=== PATIENT | female | born 1930 | race Caucasian/White ===

== ENCOUNTER → 2018-08-28 | Day surgery (SDC) | payer MEDICARE ==
[~2018-08-28] MED LIST: LACTATED RINGERS 1,000 ML IV SCH; LIDOCAINE 1% 20 ML VIAL (10MG/ML) FOR IV START INTRADERMA PRN; LIDOCAINE 1% INJ 10MG/ML (20 ML MDV) ONE; PROPOFOL 10 MG/ML 20 ML VIAL IV ONE
--- NOTE | 2018-08-28 08:19 | P.GSHP ---
History of Present Illness H&P Date: 08/28/18 CHIEF COMPLAINT: GERD and colon screen HISTORY OF PRESENT ILLNESS: The patient is a 88-year-old female who presents with gastroesophageal reflux disease and need for colon screen. Upper and lower endoscopy were offered for further evaluation and management. PAST MEDICAL HISTORY: Please see list. PAST SURGICAL HISTORY: Please see list. MEDICATIONS: Please see list. ALLERGIES: Please see list. SOCIAL HISTORY: No illicit drug use FAMILY HISTORY: No reports of Crohn disease or ulcerative colitis. REVIEW OF ORGAN SYSTEMS: CONSTITUTIONAL: No reports of fevers or chills. GI: Denies any blood in stools or constipation. PHYSICAL EXAM: VITAL SIGNS: Stable GENERAL: Well-developed pleasant in no acute distress. HEENT: No scleral icterus. Extraocular movements grossly intact. Moist buccal mucosa. NECK: Supple without lymphadenopathy. CHEST: Unlabored respirations. Equal bilateral excursions. CARDIOVASCULAR: Regular rate and rhythm. Distal 2+ pulses. ABDOMEN: Soft, nondistended. MUSCULOSKELETAL: No clubbing, cyanosis, or edema. ASSESSMENT: 1. Gastroesophageal reflux disease 2. Colon screen. PLAN: 1. Recommend proceeding with an upper and lower endoscopy Past Medical History Past Medical History: Hypertension, Osteoarthritis (OA), Thyroid Disorder Additional Past Medical History / Comment(s): PRE-DIABETIC History of Any Multi-Drug Resistant Organisms: None Reported Past Surgical History: Adenoidectomy, Cholecystectomy, Orthopedic Surgery, Tonsillectomy Additional Past Surgical History / Comment(s): BILATERAL CATARACTS. RIGHT ROTATOR CUFF. LEFT CARPAL TUNNEL. Past Anesthesia/Blood Transfusion Reactions: No Reported Reaction Past Psychological History: No Psychological Hx Reported Smoking Status: Never smoker Past Alcohol Use History: Rare Past Drug Use History: None Reported Medications and Allergies Home Medications Medication Instructions Recorded Confirmed Type Acetaminophen Tab [Tylenol] 1 tab PO DAILY 08/26/18 08/26/18 History Biotin 1 tab PO DAILY 08/26/18 08/26/18 History Cholecalciferol [Vitamin D3] 1 tab PO DAILY 08/26/18 08/26/18 History Cranberry Fruit Extract [Cranberry] 1 tab PO DAILY 08/26/18 08/26/18 History Levothyroxine Sodium [Synthroid] 50 mcg PO QAM 08/26/18 08/26/18 History Niacin 1 tab PO DAILY 08/26/18 08/26/18 History amLODIPine [Norvasc] 10 mg PO QAM 08/26/18 08/26/18 History Allergies Allergy/AdvReac Type Severity Reaction Status Date / Time acetaminophen [From Lortab] AdvReac Rash/Hives Verified 08/26/18 11:01 ciprofloxacin AdvReac Rash/Hives Verified 08/26/18 11:01 hydrocodone [From Lortab] AdvReac Rash/Hives Verified 08/26/18 11:01 NSAIDS (Non-Steroidal AdvReac KIDNEY Verified 08/26/18 11:01 Anti-Inflamma PROBLEMS
[2018-08-28 11:02] VITALS: TEMP 97.7
--- NOTE | 2018-08-28 12:03 | P.PCN ---
Date of Procedure: 08/28/18 Description of Procedure: PREOPERATIVE DIAGNOSIS: Altered bowel function POSTOPERATIVE DIAGNOSIS: Altered bowel function Tubular adenoma, sigmoid colon. External hemorrhoids, grade 2. OPERATION: Colonoscopy to the ileocecal valve and appendiceal orifice. Colonoscopy with hot snare polypectomies Colonoscopy with ablation SURGEON: Glory Villela MD. ANESTHESIA: MAC. INDICATIONS: The patient is a 88-year-old female who presents with change in bowel habits. Benefits and risks were described and informed consent was obtained. DESCRIPTION OF PROCEDURE: The patient had undergone Gatorade, MiraLAX and Dulcolax prep. She had been brought into the operating room and laid in the left lateral decubitus position. After adequate intravenous sedation, the rectum was examined with 2% lidocaine jelly. External hemorrhoids were encountered. The rectal tone was within normal limits. No lesions were palpated in the rectal vault. An Olympus colonoscope was advanced until the ileocecal valve and appendiceal orifice were clearly viewed. The prep was fair with visualization of the mucosal folds. The scope was removed with visualization of each mucosal fold. Severe sigmoid diverticulosis was encountered. Colonic polyps treated with snare polypectomy and ablation. No evidence of focal colitis was found. Retroflexion of the scope demonstrated grade 1 internal hemorrhoids without active bleeding or inflammation. The colon was desufflated. The patient had tolerated the procedure well. Withdrawal time was over 6 minutes. FINDINGS: [place] preparation quality scale 1 (1-5) Internal hemorrhoids, grade 1 External hemorrhoids, grade 2. No arteriovenous malformations. Removal of 2 polyps from the proximal, mid transverse colon and descending colon: - Snare polypectomy 25 cm from the anal verge, 5 mm tubulovillous adenoma polyp, sigmoid colon - Ablation of polyp at 20 cm from the anal verge, 4 mm flat villous adenoma polyp, sigmoid colon Severe sigmoid diverticulosis No focal colitis. RECOMMENDATIONS: Repeat colonoscopy in 5 years, 2023 or use Cologaurd Plan - Discharge Summary Discharge Rx Participant: No New Discharge Prescriptions: No Action amLODIPine [Norvasc] 10 mg PO QAM Niacin 1 tab PO DAILY Levothyroxine Sodium [Synthroid] 50 mcg PO QAM Cranberry Fruit Extract [Cranberry] 1 tab PO DAILY Cholecalciferol [Vitamin D3] 1 tab PO DAILY Biotin 1 tab PO DAILY Acetaminophen Tab [Tylenol] 1 tab PO DAILY Discharge Medication List Acetaminophen Tab [Tylenol] 1 tab PO DAILY 08/26/18 [History] Biotin 1 tab PO DAILY 08/26/18 [History] Cholecalciferol [Vitamin D3] 1 tab PO DAILY 08/26/18 [History] Cranberry Fruit Extract [Cranberry] 1 tab PO DAILY 08/26/18 [History] Levothyroxine Sodium [Synthroid] 50 mcg PO QAM 08/26/18 [History] Niacin 1 tab PO DAILY 08/26/18 [History] amLODIPine [Norvasc] 10 mg PO QAM 08/26/18 [History] Follow up Appointment(s)/Referral(s): Glory Villela MD [STAFF PHYSICIAN] - 09/10/18 Patient Instructions/Handouts: Diverticulosis (DC), Diverticulosis Diet (GEN), Colorectal Polyps (DC) Activity/Diet/Wound Care/Special Instructions: Lower endoscopy in 5 years, 2023 for history of polyps Discharge Disposition: HOME SELF-CARE
[2018-08-28 12:17] VITALS: BP 182/90; PULSE 71; RESP 17
== END | disposition home or self-care (01) ==
LOC: ORWHC2ENDO 10:31
PROVIDERS: ATTEND Surgery Plastic and Reconstructive Surgery
DX: D12.5 Benign neoplasm of sigmoid colon (principal); K57.30 Diverticulosis of large intestine without perforation or abscess without bleeding; K64.0 First degree hemorrhoids; K64.4 Residual hemorrhoidal skin tags; I10 Essential (primary) hypertension; M19.90 Unspecified osteoarthritis, unspecified site; E07.9 Disorder of thyroid, unspecified; Z88.6 Allergy status to analgesic agent; Z88.1 Allergy status to other antibiotic agents; Z88.5 Allergy status to narcotic agent; Z90.49 Acquired absence of other specified parts of digestive tract; Z79.890 Hormone replacement therapy; Z79.899 Other long term (current) drug therapy
CPT/HCPCS: 88305; 45388; 45385; J2001; J2704

== ENCOUNTER 2019-06-02 11:49 | Emergency (ER) | payer MEDICARE ==
[2019-06-02] MEDS ORDERED: SODIUM CHLORIDE 0.9% 1,000 ML IV STA (13:22)
[2019-06-02] MEDS ORDERED: DICYCLOMINE 10 MG CAP PO STA (13:22)
[2019-06-02 13:37] LABS: Basophils % (A) 0 %; Eosinophils # (A) 0.1 k/uL (0-0.7); Eosinophils % (A) 1 %; HCT 44.2 % (34.0-46.0); HGB 15.1 gm/dL (11.4-16.0); Lymphocytes # (A) 1.4 k/uL (1.0-4.8); Lymphocytes % (A) 12 %; MCH 30.5 pg (25.0-35.0); MCHC 34.3 g/dL (31.0-37.0); Mean Platelet Volume 10.3; Monocytes # (A) 0.5 k/uL (0-1.0); Monocytes % (A) 5 %; Neutrophils # (A) 9.2 k/uL (1.3-7.7); Neutrophils % (A) 80 %; Platelet Count 177 k/uL (150-450); RBC 4.96 m/uL (3.80-5.40); WBC 11.6 k/uL (3.8-10.6)
[2019-06-02 13:43] LABS: Albumin 3.7 g/dL (3.5-5.0); Calcium 9.5 mg/dL (8.4-10.2); Total Bilirubin 1.4 mg/dL (0.2-1.3); Total Protein 7.1 g/dL (6.3-8.2)
[2019-06-02 13:56] LABS: Potassium 4.3 mmol/L (3.5-5.1)
[2019-06-02 14:19] VITALS: RESP 20
[2019-06-02 14:30] LABS: Amorphous Sediment,Urine Rare /hpf; Appearance,Urine Cloudy (Clear); Bacteria,Urine Many /hpf; Bilirubin,Urine Negative (Negative); Blood,Urine Small (Negative); Color,Urine Yellow; Glucose,Urine (UA) Negative (Negative); Ketones,Urine 1+ (Negative); Leukocyte Esterase,Urine Large (Negative); Mucus,Urine Many /hpf; Nitrite,Urine Positive (Negative); Protein,Urine 2+ (Negative); RBC,Urine 3 /hpf (0-5); Specific Gravity,Urine 1.023 (1.001-1.035); Squamous Epithelial Cell,Urine 5 /hpf (0-4); Urobilinogen,Urine <2.0 mg/dL (<2.0); WBC,Urine 155 /hpf (0-5)
[2019-06-02] MEDS ORDERED: cefTRIAXone IN SWFI 1,000 MG/10 ML SYRINGE IVP STA (16:25)
--- NOTE | 2019-06-02 16:42 | ED ---
Nausea/Vomiting/Diarrhea HPI - General Chief complaint: Nausea/Vomiting/Diarrhea Stated complaint: diarrhea Source: patient Mode of arrival: wheelchair Limitations: no limitations - History of Present Illness Initial comments: The patient is an 88 year old female with past medical history of hypertension and thyroid disease who presents to the emergency Department with reported diarrhea since . The patient states that she went out to eat restaurant and afterwards began having an upset stomach with vomiting. Denies that it is bloody or bilious. She also developed loose, watery stool. Denies hematochezia or melanotic stools. The vomiting ceased however she has continued to have diarrhea. States that it affects her every time she eats something. She has avoided any type of food intake because of the persistent diarrhea. She denies any recent travel or antibiotic use. Denies any current abdominal pain. Denies dysuria, hematuria or difficulty voiding. Denies any chest pain or shortness of breath. No back or flank pain. No fevers or chills. There are no other alleviating, precipitating or modifying factors - Related Data Home Medications Medication Instructions Recorded Confirmed Acetaminophen Tab [Tylenol] 1 tab PO DAILY 08/26/18 08/28/18 Biotin 1 tab PO DAILY 08/26/18 08/28/18 Cholecalciferol [Vitamin D3] 1 tab PO DAILY 08/26/18 08/28/18 Cranberry Fruit Extract [Cranberry] 1 tab PO DAILY 08/26/18 08/28/18 Levothyroxine Sodium [Synthroid] 50 mcg PO QAM 08/26/18 08/28/18 Niacin 1 tab PO DAILY 08/26/18 08/28/18 amLODIPine [Norvasc] 10 mg PO QAM 08/26/18 08/28/18 Previous Rx's Medication Instructions Recorded Cephalexin [Keflex] 500 mg PO Q12HR #14 cap 06/02/19 Dicyclomine [Bentyl] 10 mg PO TID PRN #20 tablet 06/02/19 Ondansetron Odt [Zofran Odt] 4 mg PO Q8HR PRN #10 tab 06/02/19 Allergies Allergy/AdvReac Type Severity Reaction Status Date / Time acetaminophen [From Lortab] AdvReac Rash/Hives Verified 06/02/19 12:43 ciprofloxacin AdvReac Rash/Hives Verified 06/02/19 12:43 hydrocodone [From Lortab] AdvReac Rash/Hives Verified 06/02/19 12:43 NSAIDS (Non-Steroidal AdvReac KIDNEY Verified 06/02/19 12:43 Anti-Inflamma PROBLEMS Review of Systems ROS Statement: Those systems with pertinent positive or pertinent negative responses have been documented in the HPI. ROS Other: All systems not noted in ROS Statement are negative. Past Medical History Past Medical History: Hypertension, Osteoarthritis (OA), Thyroid Disorder Additional Past Medical History / Comment(s): PRE-DIABETIC History of Any Multi-Drug Resistant Organisms: None Reported Past Surgical History: Adenoidectomy, Cholecystectomy, Orthopedic Surgery, Tonsillectomy Additional Past Surgical History / Comment(s): BILATERAL CATARACTS. RIGHT ROTATOR CUFF. LEFT CARPAL TUNNEL. Past Anesthesia/Blood Transfusion Reactions: No Reported Reaction Past Psychological History: No Psychological Hx Reported Smoking Status: Never smoker Past Alcohol Use History: None Reported Past Drug Use History: None Reported General Exam Limitations: no limitations Course Vital Signs 06/02/19 06/02/19 06/02/19 12:41 12:43 13:43 Temperature 98.0 F Pulse Rate 77 Respiratory 18 18 18 Rate Blood Pressure 134/67 O2 Sat by Pulse 97 97 97 Oximetry 06/02/19 06/02/19 06/02/19 14:00 15:00 16:00 Temperature Pulse Rate 68 68 Respiratory 20 20 20 Rate Blood Pressure 175/78 163/75 162/73 O2 Sat by Pulse 97 95 95 Oximetry 06/02/19 06/02/19 06/02/19 17:00 18:00 18:17 Temperature 100.7 F H Pulse Rate 67 71 Respiratory 20 20 20 Rate Blood Pressure 143/56 144/63 144/63 O2 Sat by Pulse 95 96 98 Oximetry Medical Decision Making - Medical Decision Making Upon arrival the patient was placed into room 18. A thorough history and physical exam was performed. Peripheral IV was established. The patient was given a liter bolus of normal saline. He did offer her something for pain and nausea however the patient refuses nausea medications. She did except Bentyl. Laboratory studies demonstrated a white blood cell count of 11.6. Creatinine is 1.1. Achilles are 1.4. Urinalysis shows small blood, positive nitrates, 155 white blood cells, 5 epithelial cells, many bacteria. Stool is negative for C. diff and blood area and I discussed results with the patient. She was given a dose of Rocephin for urinary tract infection. Repeat vital demonstrate that the patient does spike a fever of 100.7. Remainder of vitals are stable. I discussed diagnosis, differential and treatment options. I did offer imaging to the patient however she refused. At this time the patient will be discharged home and given prescriptions for Bentyl, Zofran and Keflex. RUFUS rose primary care doctor to 4 days. Return to the emergency room for any new or worsening symptoms. The patient was in agreement with the treatment plan and discharged home in stable condition - Lab Data Result diagrams: 06/02/19 13:00 06/02/19 13:00 Lab Results 06/02/19 06/02/19 06/02/19 Range/Units 13:00 13:00 13:00 WBC 11.6 H (3.8-10.6) k/uL RBC 4.96 (3.80-5.40) m/uL Hgb 15.1 (11.4-16.0) gm/dL Hct 44.2 (34.0-46.0) % MCV 89.0 (80.0-100.0) fL MCH 30.5 (25.0-35.0) pg MCHC 34.3 (31.0-37.0) g/dL RDW 14.0 (11.5-15.5) % Plt Count 177 (150-450) k/uL Neutrophils % 80 % Lymphocytes % 12 % Monocytes % 5 % Eosinophils % 1 % Basophils % 0 % Neutrophils # 9.2 H (1.3-7.7) k/uL Lymphocytes # 1.4 (1.0-4.8) k/uL Monocytes # 0.5 (0-1.0) k/uL Eosinophils # 0.1 (0-0.7) k/uL Basophils # 0.0 (0-0.2) k/uL Sodium 135 L (137-145) mmol/L Potassium 4.3 (3.5-5.1) mmol/L Chloride 103 (98-107) mmol/L Carbon Dioxide 22 (22-30) mmol/L Anion Gap 10 mmol/L BUN 30 H (7-17) mg/dL Creatinine 1.11 H (0.52-1.04) mg/dL Est GFR (CKD-EPI)AfAm 52 (>60 ml/min/1.73 sqM) Est GFR (CKD-EPI)NonAf 45 (>60 ml/min/1.73 sqM) Glucose 99 (74-99) mg/dL Plasma Lactic Acid Abdoulaye 1.1 (0.7-2.0) mmol/L Calcium 9.5 (8.4-10.2) mg/dL Total Bilirubin 1.4 H (0.2-1.3) mg/dL AST 36 (14-36) U/L ALT 19 (4-34) U/L Alkaline Phosphatase 101 (38-126) U/L Total Protein 7.1 (6.3-8.2) g/dL Albumin 3.7 (3.5-5.0) g/dL Lipase 117 (23-300) U/L TSH 2.220 (0.465-4.680) mIU/L Urine Color Urine Appearance (Clear) Urine pH (5.0-8.0) Ur Specific [place] (1.001-1.035) Urine Protein (Negative) Urine Glucose (UA) (Negative) Urine Ketones (Negative) Urine Blood (Negative) Urine Nitrite (Negative) Urine Bilirubin (Negative) Urine Urobilinogen (<2.0) mg/dL Ur Leukocyte Esterase (Negative) Urine RBC (0-5) /hpf Urine WBC (0-5) /hpf Ur Squamous Epith Cells (0-4) /hpf Amorphous Sediment (None) /hpf Urine Bacteria (None) /hpf Urine Mucus (None) /hpf Stool Occult Blood (Negative) C. difficile (EIA) Intrp (Negative) 06/02/19 06/02/19 06/02/19 Range/Units 13:50 16:35 16:35 WBC (3.8-10.6) k/uL RBC (3.80-5.40) m/uL Hgb (11.4-16.0) gm/dL Hct (34.0-46.0) % MCV (80.0-100.0) fL MCH (25.0-35.0) pg MCHC (31.0-37.0) g/dL RDW (11.5-15.5) % Plt Count (150-450) k/uL Neutrophils % % Lymphocytes % % Monocytes % % Eosinophils % % Basophils % % Neutrophils # (1.3-7.7) k/uL Lymphocytes # (1.0-4.8) k/uL Monocytes # (0-1.0) k/uL Eosinophils # (0-0.7) k/uL Basophils # (0-0.2) k/uL Sodium (137-145) mmol/L Potassium (3.5-5.1) mmol/L Chloride (98-107) mmol/L Carbon Dioxide (22-30) mmol/L Anion Gap mmol/L BUN (7-17) mg/dL Creatinine (0.52-1.04) mg/dL Est GFR (CKD-EPI)AfAm (>60 ml/min/1.73 sqM) Est GFR (CKD-EPI)NonAf (>60 ml/min/1.73 sqM) Glucose (74-99) mg/dL Plasma Lactic Acid Abdoulaye (0.7-2.0) mmol/L Calcium (8.4-10.2) mg/dL Total Bilirubin (0.2-1.3) mg/dL AST (14-36) U/L ALT (4-34) U/L Alkaline Phosphatase (38-126) U/L Total Protein (6.3-8.2) g/dL Albumin (3.5-5.0) g/dL Lipase (23-300) U/L TSH (0.465-4.680) mIU/L Urine Color Yellow Urine Appearance Cloudy H (Clear) Urine pH 6.0 (5.0-8.0) Ur Specific [place] 1.023 (1.001-1.035) Urine Protein 2+ H (Negative) Urine Glucose (UA) Negative (Negative) Urine Ketones 1+ H (Negative) Urine Blood Small H (Negative) Urine Nitrite Positive H (Negative) Urine Bilirubin Negative (Negative) Urine Urobilinogen <2.0 (<2.0) mg/dL Ur Leukocyte Esterase Large H (Negative) Urine RBC 3 (0-5) /hpf Urine WBC 155 H (0-5) /hpf Ur Squamous Epith Cells 5 H (0-4) /hpf Amorphous Sediment Rare H (None) /hpf Urine Bacteria Many H (None) /hpf Urine Mucus Many H (None) /hpf Stool Occult Blood Negative (Negative) C. difficile (EIA) Intrp Negative (Negative) Disposition Clinical Impression: Acute diarrhea Disposition: HOME SELF-CARE Condition: Stable Instructions (If sedation given, give patient instructions): Acute Diarrhea (ED) Additional Instructions: Please follow up with the primary care doctor in 2-4 days. Return to the emergency room for any worsening symptoms. take the Keflex as directed for urinary tract infection. Take the Zofran for nausea. Take the Bentyl for diarrhea. Prescriptions: Dicyclomine [Bentyl] 10 mg PO TID PRN #20 tablet PRN Reason: Diarrhea Cephalexin [Keflex] 500 mg PO Q12HR #14 cap Ondansetron Odt [Zofran Odt] 4 mg PO Q8HR PRN #10 tab PRN Reason: Nausea Is patient prescribed a controlled substance at d/c from ED?: No Referrals: Dwaine Fernandez DO [Primary Care Provider] - 1-2 days Time of Disposition: 17:41
[2019-06-02 18:00] VITALS: TEMP 100.7
[2019-06-02 18:09] VITALS: BP 144/63; PULSE 71
== END 2019-06-02 18:19 | disposition home or self-care (01) ==
LOC: EC 11:49
DX: R19.7 Diarrhea, unspecified (principal); R11.2 Nausea with vomiting, unspecified; N39.0 Urinary tract infection, site not specified; I10 Essential (primary) hypertension; E07.9 Disorder of thyroid, unspecified; Z79.890 Hormone replacement therapy; Z79.899 Other long term (current) drug therapy; Z88.1 Allergy status to other antibiotic agents; Z88.5 Allergy status to narcotic agent; Z88.6 Allergy status to analgesic agent
CPT/HCPCS: 36415; 80053; 84443; 83605; 83690; 85025; 82272; 81001; 87324; 87086; 87045; 83630; 87046; 99284; 96374; 96361; J0696; 87077; 87186

== ENCOUNTER 2019-11-20 15:01 | Emergency (ER) | payer MEDICARE ==
[2019-11-20 15:16] VITALS: RESP 16
[2019-11-20] MEDS ORDERED: SODIUM CHLORIDE 0.9% 500 ML 500 ML IV STA (15:53)
[2019-11-20 16:05] LABS: Basophils # (A) 0.1 k/uL (0-0.2); Basophils % (A) 1 %; Eosinophils # (A) 0.4 k/uL (0-0.7); Eosinophils % (A) 4 %; HCT 48.8 % (34.0-46.0); HGB 15.9 gm/dL (11.4-16.0); Lymphocytes # (A) 3.7 k/uL (1.0-4.8); Lymphocytes % (A) 31 %; MCH 29.3 pg (25.0-35.0); MCHC 32.6 g/dL (31.0-37.0); MCV 89.9 fL (80.0-100.0); Mean Platelet Volume 9.1; Monocytes # (A) 0.6 k/uL (0-1.0); Monocytes % (A) 5 %; Neutrophils # (A) 6.9 k/uL (1.3-7.7); Neutrophils % (A) 58 %; Platelet Count 261 k/uL (150-450); RBC 5.44 m/uL (3.80-5.40); RDW 14.8 % (11.5-15.5); WBC 11.9 k/uL (3.8-10.6)
[2019-11-20 16:17] LABS: Albumin 4.6 g/dL (3.5-5.0); Calcium 10.3 mg/dL (8.4-10.2); Total Bilirubin 1.3 mg/dL (0.2-1.3); Total Protein 8.1 g/dL (6.3-8.2)
--- NOTE | 2019-11-20 16:41 | ED ---
Abdominal Pain HPI - General Chief Complaint: Abdominal Pain Stated Complaint: diarrhea Time Seen by Provider: 11/20/19 15:21 Source: patient Mode of arrival: wheelchair Limitations: no limitations - History of Present Illness Initial Comments: Patient is an 89-year-old female presenting to the emergency Department with complaints of 2 episodes of diarrhea since Sunday. Patient states she had one episode on Sunday and then again yesterday and this morning. Patient states she has had "E. coli poisoning" in the past and is getting concerned that she is getting sick again. Patient admits to one episode of left upper quadrant "pinching" that happened on Sunday but nothing since then. Patient denies any recent fever, chills, nausea, vomiting. She denies any abdominal pain. She denies chest pain, shortness of breath. She has been able to eat and drink as normal. She admits to history of cholecystectomy, no other abdominal surgeries. She has no further complaints at this time. Upon arrival to the ER, her vitals are stable. - Related Data Home Medications Medication Instructions Recorded Confirmed Acetaminophen Tab [Tylenol] 1 tab PO DAILY 08/26/18 08/28/18 Biotin 1 tab PO DAILY 08/26/18 08/28/18 Cholecalciferol [Vitamin D3] 1 tab PO DAILY 08/26/18 08/28/18 Cranberry Fruit Extract [Cranberry] 1 tab PO DAILY 08/26/18 08/28/18 Levothyroxine Sodium [Synthroid] 50 mcg PO QAM 08/26/18 08/28/18 Niacin 1 tab PO DAILY 08/26/18 08/28/18 amLODIPine [Norvasc] 10 mg PO QAM 08/26/18 08/28/18 Previous Rx's Medication Instructions Recorded Cephalexin [Keflex] 500 mg PO Q12HR #14 cap 06/02/19 Dicyclomine [Bentyl] 10 mg PO TID PRN #20 tablet 06/02/19 Ondansetron Odt [Zofran Odt] 4 mg PO Q8HR PRN #10 tab 06/02/19 Allergies Allergy/AdvReac Type Severity Reaction Status Date / Time acetaminophen [From Lortab] AdvReac Rash/Hives Verified 06/02/19 12:43 amoxicillin AdvReac Nausea & Verified 11/20/19 15:17 Vomiting ciprofloxacin AdvReac Rash/Hives Verified 06/02/19 12:43 hydrocodone [From Lortab] AdvReac Rash/Hives Verified 06/02/19 12:43 NSAIDS (Non-Steroidal AdvReac KIDNEY Verified 06/02/19 12:43 Anti-Inflamma PROBLEMS Review of Systems ROS Statement: Those systems with pertinent positive or pertinent negative responses have been documented in the HPI. ROS Other: All systems not noted in ROS Statement are negative. Past Medical History Past Medical History: Hypertension, Osteoarthritis (OA), Thyroid Disorder Additional Past Medical History / Comment(s): PRE-DIABETIC History of Any Multi-Drug Resistant Organisms: None Reported Past Surgical History: Adenoidectomy, Cholecystectomy, Orthopedic Surgery, Tonsillectomy Additional Past Surgical History / Comment(s): BILATERAL CATARACTS. RIGHT ROTATOR CUFF. LEFT CARPAL TUNNEL. Past Anesthesia/Blood Transfusion Reactions: No Reported Reaction Past Psychological History: No Psychological Hx Reported Smoking Status: Never smoker Past Alcohol Use History: None Reported Past Drug Use History: None Reported General Exam - General Exam Comments Initial Comments: GENERAL: Well-appearing, well-nourished and in no acute distress. HEAD: Atraumatic, normocephalic. EYES: Pupils equal round and reactive to light, extraocular movements intact, sclera anicteric, conjunctiva are normal. ENT: TMs normal, nares patent, oropharynx clear without exudates. Moist mucous membranes. NECK: Normal range of motion, supple without lymphadenopathy or JVD. LUNGS: Breath sounds clear to auscultation bilaterally and equal. No wheezes rales or rhonchi. HEART: Regular rate and rhythm without murmurs, rubs or gallops. ABDOMEN: Soft, nontender, normoactive bowel sounds. No guarding, no rebound. No masses appreciated. : Deferred EXTREMITIES: Normal range of motion, no pitting or edema. No clubbing or cyanosis. NEUROLOGICAL: Normal speech, normal gait. PSYCH: Normal mood, normal affect. SKIN: Warm, Dry, normal turgor, no rashes or lesions noted. Limitations: no limitations Course Vital Signs 11/20/19 11/20/19 15:12 17:53 Temperature 98 F 97.4 F L Pulse Rate 65 66 Respiratory 16 16 Rate Blood Pressure 165/62 171/84 O2 Sat by Pulse 98 97 Oximetry Medical Decision Making - Medical Decision Making Patient is an 89-year-old female presenting with 2 episodes of diarrhea since Sunday. No abdominal pain. Exam is unremarkable. Labs did reveal a very slight leukocytosis at 11, lactic acid was normal creatinine was 1.06. Urine shows no signs of infection. Patient was given 1 L of fluids. Discussed with patient this is most likely viral in nature. I recommended taking Imodium for the diarrhea. Continue to increase fluid intake as she was slightly dehydrated. Patient is stable for discharge. Patient is agreement with this plan of care. Return parameters were discussed with the patient and she verbalized understanding. Case discussed with Dr. Howell. - Lab Data Result diagrams: 11/20/19 15:42 11/20/19 15:42 Lab Results 11/20/19 11/20/19 11/20/19 Range/Units 15:42 15:42 15:42 WBC 11.9 H (3.8-10.6) k/uL RBC 5.44 H (3.80-5.40) m/uL Hgb 15.9 (11.4-16.0) gm/dL Hct 48.8 H (34.0-46.0) % MCV 89.9 (80.0-100.0) fL MCH 29.3 (25.0-35.0) pg MCHC 32.6 (31.0-37.0) g/dL RDW 14.8 (11.5-15.5) % Plt Count 261 (150-450) k/uL Neutrophils % 58 % Lymphocytes % 31 % Monocytes % 5 % Eosinophils % 4 % Basophils % 1 % Neutrophils # 6.9 (1.3-7.7) k/uL Lymphocytes # 3.7 (1.0-4.8) k/uL Monocytes # 0.6 (0-1.0) k/uL Eosinophils # 0.4 (0-0.7) k/uL Basophils # 0.1 (0-0.2) k/uL Sodium 137 (137-145) mmol/L Potassium 4.0 (3.5-5.1) mmol/L Chloride 101 (98-107) mmol/L Carbon Dioxide 24 (22-30) mmol/L Anion Gap 12 mmol/L BUN 17 (7-17) mg/dL Creatinine 1.06 H (0.52-1.04) mg/dL Est GFR (CKD-EPI)AfAm 55 (>60 ml/min/1.73 sqM) Est GFR (CKD-EPI)NonAf 47 (>60 ml/min/1.73 sqM) Glucose 125 H (74-99) mg/dL Plasma Lactic Acid Abdoulaye 1.4 (0.7-2.0) mmol/L Calcium 10.3 H (8.4-10.2) mg/dL Total Bilirubin 1.3 (0.2-1.3) mg/dL AST 31 (14-36) U/L ALT 31 (4-34) U/L Alkaline Phosphatase 66 (38-126) U/L Total Protein 8.1 (6.3-8.2) g/dL Albumin 4.6 (3.5-5.0) g/dL Urine Color Urine Appearance (Clear) Urine pH (5.0-8.0) Ur Specific [place] (1.001-1.035) Urine Protein (Negative) Urine Glucose (UA) (Negative) Urine Ketones (Negative) Urine Blood (Negative) Urine Nitrite (Negative) Urine Bilirubin (Negative) Urine Urobilinogen (<2.0) mg/dL Ur Leukocyte Esterase (Negative) 11/20/19 Range/Units 16:53 WBC (3.8-10.6) k/uL RBC (3.80-5.40) m/uL Hgb (11.4-16.0) gm/dL Hct (34.0-46.0) % MCV (80.0-100.0) fL MCH (25.0-35.0) pg MCHC (31.0-37.0) g/dL RDW (11.5-15.5) % Plt Count (150-450) k/uL Neutrophils % % Lymphocytes % % Monocytes % % Eosinophils % % Basophils % % Neutrophils # (1.3-7.7) k/uL Lymphocytes # (1.0-4.8) k/uL Monocytes # (0-1.0) k/uL Eosinophils # (0-0.7) k/uL Basophils # (0-0.2) k/uL Sodium (137-145) mmol/L Potassium (3.5-5.1) mmol/L Chloride (98-107) mmol/L Carbon Dioxide (22-30) mmol/L Anion Gap mmol/L BUN (7-17) mg/dL Creatinine (0.52-1.04) mg/dL Est GFR (CKD-EPI)AfAm (>60 ml/min/1.73 sqM) Est GFR (CKD-EPI)NonAf (>60 ml/min/1.73 sqM) Glucose (74-99) mg/dL Plasma Lactic Acid Abdoulaye (0.7-2.0) mmol/L Calcium (8.4-10.2) mg/dL Total Bilirubin (0.2-1.3) mg/dL AST (14-36) U/L ALT (4-34) U/L Alkaline Phosphatase (38-126) U/L Total Protein (6.3-8.2) g/dL Albumin (3.5-5.0) g/dL Urine Color Yellow Urine Appearance Clear (Clear) Urine pH 5.5 (5.0-8.0) Ur Specific [place] 1.008 (1.001-1.035) Urine Protein Negative (Negative) Urine Glucose (UA) Negative (Negative) Urine Ketones Negative (Negative) Urine Blood Negative (Negative) Urine Nitrite Negative (Negative) Urine Bilirubin Negative (Negative) Urine Urobilinogen <2.0 (<2.0) mg/dL Ur Leukocyte Esterase Negative (Negative) Disposition Clinical Impression: Diarrhea, Dehydration Disposition: HOME SELF-CARE Condition: Stable Instructions (If sedation given, give patient instructions): Acute Diarrhea (ED) Additional Instructions: Please return to the Emergency Department if symptoms worsen or any other concerns. Trial of Imodium for the diarrhea. Increase fluid intake. Follow-up with PCP. Is patient prescribed a controlled substance at d/c from ED?: No Referrals: Dwaine Fernandez DO [Primary Care Provider] - 1-2 days
[2019-11-20 17:11] LABS: Appearance,Urine Clear (Clear); Bilirubin,Urine Negative (Negative); Blood,Urine Negative (Negative); Color,Urine Yellow; Glucose,Urine (UA) Negative (Negative); Ketones,Urine Negative (Negative); Leukocyte Esterase,Urine Negative (Negative); Nitrite,Urine Negative (Negative); PH, Urine 5.5 (5.0-8.0); Protein,Urine Negative (Negative); Specific Gravity,Urine 1.008 (1.001-1.035); Urobilinogen,Urine <2.0 mg/dL (<2.0)
[2019-11-20 17:54] VITALS: BP 171/84; PULSE 66; TEMP 97.4
== END 2019-11-20 17:54 | disposition home or self-care (01) ==
LOC: EC 15:01
DX: E86.0 Dehydration (principal); R19.7 Diarrhea, unspecified; D72.829 Elevated white blood cell count, unspecified; E07.9 Disorder of thyroid, unspecified; I10 Essential (primary) hypertension; Z79.890 Hormone replacement therapy; Z79.899 Other long term (current) drug therapy; Z88.0 Allergy status to penicillin; Z88.1 Allergy status to other antibiotic agents; Z88.5 Allergy status to narcotic agent; Z88.6 Allergy status to analgesic agent; Z90.49 Acquired absence of other specified parts of digestive tract
CPT/HCPCS: 36415; 80053; 81003; 83605; 85025; 96360; 99284

== ENCOUNTER 2021-06-29 08:05 | Inpatient (IN) | payer MEDICARE ==
[2021-06-29] MEDS ORDERED: ASPIRIN 81 MG PO STA (08:20)
--- NOTE | 2021-06-29 08:32 | ED ---
Chest Pain HPI - General Chief Complaint: Chest Pain Stated Complaint: chest pressure Time Seen by Provider: 06/29/21 08:15 Source: patient, RN notes reviewed Mode of arrival: ambulatory Limitations: no limitations - History of Present Illness Initial Comments: This is an 89-year-old female presents emergency Department with chief complaint of chest pain. Patient states the pressure started sometime last night. Patient states it persists. Patient states it's in her central region does radiate back some. Patient states that she feels short of breath feels that something is sitting on her. Patient does have a history of hypertension denies hyperlipidemia and states that she is a diabetic with A1c of 6.7. Patient states she is diet controlled. Patient denies any fevers chills states she's had some indigestion. - Related Data Home Medications Medication Instructions Recorded Confirmed Acetaminophen Tab [Tylenol] 1 tab PO DAILY 08/26/18 08/28/18 Biotin 1 tab PO DAILY 08/26/18 08/28/18 Cholecalciferol [Vitamin D3] 1 tab PO DAILY 08/26/18 08/28/18 Cranberry Fruit Extract [Cranberry] 1 tab PO DAILY 08/26/18 08/28/18 Levothyroxine Sodium [Synthroid] 50 mcg PO QAM 08/26/18 08/28/18 Niacin 1 tab PO DAILY 08/26/18 08/28/18 amLODIPine [Norvasc] 10 mg PO QAM 08/26/18 08/28/18 Previous Rx's Medication Instructions Recorded Cephalexin [Keflex] 500 mg PO Q12HR #14 cap 06/02/19 Dicyclomine [Bentyl] 10 mg PO TID PRN #20 tablet 06/02/19 Ondansetron Odt [Zofran Odt] 4 mg PO Q8HR PRN #10 tab 06/02/19 Allergies Allergy/AdvReac Type Severity Reaction Status Date / Time acetaminophen [From Lortab] AdvReac Rash/Hives Verified 06/29/21 08:08 amoxicillin AdvReac Nausea & Verified 06/29/21 08:08 Vomiting ciprofloxacin AdvReac Rash/Hives Verified 06/29/21 08:08 hydrocodone [From Lortab] AdvReac Rash/Hives Verified 06/29/21 08:08 NSAIDS (Non-Steroidal AdvReac KIDNEY Verified 06/29/21 08:08 Anti-Inflamma PROBLEMS Review of Systems ROS Statement: Those systems with pertinent positive or pertinent negative responses have been documented in the HPI. ROS Other: All systems not noted in ROS Statement are negative. EKG Findings - EKG Comments: EKG Findings:: EKG performed at 8:23 is normal sinus rhythm with intraventricular block there is noted to still duration these 2 activity with some mild depression in V4-6 Past Medical History Past Medical History: Hypertension, Osteoarthritis (OA), Thyroid Disorder Additional Past Medical History / Comment(s): PRE-DIABETIC History of Any Multi-Drug Resistant Organisms: None Reported Past Surgical History: Adenoidectomy, Cholecystectomy, Orthopedic Surgery, Tonsillectomy Additional Past Surgical History / Comment(s): BILATERAL CATARACTS. RIGHT ROTATOR CUFF. LEFT CARPAL TUNNEL. Past Anesthesia/Blood Transfusion Reactions: No Reported Reaction Past Psychological History: No Psychological Hx Reported Smoking Status: Never smoker Past Alcohol Use History: None Reported Past Drug Use History: None Reported General Exam Limitations: no limitations General appearance: alert, in no apparent distress Head exam: Present: atraumatic, normocephalic, normal inspection Eye exam: Present: normal appearance, PERRL, EOMI. Absent: scleral icterus, conjunctival injection, periorbital swelling ENT exam: Present: normal exam, normal oropharynx, mucous membranes moist Neck exam: Present: normal inspection. Absent: tenderness, meningismus, lymphadenopathy Respiratory exam: Present: normal lung sounds bilaterally. Absent: respiratory distress, wheezes, rales, rhonchi, stridor Cardiovascular Exam: Present: regular rate, normal rhythm, normal heart sounds. Absent: systolic murmur, diastolic murmur, rubs, gallop, clicks GI/Abdominal exam: Present: soft, normal bowel sounds. Absent: distended, tenderness, guarding, rebound, rigid Course Vital Signs 06/29/21 06/29/21 08:08 08:44 Temperature 97.8 F Pulse Rate 99 86 Respiratory 18 16 Rate Blood Pressure 151/81 153/81 O2 Sat by Pulse 96 95 Oximetry - Reevaluation(s) Reevaluation #1: 06/29/21 08:23 Discuss the case in showed EKG to Dr. Bonilla in the ER who requested the patient have repeat EKG and he was to evaluated Chest Pain MDM - [facility] 89-year-old presented for chest pain, chest pressure. Patient's EKG shows evidence of acute GA. Case was immediately discussed with cardiology Dr. 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 STEMI activation was performed. Patient was given Lipitor, heparin,aspirin Disposition Clinical Impression: ST elevation myocardial infarction (STEMI) Disposition: ADMITTED IP TO THIS HOSP Condition: Serious Referrals: Dwaine Fernandez DO [Primary Care Provider] - 1-2 days
[2021-06-29] MEDS ORDERED: ATORVASTATIN 80 MG TAB PO STA (08:37)
[2021-06-29] MEDS ORDERED: HEPARIN SODIUM 1,000 UN/ML (10ML VL) IV ONE (08:37)
[2021-06-29] MEDS ORDERED: NITROGLYCERIN OINT 1 INCH/GM PACKET TOPICAL STA (08:38)
[2021-06-29] MEDS ORDERED: NITROGLYCERIN SL TABS 0.4 MG TAB SUBLINGUAL PRN (08:39)
[2021-06-29] MEDS ORDERED: VERAPAMIL 2.5 MG/ML 2 ML AMP ONE (08:43)
[2021-06-29] MEDS ORDERED: LIDOCAINE 1% INJ 10MG/ML (20 ML MDV) ONE (08:43)
[2021-06-29] MEDS ORDERED: SODIUM CHLORIDE 0.9% 1,000 ML IV ONE (08:55)
[2021-06-29 08:57] LABS: INR 0.9 (<1.2); Partial Thromboplastin Time 23.6 sec (22.0-30.0)
[2021-06-29] MEDS ORDERED: LIDOCAINE 1% INJ 10MG/ML (20 ML MDV) SQ ONE (08:59)
[2021-06-29] MEDS: MIDAZOLAM 2 MG/2 ML VIAL IV ONE ×2 (09:00→09:20)
--- NOTE | 2021-06-29 09:06 | XR ---
EXAMINATION TYPE: XR chest 1V portable DATE OF EXAM: 06/29/2021 COMPARISON: None INDICATION: Chest pain TECHNIQUE: Single frontal view of the chest is obtained. FINDINGS: The heart size is normal. The pulmonary vasculature is upper limits of normal. Some mild bibasilar increased lung markings. Consider early volume overload or atypical pneumonia. IMPRESSION: 1. Mild increased bibasilar lung markings greater in the right base. Correlate for pulmonary edema ve rsus atypical pneumonia.
[2021-06-29] MEDS ORDERED: HEPARIN SODIUM 1,000 UN/ML (10ML VL) ONE (09:08)
[2021-06-29] MEDS ORDERED: HEPARIN SODIUM 1,000 UN/ML (10ML VL) IVP ONE (09:09)
[2021-06-29] MEDS ORDERED: TICAGRELOR 90 MG TAB ONE (09:22)
[2021-06-29] MEDS: NITROGLYCERIN 1000MCG/10ML SYRINGE INTRACORON ONE ×4 (09:24→10:20)
[2021-06-29] MEDS ORDERED: TICAGRELOR 90 MG TAB PO ONE (09:25)
[2021-06-29 09:31] LABS: Albumin 3.9 g/dL (3.5-5.0); Calcium 10.5 mg/dL (8.4-10.2); Total Bilirubin 1.5 mg/dL (0.2-1.3); Total Protein 7.8 g/dL (6.3-8.2)
[2021-06-29 09:35] LABS: Magnesium 1.4 mg/dL (1.6-2.3); Potassium 4.6 mmol/L (3.5-5.1)
[2021-06-29] MEDS ORDERED: MIDAZOLAM 2 MG/2 ML VIAL IV ONE (09:56)
[2021-06-29 10:11] LABS: Basophils # (A) 0.1 k/uL (0-0.2); Basophils % (A) 0 %; Eosinophils % (A) 0 %; HCT 47.7 % (34.0-46.0); HGB 16.2 gm/dL (11.4-16.0); Lymphocytes # (A) 2.6 k/uL (1.0-4.8); Lymphocytes % (A) 17 %; MCH 31.3 pg (25.0-35.0); MCHC 33.9 g/dL (31.0-37.0); MCV 92.3 fL (80.0-100.0); Mean Platelet Volume 10.4; Monocytes # (A) 0.6 k/uL (0-1.0); Monocytes % (A) 4 %; Neutrophils # (A) 12.1 k/uL (1.3-7.7); Neutrophils % (A) 78 %; Platelet Count 254 k/uL (150-450); RBC 5.17 m/uL (3.80-5.40); RDW 14.7 % (11.5-15.5); WBC 15.6 k/uL (3.8-10.6)
--- NOTE | 2021-06-29 10:23 | CONS ---
CONSULTATION CHIEF COMPLAINT: Chest pain. Danya is an 89-year-old lady with history of dyslipidemia and hypertension who is a prediabetic. She comes to hospital with chest pain. She has been having intermittent episodes of chest discomfort for the last 2 weeks that she describes as a precordial chest pressure, as if a dog is sitting on her chest, moderate to severe in intensity, that radiates to her back. EKG in the emergency room revealed sinus rhythm with acute ST elevation in the inferior leads, poor R-wave progression. At the time of my evaluation she is feeling slightly better; stable hemodynamically and in no apparent distress. PAST MEDICAL HISTORY: Significant for hypertension, dyslipidemia. MEDICATIONS: As charted. ALLERGIES: NONE. FAMILY HISTORY: Negative for premature coronary artery disease. SOCIAL HISTORY: Denies smoking, ETOH abuse or drug abuse. REVIEW OF SYSTEMS: HEENT is unremarkable. CARDIAC: As described above. RESPIRATORY: As described above. GI: Negative. GENITOURINARY: Negative. ALLERGY/IMMUNOLOGY: Negative. SKIN: Negative. MUSCULOSKELETAL: Significant for arthritis. PSYCHOSOCIAL: Negative. ENDOCRINE: Negative. DERMATOLOGY: Negative. CONSTITUTIONAL: Negative. ONCOLOGICAL: Negative. CHRONIC DISEASE MANAGER: Negative. Rest of the system review is not relevant. PHYSICAL EXAMINATION: Patient is comfortable at rest. Vital signs are stable. There is no jugular venous distention. Carotid upstroke is diminished. There is no bruit. Chest exam reveals diminished air entry at the bases. Heart exam reveals first and second heart sounds. Systolic murmur at the apex. Abdomen is soft. Examination of extremities did not reveal any edema. Peripheral pulses are felt. LABS: Labs are pending at this time. We do not have any old EKG to compare. ASSESSMENT: Acute inferior wall myocardial infarction. PLAN: Patient will undergo emergent cardiac catheterization and will decide on further course of action based on the cath findings. MMODL / IJN: [id number] /
[2021-06-29] MEDS ORDERED: IOPAMIDOL-370 125ML BTL INJ ONE (10:24)
[2021-06-29 10:55] LABS: Glucose,Whole Blood 176 mg/dL (75-99)
[2021-06-29] MEDS ORDERED: MAG HYDROX/AL HYDROX/SIMETH 30 ML CUP PO PRN (10:57)
[2021-06-29] MEDS ORDERED: RX INFO: IV CONTRAST WAS GIVEN 1 EACH MISC MISCELLANE PRN (10:57)
[2021-06-29] MEDS ORDERED: ATROPINE SULFATE 0.1 MG/ML 10ML SYRINGE IV PRN (10:57)
[2021-06-29] MEDS ORDERED: ZOLPIDEM 5 MG TAB PO PRN (10:57)
[2021-06-29] MEDS ORDERED: SODIUM CHLORIDE 0.9% 1,000 ML in EMPTY BAG 1 BAG IV SCH (11:00)
--- NOTE | 2021-06-29 13:13 | P.PRCINT ---
Percutaneous Coronary Int. - Percutaneous Coronary Intervention Percutaneous Coronary Intervention: PROCEDURES PERFORMED: Left heart catheterization, bilateral coronary angiography, PCI of RCA with 3.0 x 12mm Xience HEATHER proximally, 3.0 x 23mm Xience HEATHER proximal to mid (post dilated with a 3.5NC balloon), 2.75 x 15mm Xience HEATHER mid to distal RCA, aspiration thombectomy with Penumbra, intracoronary nitro, Angioseal closure INDICATION: STEMI HISTORY: Patient is a pleasant 89 year old female who has been having off and on chest pain over the last day and was found to have inferior STEMI. She underwent diagnostic catheterization by my partner from a right femoral approach which showed 100% RCA stenosis and I was asked to perform PCI. PROCEDURE: After the risks, benefits and alternatives of the above mentioned procedure explained in detail with the patient, informed consent was obtained. Patient had already been taken to the catheterization lab and prepped and draped in usual fashion. There was some delay in the case as there was a malfunction of the Xray tube. A right femoral 6Fr sheath had already been placed. Heparin was given for ACT> 250. A 6Fr AL 0.75 guide was used to engage the RCA. A 0.014 BMW wire was advanced into the distal RCA. Predilation was performed with a 2.0 x 12mm balloon. There was extensive thrombus burden noted and therefore aspiration thrombectomy was performed using a Penumbra catheter however was unable to be advanced past the mid RCA portion. Next a 3.0 x 12mm balloon was used to perform angioplasty proximally. A 3.0 x 23mm Xience HEATHER was placed at the proximal to mid RCA. This was post dilated with a 3.5NC balloon. The AL 0.75 guide was too deep seated and therefore was changed out for a 6Fr FR4 guide catheter. With the help of a guidliner, a 2.75 x 12mm Xience HEATHER was placed at the mid to distal RCA lesion. Initially the proximal RCA lesion was felt more 60% however in repeat views appeared 75% stenosis and therefore an additional 3.0 x 12mm Xience HEATHER was placed at the proximal RCA. The wire was pulled. Final angiograms were taken. Pre intervention there was 100% stenosis and NICO 0 flow and post intervention there was 0% stenosis and NICO 3 flow with no dissection. The FR4 catheter was inserted into the left ventricle and measurements were made. Next left coronary angiography was performed with a 6Fr FL 4.0 catheter in various views. There was a very small circumflex concerning for possible anamolous circumflex vs super dominant PLV however given contrast threshold no further images were attempted. A right femoral angiogram showed a anatomy suitable for closure and therefore a 6Fr Angioseal was placed with hemostasis a chieved. The patient tolerated the procedure well. Patient was transported back to the post catheterization holding area in stable condition. Conscious Sedation: Patient was monitored under the direct supervision of vision of myself for conscious sedation using Versed and fentanyl for a total duration of 78 minutes HEMODYNAMICS: Ao: 128/78 LV: 127/4, LVEDP 19mmHg SELECTIVE CORONARY ARTERIOGRAPHY: LEFT MAIN: The left main is a moderate to large caliber vessel which is somewhat long and only gives rise to a very small caliber circumflex and the LAD which can be consistent with an anomolous circumflex. LEFT ANTERIOR DESCENDING CORONARY ARTERY: The LAD is a moderate caliber vessel with mild 10-20% proximal LAD stenosis and a more focal 75% LAD stenosis. LAD stenosis did not change with intracoronary nitroglycerin. LEFT CIRCUMFLEX CORONARY ARTERY: The left circumflex is very small with the possibility of an additional anamolous circumflex vs super dominant PLV covering circumflex territory. RIGHT CORONARY ARTERY: The right coronary artery is a large caliber vessel which gives off a PDA and PLV branch and is the dominant vessel. There is proximal RCA 75% stenosis followed by tandem 85% proximal to mid RCA stenoses. There is then a 100% mid to distal RCA stenosis. FINAL IMPRESSION: 1. CAD as described above with 100% RCA stenosis and 75% mid LAD stenosis. 2. S/p successful PCI of RCA with 3.0 x 12mm Xience HEATHER proximally, 3.0 x 23mm Xience HEATHER proximal to mid (post dilated with a 3.5NC balloon), 2.75 x 15mm Xience HEATHER mid to distal RCA 3. Very small caliber circumflex with the possibility of an anomolous circumflex vs circumflex territory covered by a super dominant PLV branch 4. Elevated left sided filling pressures PLAN: 1. Aggressive risk factor modification per most recent ACC/AHA guidelines. 2. Continue dual antiplatelets for 12 months.
[2021-06-29] MEDS ORDERED: ONDANSETRON 4 MG/2 ML VIAL IVP PRN (13:19)
[2021-06-29] MEDS ORDERED: FUROSEMIDE 10 MG/ML 4 ML VIAL IV STA (13:43)
--- NOTE | 2021-06-29 14:04 | CC ---
CARDIAC CATHETERIZATION REPORT INDICATION: Acute inferior wall myocardial infarction. PROCEDURE NOTE: After obtaining informed consent, left heart catheterization and coronary angiogram were performed via the right femoral artery using standard Judith catheters the patient tolerated the procedure well without any obvious immediate complications. The procedure was started in lab 3 and because of malfunctioning of the x-ray equipment, patient had to be moved to lab 4 when the procedure was completed. We wasted between 20 and 25 minutes because of instrument malfunction. FINDINGS: HEMODYNAMICS: Left ventricular end-diastolic pressure is 20 mm. There is no significant gradient across aortic valve. LEFT VENTRICULOGRAM: Left ventriculogram is not performed. ANGIOGRAPHIC DATA: RIGHT CORONARY ARTERY: Right coronary artery is a large dominant vessel. There is a 90% focal stenosis in the midportion and there is a total occlusion distally, probably related to plaque rupture and thrombus. LEFT MAIN CORONARY ARTERY is a normal-sized vessel and is free of stenosis. LEFT ANTERIOR DESCENDING CORONARY ARTERY: LAD shows a focal 70-80 percent stenosis in its mid portion. We could not visualize the circumflex coronary artery. 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 We will consider looking for the circ when we go back to do angioplasty of the LAD. CONCLUSIONS: 1. Acute of 90% proximal right coronary artery stenosis with total occlusion distally. 2. 70-80 percent stenosis involving mid LAD. PLAN: Patient will undergo angioplasty of the right coronary artery at this time. JUDD / BONNIE: [id number] /
--- NOTE | 2021-06-29 14:04 | LTR ---
DATE OF SERVICE: 06/29/2021 Dear Eliud: I performed cardiac catheterization on Danya Bennett. A detailed catheterization note is enclosed records. In brief, this pleasant 89-year-old lady comes to the hospital with acute inferior wall myocardial infarction. Underwent emergent cardiac catheterization and angioplasty of the right coronary artery. Thank you for giving us the privilege to participate in the care of this pleasant lady. Sincerely, JUDD / KRISTOPHERN: [id number] /
[2021-06-29 16:30] LABS: Appearance,Urine Clear (Clear); Bilirubin,Urine Negative (Negative); Blood,Urine Negative (Negative); Color,Urine Colorless; Glucose,Urine (UA) Negative (Negative); Ketones,Urine Negative (Negative); Leukocyte Esterase,Urine Negative (Negative); Nitrite,Urine Negative (Negative); Protein,Urine Negative (Negative); Specific Gravity,Urine 1.014 (1.001-1.035); Urobilinogen,Urine <2.0 mg/dL (<2.0)
--- NOTE | 2021-06-29 19:22 | P.HPIM ---
History of Present Illness H&P Date: 06/29/21 Chief Complaint: Chest pain This is a pleasant 89-year-old patient of Dr. Fernandez. Chronic stable medical conditions include hypertension, hypothyroid, osteoarthritis, urinary incontinence, arthritis in the back and hands. Last Sunday patient had gone to her family doctor and when she left she felt really weak and tired. Over the weekend she continued to feel tired decreased appetite just rundown. Yesterday patient started becoming short of breath and also noticed a heaviness in the chest like a dock sitting there. No radiation. Some worsening with activity. [place] also it could be a gas discomfort. Finally decided to come to the ER. Patient initial troponin was 26. Ruled in for an acute ST elevation SC. Dr. Evelyne Torrez did the diagnostic cardiac catheterization and lesions in the RCA and LAD. Dr. Reddy subsequently stent of the RCA. Postprocedure patient reported ICU. Tired. Patient is daughter Liana at the bedside. Review of systems: GEN.: Tired EYES: None HEENT: None NECK: None RESPIRATORY: As above CARDIOVASCULAR: As above GASTROINTESTINAL: None GENITOURINARY: Incontinence MUSCULOSKELETAL: Joint pains LYMPHATICS: None HEMATOLOGICAL: None PSYCHIATRY: None NEUROLOGICAL: None Past medical history to include: Hypertension, urinary incontinence, chronic diverticulosis, polyps, arthritis 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 No smoking alcohol occasionally. Family history: Congestive heart failure Physical examination: VITAL SIGNS: 97.8, 99, 18, 151/81, 96% room air GENERAL: BMI 25.6, reclining in bed, awake, tired. EYES: Pupils equal. Conjunctiva normal. HEENT: External appearance of nose and ears normal, oral cavity grossly normal. NECK: JVD not raised; masses not palpable. HEART: First and second heart sounds are normal; no edema. LUNGS: Respiratory rate normal; clear to auscultation. ABDOMEN: Soft, nontender, liver spleen not palpable, no masses palpable. PSYCH: Alert and oriented x3; mood and affect normal. MUSCULOSKELETAL:No Clubbing/cyanosis;muscles-grossly intact. Evidence of OA NEUROLOGICAL: Cranial nerves grossly intact; no facial asymmetry, power and sensation grossly intact. LYMPHATICS: No lymph nodes palpable in the axilla and neck INVESTIGATIONS, reviewed in the clinical context: White count 15.6 hemoglobin 16.2 platelets 254 sodium 138 potassium 4.6 BUN 21 creatinine 1.06 total bilirubin 1.5 AST 241 ALT 47 Troponin I 26.2, 161 Coronavirus [PCR]: Not detected Chest x-ray film personally reviewed by me-venous prominence. Mild cardiomegaly EKG tracing personally reviewed by me-ST elevation inferior leads and ST depression in lateral leads sinus rhythm, intraventricular block Assessment and plan: -Acute inferior wall myocardial infarction Cardiac catheterization showed lesions in RCA and LAD. Stenting done to RCA Aspirin 81 mg daily, Lipitor 40 mg daily at bedtime, Toprol-XL 12.5 mg day, relevant data 90 mg twice a day -Acute congestive heart failure exacerbation from acute myocardial infarction. Patient received 1 dose of IV Lasix. 2-D echocardiogram. -Essential hypertension Norvasc 10 mg a day, Toprol-XL 12.5 mg a day -Hypothyroid Synthroid 50 g a day -Acute UTI with cystitis Continue doxycycline 100 mg twice a day. Check UA and culture -Acute hepatitis, possible ischemic from low blood pressure Repeat LFTs. Especially in view of Lipitor. -Hypomagnesemia Replace magnesium -Primary osteoarthritis multiple joints Tylenol as needed Aspirin, Proventil, Toprol-XL, Lipitor, doxycycline. Telemetry. 2-D echocardiogram. Care was discussed with the patient and the daughter the bedside. Questions answered. Given the complexity and severity of patient's condition expect the patient to be in the hospital at least for 2 overnights Past Medical History Past Medical History: Diabetes Mellitus, Hypertension, Osteoarthritis (OA), Thyroid Disorder Additional Past Medical History / Comment(s): Currently being treated for UTI/abx, diabetes/diet controlled/"pre", arthritis R hand and in back, back pain, hypothyroid, diverticular disease/benign colon polyp, urinary incontinence. History of Any Multi-Drug Resistant Organisms: None Reported Past Surgical History: Adenoidectomy, Cholecystectomy, Heart Catheterization With Stent, Orthopedic Surgery, Tonsillectomy Additional Past Surgical History / Comment(s): 06/29/21 PCI with 2 stents to RCA, R rotator cuff repair, L carpal tunnel release, R foot bone spur removed, R thumb trigger finger surgery, colonoscopies/polypectomies, D&Cs, bilateral cataract removals. Past Anesthesia/Blood Transfusion Reactions: No Reported Reaction Date of Last Stent Placement:: 06/29/21 Smoking Status: Former smoker - Past Family History Father Additional Family Medical History / Comment(s): Father had back surgery Mother Family Medical History: Congestive Heart Failure (CHF) Additional Family Medical History / Comment(s): Mother from chf. Medications and Allergies Home Medications Medication Instructions Recorded Confirmed Type Levothyroxine Sodium [Synthroid] 50 mcg PO QAM 08/26/18 06/29/21 History Niacin 1 tab PO DAILY 08/26/18 06/29/21 History Doxycycline Hyclate 100 mg PO BID 06/29/21 06/29/21 History Multivitamins, Thera [Multivitamin 1 tab PO DAILY 06/29/21 06/29/21 History (formulary)] Nelson-3 Fatty Acids/Fish Oil [Fish 1 cap PO DAILY 06/29/21 06/29/21 History Oil 1,000 mg Softgel] amLODIPine [Norvasc] 10 mg PO DAILY 06/29/21 06/29/21 History Allergies Allergy/AdvReac Type Severity Reaction Status Date / Time acetaminophen [From Lortab] AdvReac Rash/Hives Verified 06/29/21 08:08 amoxicillin AdvReac Nausea & Verified 06/29/21 08:08 Vomiting ciprofloxacin AdvReac Rash/Hives Verified 06/29/21 08:08 hydrocodone [From Lortab] AdvReac Rash/Hives Verified 06/29/21 08:08 NSAIDS (Non-Steroidal AdvReac KIDNEY Verified 06/29/21 08:08 Anti-Inflamma PROBLEMS Physical Exam Vitals: Vital Signs Temp Pulse Resp BP Pulse Ox 06/29/21 08:44 86 16 153/81 95 06/29/21 08:08 97.8 F 99 18 151/81 96 Intake and Output 06/28/21 06/29/21 06/29/21 22:59 06:59 14:59 Intake Total 300 Balance 300 Intake: IV 300 Other: Weight 63.503 kg Results CBC & Chem 7: 06/29/21 08:36 06/29/21 08:36 Labs: Abnormal Lab Results - Last 24 Hours (Table) 06/29/21 06/29/21 06/29/21 Range/Units 08:36 08:36 08:36 WBC 15.6 H (3.8-10.6) k/uL Hgb 16.2 H (11.4-16.0) gm/dL Hct 47.7 H (34.0-46.0) % Neutrophils # 12.1 H (1.3-7.7) k/uL D-Dimer 0.89 H (<0.60) mg/L FEU Chloride 108 H (98-107) mmol/L Carbon Dioxide 19 L (22-30) mmol/L BUN 21 H (7-17) mg/dL Creatinine 1.06 H (0.52-1.04) mg/dL Glucose 204 H (74-99) mg/dL POC Glucose (mg/dL) (75-99) mg/dL Calcium 10.5 H (8.4-10.2) mg/dL Magnesium 1.4 L (1.6-2.3) mg/dL Total Bilirubin 1.5 H (0.2-1.3) mg/dL AST 241 H (14-36) U/L ALT 47 H (4-34) U/L Troponin I (0.000-0.034) ng/mL 06/29/21 06/29/21 Range/Units 08:36 10:53 WBC (3.8-10.6) k/uL Hgb (11.4-16.0) gm/dL Hct (34.0-46.0) % Neutrophils # (1.3-7.7) k/uL D-Dimer (<0.60) mg/L FEU Chloride (98-107) mmol/L Carbon Dioxide (22-30) mmol/L BUN (7-17) mg/dL Creatinine (0.52-1.04) mg/dL Glucose (74-99) mg/dL POC Glucose (mg/dL) 176 H (75-99) mg/dL Calcium (8.4-10.2) mg/dL Magnesium (1.6-2.3) mg/dL Total Bilirubin (0.2-1.3) mg/dL AST (14-36) U/L ALT (4-34) U/L Troponin I 26.200 H* (0.000-0.034) ng/mL Thrombosis Risk Factor Assmnt - Choose All That Apply Any of the Below Risk Factors Present?: Yes Each Factor Represents 1 point: Acute SC, Medical pt on bed rest Other Risk Factors: Yes Each Risk Factor Represents 2 Points: Patient confined to bed Each Risk Factor Represents 3 Points: Age 75 years or older Other congenital or acquired thrombophilia - If yes, enter type in comment: No Thrombosis Risk Factor Assessment Total Risk Factor Score: 7 Thrombosis Risk Factor Assessment Level: High Risk
[2021-06-29] MEDS: ATORVASTATIN 40 MG TAB PO SCH (20:14)
[2021-06-29] MEDS: DOXYCYCLINE 100 MG CAP PO SCH (20:14)
[2021-06-29] MEDS: TICAGRELOR 90 MG TAB PO SCH (20:14)
[2021-06-30] MEDS: LEVOTHYROXINE 50 MCG TAB PO SCH (05:29)
[2021-06-30] MEDS: ASPIRIN 81 MG PO SCH (08:37)
[2021-06-30] MEDS: TICAGRELOR 90 MG TAB PO SCH (08:37)
[2021-06-30] MEDS: MULTIVITAMINS, THERA 1 EACH TAB PO SCH (08:37)
[2021-06-30] MEDS: METOPROLOL SUCCINATE (ER) 25 MG TAB.ER.24H PO SCH (08:38)
[2021-06-30 08:45] LABS: Basophils % (A) 0 %; Eosinophils % (A) 0 %; HCT 43.5 % (34.0-46.0); HGB 14.2 gm/dL (11.4-16.0); Lymphocytes # (A) 2.5 k/uL (1.0-4.8); Lymphocytes % (A) 17 %; MCH 30.5 pg (25.0-35.0); MCHC 32.7 g/dL (31.0-37.0); MCV 93.2 fL (80.0-100.0); Mean Platelet Volume 10.2; Monocytes # (A) 0.8 k/uL (0-1.0); Monocytes % (A) 5 %; Neutrophils # (A) 11.6 k/uL (1.3-7.7); Neutrophils % (A) 77 %; Platelet Count 210 k/uL (150-450); RBC 4.67 m/uL (3.80-5.40); RDW 14.4 % (11.5-15.5); WBC 15.2 k/uL (3.8-10.6)
[2021-06-30 08:51] LABS: ALT 61 U/L (4-34); AST 294 U/L (14-36); African American GFR (CKD) 48 (>60 ml/min/1.73 sqM); Albumin 3.5 g/dL (3.5-5.0); Alkaline Phosphatase 77 U/L (38-126); Anion Gap 8 mmol/L; Blood Urea Nitrogen 19 mg/dL (7-17); Calcium 9.3 mg/dL (8.4-10.2); Carbon Dioxide 27 mmol/L (22-30); Chloride 101 mmol/L (98-107); Glucose 201 mg/dL (74-99); Non-African American GFR(CKD) 42 (>60 ml/min/1.73 sqM); Potassium 3.6 mmol/L (3.5-5.1); Sodium 136 mmol/L (137-145); Total Bilirubin 2.4 mg/dL (0.2-1.3); Total Protein 6.9 g/dL (6.3-8.2)
[2021-06-30] MEDS ORDERED: NIACIN 100 MG PO SCH (09:00)
[2021-06-30] MEDS ORDERED: amLODIPine 10 MG TAB PO SCH (09:00)
[2021-06-30] MEDS ORDERED: NON FORMULARY DRUG (Omega-3 Fatty Acids/Fish Oil [Fish Oil 1,000 Mg Softgel] 1 EACH Capsul PO SCH (09:00)
[2021-06-30] MEDS ORDERED: ASPIRIN 325 MG TAB PO SCH (09:00)
[2021-06-30] MEDS: DOXYCYCLINE 100 MG CAP PO SCH (09:17)
--- NOTE | 2021-06-30 10:05 | ECHOF ---
Referral Reason:Acute NE MEASUREMENTS -------- HEIGHT: 157.5 cm WEIGHT: 63.5 kg BP: 96/58 IVSd: 1.0 cm (0.6 - 1.1) LVIDd: 3.8 cm (3.9 - 5.3) LVPWd: 0.9 cm (0.6 - 1.1) IVSs: 0.9 cm LVIDs: 3.1 cm LVPWs: 0.8 cm LAESV Index (A-L): 20.12 ml/m Ao Diam: 3.2 cm (2.0 - 3.7) AV Cusp: 1.8 cm (1.5 - 2.6) LA Diam: 2.0 cm (2.7 - 3.8) MV EXCURSION: 13.883 mm (> 18.000) MV EF SLOPE: 53 mm/s (70 - 150) EPSS: 0.6 cm MV E Trung: 1.05 m/s MV DecT: 90 ms MV A Trung: 1.15 m/s MV E/A Ratio: 0.91 RAP: 5.00 mmHg RVSP: 33.03 mmHg FINDINGS -------- This was a technically good study. The left ventricular size is normal. Left ventricular wall thickness is normal. Overall left vent ricular systolic function is moderately impaired with, an EF between 35 - 40 %. Normal LAP Grade 1 Diastolic Dysfunction. Basal lateral LV wall motion is hypokinetic. Basal inferior LV wall motio n is hypokinetic. Basal inferoseptal LV wall motion is hypokinetic. Mid lateral LV wall motion is hypokinetic. Mid inferior LV wall motion is hypokinetic. Mid inferoseptal LV wall motion is hypokinetic. Apical inferior LV wall motion is hypokinetic. Inferiorlateral Hypokinesis The right ventricle is normal in size. The left atrial size is normal. Normal LA size by volume 22+/-6 ml/m2. The right atrial size is normal. Aortic valve is trileaflet and is mildly thickened. The mitral valve is normal. Iblxviul-sn-yrkeio mitral regurgitation is present. The tricuspid valve appears structurally normal. Mild tricuspid regurgitation present. Right vent ricular systolic pressure is normal at < 35 mmHg. There is no pulmonic regurgitation present. The aortic root size is normal. IVC Not well visulized. There is no pericardial effusion. CONCLUSIONS -------- 1. The left ventricular size is normal. 2. Left ventricular wall thickness is normal. 3. Overall left ventricular systolic function is moderately impaired with, an EF between 35 - 40 %. 4. Normal LAP Grade 1 Diastolic Dysfunction. 5. Basal lateral LV wall motion is hypokinetic. 6. Basal inferior LV wall motion is hypokinetic. 7. Basal inferoseptal LV wall motion is hypokinetic. 8. Mid lateral LV wall motion is hypokinetic. 9. Mid inferior LV wall motion is hypokinetic. 10. Mid inferoseptal LV wall motion is hypokinetic. 11. Apical inferior LV wall motion is hypokinetic. 12. Inferiorlateral Hypokinesis 13. Aortic valve is trileaflet and is mildly thickened. 14. Edtfhfdw-jq-ziaszs mitral regurgitation is present. 15. Mild tricuspid regurgitation present. 16. There is no pericardial effusion. MANAGER BALANCE: Sulma Rivers RDCS
[2021-06-30] MEDS ORDERED: NITROGLYCERIN OINT 1 INCH/GM PACKET TOPICAL STA (11:06)
[2021-06-30] MEDS ORDERED: HEPARIN SODIUM 1,000 UN/ML (10ML VL) IV PRN (11:10)
[2021-06-30] MEDS ORDERED: HEPARIN SODIUM 1,000 UN/ML (10ML VL) IV ONE (11:10)
[2021-06-30] MEDS ORDERED: HEPARIN SOD,PORK IN 0.45% NACL 25,000 UNIT in 0.45% NACL 1 250ML.BAG IV SCH (11:15)
[2021-06-30] MEDS: FUROSEMIDE 40 MG TAB PO SCH ×2 (13:11→16:04)
[2021-06-30 13:17] VITALS: BMI 25.6
--- NOTE | 2021-06-30 14:25 | P.PN ---
Subjective This is an 89-year-old female past medical history of pre-diabetes, hypertension, dyslipidemia. 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 Patient presented to the hospital with chest pain and was found to have inferior STEMI. She underwent diagnostic catheterization by Dr. Bonilla from a right femoral approach which showed 100% RCA stenosis, mid LAD with focal 7080% stenosis, elevated left sided filling pressures. Patient underwent successful PCI of RCA with 3 stents. Echocardiogram revealed an EF of 3540 percent, with basal lateral, inferior, inferoseptal, mid lateral, inferior and apical inferior wall motion abnormalities, moderate to severe mitral regurgitation. Her troponin was elevated to 188. Patient seen at bedside, no acute distress. She does complain of some mild shortness of breath. She did have an episode of chest pain 4/10 left sided. Relieved by supplemental oxygen. EKG this morning revealed sinus rhythm with improved ST elevation in the inferior leads. Labs reviewed, sodium 136, potassium 3.6, BUN 19, serum creatinine 1.1, WBC 15.2, hemoglobin 14.2. She is currently maintained on aspirin 81 mg daily, atorvastatin 40 mg nightly, Brilinta 90 mg twice a day, metoprolol succinate 12.5 mg daily GENERAL: In no acute distress. NECK: Supple without JVD or thyromegaly. LUNGS: Breath sounds diminished to auscultation bilaterally. Respiration equal and unlabored. No wheezes, rales or rhonchi. HEART: Regular rate and rhythm. Systolic ejection murmur at apex noted. S1 and S2 heard. EXTREMITIES: Normal range of motion, no edema. No clubbing or cyanosis. Peripheral pulses intact. ASSESSMENT Acute inferior wall STEMI Status post PCI to mid RCA on 06/29/21 History of hypertension Dyslipidemia Ischemic cardiomyopathy EF 35-40% Elevated LFTs PLAN Start Lasix Start nitropaste TID Continue supplemental oxygen Patient's Brilinta is not covered and will cost $500/month. We will switch patient to Plavix Continue aspirin and statin We will monitor patient's BP and start ACEI Monitor renal function, electrolytes and LFTs Continue cardiac telemetry Further recommendations based on clinical course Nurse Practitioner note has been reviewed, I agree with a documented findings and plan of care. Patient was seen and examined. Objective - Vital Signs Vital signs: Vital Signs Temp 98.3 F 06/30/21 08:00 Pulse 97 06/30/21 08:00 Resp 16 01/20/22 08:20 BP 118/67 06/30/21 08:00 Pulse Ox 96 06/30/21 12:12 Intake & Output 06/29/21 06/30/21 06/30/21 18:59 06:59 18:59 Intake Total 675 300 180 Output Total 250 Balance 425 300 180 Weight 63.503 kg 63.503 kg Intake: IV 300 Intake, IV Titration 375 Amount Sodium Chloride 0.9% 1, 375 000 ml In Empty Bag 1 bag @ 80 mls/hr IV .[id number] [facility] Rx#:[id number] Oral 300 180 Output: Urine 250 Other: Voiding Method Bedpan Toilet Toilet Diaper Diaper Diaper # Voids 1 1 0 - Labs CBC & Chem 7: 06/30/21 07:49 06/30/21 07:49 Labs: Abnormal Lab Results - Last 24 Hours (Table) 06/29/21 06/30/21 06/30/21 Range/Units 14:23 07:49 07:49 WBC 15.2 H (3.8-10.6) k/uL Neutrophils # 11.6 H (1.3-7.7) k/uL Sodium 136 L (137-145) mmol/L BUN 19 H (7-17) mg/dL Creatinine 1.17 H (0.52-1.04) mg/dL Glucose 201 H (74-99) mg/dL Total Bilirubin 2.4 H (0.2-1.3) mg/dL AST 294 H (14-36) U/L ALT 61 H (4-34) U/L Troponin I 188.000 H* (0.000-0.034) ng/mL
--- NOTE | 2021-06-30 14:56 | P.PN ---
Progress Note - Text Progress Note Date: 06/30/21 Chief Complaint: Chest pain This is a pleasant 89-year-old patient of Dr. Fernandez. Chronic stable medical conditions include hypertension, hypothyroid, osteoarthritis, urinary incontinence, arthritis in the back and hands. Last Sunday patient had gone to her family doctor and when she left she felt really weak and tired. Over the weekend she continued to feel tired decreased appetite just rundown. Yesterday patient started becoming short of breath and also noticed a heaviness in the chest like a dock sitting there. No radiation. Some worsening with activity. [place] also it could be a gas discomfort. Finally decided to come to the ER. Patient initial troponin was 26. Ruled in for an acute ST elevation [place]. Dr. Evelyne Torrez did the diagnostic cardiac catheterization and lesions in the RCA and LAD. Dr. Reddy subsequently stent of the RCA. Postprocedure patient reported ICU. Tired. Patient is daughter Liana at the bedside. June 30: Laying in bed. A bit tired. Some shortness of breath. On oxygen. No chest pain. Encouraged to be out of bed. UA negative. Stopped antibiotic. Review of systems: Was done for constitutional, cardiovascular, GI, pulmonary. relevant finding as above Active Medications Al Hydroxide/Mg Hydroxide (Mag Hydrox/Al Hydrox/Simeth 30 Ml Cup) 30 ml PO Q4HR PRN PRN Reason: Heartburn Aspirin (Aspirin 81 Mg) 81 mg PO DAILY [facility] Last Admin: 06/30/21 08:37 Dose: 81 mg Documented by: Atorvastatin Calcium (Atorvastatin 40 Mg Tab) 40 mg PO HS [facility] Last Admin: 06/29/21 20:14 Dose: 40 mg Documented by: Atropine Sulfate (Atropine Sulfate 0.1 Mg/Ml 10ml Syringe) 0.5 mg IV ONCE PRN PRN Reason: Symptomatic Bradycardia Clopidogrel Bisulfate (Clopidogrel 75 Mg Tab) 75 mg PO DAILY [facility] Furosemide (Furosemide 40 Mg Tab) 40 mg PO BID@0900,1600 [facility] Last Admin: 06/30/21 13:11 Dose: 40 mg Documented by: Levothyroxine Sodium (Levothyroxine 50 Mcg Tab) 50 mcg PO QAM@0630 [facility] Last Admin: 06/30/21 05:29 Dose: 50 mcg Documented by: Metoprolol Succinate (Metoprolol Succinate (Er) 25 Mg Tab.Er.24h) 12.5 mg PO DAILY [facility] Last Admin: 06/30/21 08:38 Dose: 12.5 mg Documented by: Miscellaneous Information (Rx Info: Iv Contrast Was Given 1 Each Misc) 1 each MISCELLANE DAILY PRN PRN Reason: Per Protocol Stop: 07/01/21 10:58 Multivitamins (Multivitamins, Thera 1 Each Tab) 1 each PO DAILY [facility] Last Admin: 06/30/21 08:37 Dose: 1 each Documented by: Nitroglycerin (Nitroglycerin Sl Tabs 0.4 Mg Tab) 0.4 mg SUBLINGUAL Q5M PRN PRN Reason: Chest Pain Last Admin: 06/29/21 13:50 Dose: 0.4 mg Documented by: Nitroglycerin (Nitroglycerin Oint 1 Inch/Gm Packet) 1 inch TOPICAL Q8HR [facility] Ondansetron HCl (Ondansetron 4 Mg/2 Ml Vial) 4 mg IVP Q8HR PRN PRN Reason: Nausea And Vomiting Last Admin: 06/29/21 13:45 Dose: 4 mg Documented by: Zolpidem Tartrate (Zolpidem 5 Mg Tab) 5 mg PO HS PRN PRN Reason: Insomnia Past medical history to include: Hypertension, urinary incontinence, chronic diverticulosis, polyps, arthritis 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 No smoking alcohol occasionally. Family history: Congestive heart failure Physical examination: VITAL SIGNS: 98.1, 96, 16, 120/70, 96% on 2 L GENERAL: reclining in bed, awake, tired. EYES: Pupils equal. Conjunctiva normal. HEENT: External appearance of nose and ears normal, oral cavity grossly normal. NECK: JVD not raised; masses not palpable. HEART: First and second heart sounds are normal; no edema. LUNGS: Respiratory rate normal; clear to auscultation. ABDOMEN: Soft, nontender, liver spleen not palpable, no masses palpable. PSYCH: Alert and oriented x3; mood and affect normal. MUSCULOSKELETAL:No Clubbing/cyanosis;muscles-grossly intact. Evidence of OA NEUROLOGICAL: Cranial nerves grossly intact; no facial asymmetry, power and sensation grossly intact. INVESTIGATIONS, reviewed in the clinical context: June 30: White count 15.2 hemoglobin 14.2 potassium 3.6 BUN 19 creatinine 1.17 total bilirubin 2.4 AST 294 ALT 61 2-D echocardiogram: Multiple wall motion up to 90. EF 35-40%. Moderate to severe mitral regurgitation. UA: Negative White count 15.6 hemoglobin 16.2 platelets 254 sodium 138 potassium 4.6 BUN 21 creatinine 1.06 total bilirubin 1.5 AST 241 ALT 47 Troponin I 26.2, 161, 188 Coronavirus [PCR]: Not detected Chest x-ray film personally reviewed by me-venous prominence. Mild cardiomegaly EKG tracing personally reviewed by me-ST elevation inferior leads and ST depression in lateral leads sinus rhythm, intraventricular block Assessment and plan: -Acute inferior wall myocardial infarction Cardiac catheterization showed lesions in RCA and LAD. Stenting done to RCA Aspirin 81 mg daily, Lipitor 40 mg daily at bedtime, Toprol-XL 12.5 mg day, Brilinta 90 mg twice a day -Acute congestive heart failure exacerbation from acute myocardial infarction. Systolic dysfunction EF 35-40% Lasix 40 mg twice a day. Toprol-XL 12.5 mg. -Essential hypertension Norvasc -discontinued, Toprol-XL 12.5 mg a day -Hypothyroid Synthroid 50 g a day -Acute UTI with cystitis Continue doxycycline 100 mg twice a day. Check UA and culture. Repeat UA negative. Doxycycline discontinued -Acute hepatitis, possible ischemic from low blood pressure: Worsening Repeat LFTs. Patient on Lipitor. -Hypomagnesemia Replace magnesium -Primary osteoarthritis multiple joints Tylenol as needed Aspirin, Proventil, Toprol-XL, Lipitor, doxycycline. Lasix 40 mg by mouth twice a day added. LFT slowly going up. Repeat again tomorrow. Amlodipine discontinued. Activity as tolerated. Liver ultrasound
[2021-06-30] MEDS: NITROGLYCERIN OINT 1 INCH/GM PACKET TOPICAL SCH (16:04)
[2021-06-30] MEDS: MAGNESIUM OXIDE 400 MG TAB PO SCH ×2 (16:04→20:19)
[2021-06-30 16:28] LABS: Chol/HDL Ratio 3.19 Ratio; LDL Cholesterol,Calculated 50.4 mg/dL (0.0-131.0)
[2021-06-30] MEDS: ATORVASTATIN 40 MG TAB PO SCH (20:19)
[2021-07-01] MEDS: NITROGLYCERIN OINT 1 INCH/GM PACKET TOPICAL SCH ×4 (00:06→23:26)
[2021-07-01] MEDS: LEVOTHYROXINE 50 MCG TAB PO SCH (05:31)
[2021-07-01 07:05] LABS: Basophils % (A) 0 %; Eosinophils # (A) 0.1 k/uL (0-0.7); Eosinophils % (A) 1 %; HCT 41.2 % (34.0-46.0); HGB 13.6 gm/dL (11.4-16.0); Lymphocytes # (A) 2.5 k/uL (1.0-4.8); Lymphocytes % (A) 18 %; MCH 30.4 pg (25.0-35.0); Monocytes # (A) 0.7 k/uL (0-1.0); Monocytes % (A) 5 %; Neutrophils # (A) 10.5 k/uL (1.3-7.7); Neutrophils % (A) 75 %; Platelet Count 206 k/uL (150-450); RBC 4.47 m/uL (3.80-5.40); RDW 14.7 % (11.5-15.5)
[2021-07-01 07:20] LABS: Albumin 3.2 g/dL (3.5-5.0); Calcium 9.5 mg/dL (8.4-10.2); Magnesium 1.4 mg/dL (1.6-2.3); Potassium 3.2 mmol/L (3.5-5.1); Total Bilirubin 2.3 mg/dL (0.2-1.3); Total Protein 6.5 g/dL (6.3-8.2)
[2021-07-01] MEDS: ASPIRIN 81 MG PO SCH (07:45)
[2021-07-01] MEDS: MAGNESIUM OXIDE 400 MG TAB PO SCH ×2 (07:46→20:41)
[2021-07-01] MEDS: CLOPIDOGREL 75 MG TAB PO SCH (07:46)
[2021-07-01] MEDS: FUROSEMIDE 40 MG TAB PO SCH (07:46)
[2021-07-01] MEDS: METOPROLOL SUCCINATE (ER) 25 MG TAB.ER.24H PO SCH (07:46)
[2021-07-01] MEDS: MULTIVITAMINS, THERA 1 EACH TAB PO SCH (07:46)
--- NOTE | 2021-07-01 08:11 | US ---
EXAMINATION TYPE: US abdomen limited DATE OF EXAM: 07/01/2021 COMPARISON: NONE CLINICAL HISTORY: LFTs going up. abn labs, no symptoms, cholecystectomy EXAM MEASUREMENTS: Liver Length: 16.2 cm Gallbladder Wall: Surgically absent CBD: 1.0 cm Right Kidney: 7.6 x 3.6 x 4.2 cm Pancreas: Obscured by bowel gas Liver: Increased attenuation Gallbladder: Surgically absent Evidence for sonographic Contreras's sign: no CBD: Upper limits of normal post nitin Right Kidney: small in size Suboptimal evaluation of pancreas on initial images, visualized portions are slightly heterogeneous w ithout mass or ductal dilatation. Visualized liver is heterogeneously hyperechoic. Evaluation for foc al masses suboptimal due to the heterogeneity. Gallbladder is surgically absent. No right-sided hydro nephrosis. Some cortical thinning is present consistent with chronic medical renal disease. IMPRESSION: Suboptimal study. Heterogeneous hyperechoic appearance of liver is consistent with diffus e fatty infiltration and/or underlying hepatocellular disease.
[2021-07-01] MEDS ORDERED: POTASSIUM CHLORIDE ER 20 MEQ TAB.ER PO STA (10:54)
--- NOTE | 2021-07-01 12:20 | P.PN ---
Subjective Progress Note Date: 07/01/21 This is an 89-year-old female past medical history of pre-diabetes, hypertension, dyslipidemia. 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 Patient presented to the hospital with chest pain and was found to have inferior STEMI. She underwent diagnostic catheterization by Dr. Bonilla from a right femoral appr [facility] which showed 100% RCA stenosis, mid LAD with focal 7080% stenosis, elevated left sided filling pressures. Patient underwent successful PCI of RCA with 3 stents. Echocardiogram revealed an EF of 3540 percent, with basal lateral, inferior, inferoseptal, mid lateral, inferior and apical inferior wall motion abnormalities, moderate to severe mitral regurgitation. Patient is examined resting in bed comfortably, with no signs of acute distress. Patient complains she is doing much better today. She denies chest pain, palpitations, dyspnea, dizziness, or syncope. Patient remains on 2 L nasal cannula while in bed. States she has not been using oxygen to get up go the bathroom and denies shortness of breath with activity. Patient is currently maintained on aspirin, atorvastatin, [place] test, and metoprolol. Will add an REGINA inhibitor. Patient is also on Lasix twice a day, will decrease to once a day. An supplement potassium. Will continue to monitor creatinine, today creatinine is 1.35. Vital signs as followed, blood pressure 113/61, heart rate 90, respirations 22, 92% on nasal cannula, afebrile. Labs reviewed, hemoglobin 13.6, sodium 134, potassium 3.2, BUN 23, creatinine 1.35, AST 120, ALT 41. , Cholesterol 106, LDL 50, HDL 33, triglycerides 112. Objective - Vital Signs Vital signs: Vital Signs Temp 98.1 F 07/01/21 08:00 Pulse 90 07/01/21 08:00 Resp 22 07/01/21 08:00 BP 113/61 07/01/21 08:00 Pulse Ox 92 L 07/01/21 08:00 Intake & Output 06/30/21 07/01/21 07/01/21 18:59 06:59 18:59 Intake Total 536 Output Total 400 250 Balance 136 -250 Weight 63.503 kg 64.6 kg Intake: Oral 536 Output: Urine 400 250 Other: Voiding Method Toilet Toilet Diaper Diaper # Voids 0 1 - Exam PHYSICAL EXAM: VITAL SIGNS: Reviewed. GENERAL: Well-developed in no acute distress. HEENT: Head is normocephalic. Pupils are equal, round. Sclerae anicteric. Mucous membranes of the mouth are moist. NECK: Supple. No JVD or thyromegaly RESPIRATORY: Respirations even and unlabored. Lungs diminished to auscultation bilaterally. CARDIO: Regular rate and rhythm. S1 and S2 heard. No murmur or gallops. EXTREMITIES: Normal range of motion. No clubbing or cyanosis. Peripheral pulses intact. Negative for bilateral lower extremity edema NEURO: Orientated to person, time, mood is appropriate - Labs CBC & Chem 7: 07/01/21 06:22 07/01/21 06:22 Labs: Abnormal Lab Results - Last 24 Hours (Table) 06/30/21 07/01/21 07/01/21 Range/Units 07:49 06:22 06:22 WBC 14.0 H (3.8-10.6) k/uL Neutrophils # 10.5 H (1.3-7.7) k/uL Sodium 134 L (137-145) mmol/L Potassium 3.2 L (3.5-5.1) mmol/L BUN 23 H (7-17) mg/dL Creatinine 1.35 H (0.52-1.04) mg/dL Glucose 164 H (74-99) mg/dL Magnesium 1.4 L (1.6-2.3) mg/dL Total Bilirubin 2.3 H (0.2-1.3) mg/dL AST 120 H (14-36) U/L ALT 41 H (4-34) U/L Albumin 3.2 L (3.5-5.0) g/dL HDL Cholesterol 33.20 L (40.00-60.00) mg/dL Assessment and Plan Assessment: Acute inferior wall STEMI Status post PCI to mid RCA x3 on 06/29/21 History of hypertension Dyslipidemia Ischemic cardiomyopathy EF 35-40% Elevated LFTs Plan: Decrease Lasix to once daily Start lisinopril 5 mg, continue to monitor creatinine Electrolytes in the morning Septic potassium with 40meq 1 Continue with nitropaste TID Continue supplemental oxygen, titrate off as tolerated Continue with Plavix Continue aspirin and statin Continue with beta jerry We will monitor patient's BP Monitor renal function, electrolytes and LFTs Continue cardiac telemetry Further recommendations based on clinical course The above impression and plan of care have been discussed and directed by the signing physician. Angie Alexander, nurse practitioner, acting as scribe for signing physician.
[2021-07-01] MEDS: lisinopriL 5 MG TAB PO SCH (14:28)
--- NOTE | 2021-07-01 15:35 | P.PN ---
Progress Note - Text Progress Note Date: 07/01/21 Chief Complaint: Chest pain This is a pleasant 89-year-old patient of Dr. Fernandez. Chronic stable medical conditions include hypertension, hypothyroid, osteoarthritis, urinary incontinence, arthritis in the back and hands. Last Sunday patient had gone to her family doctor and when she left she felt really weak and tired. Over the weekend she continued to feel tired decreased appetite just rundown. Yesterday patient started becoming short of breath and also noticed a heaviness in the chest like a dock sitting there. No radiation. Some worsening with activity. [place] also it could be a gas discomfort. Finally decided to come to the ER. Patient initial troponin was 26. Ruled in for an acute ST elevation [facility]. Dr. Evelyne Torrez did the diagnostic cardiac catheterization and lesions in the RCA and LAD. Dr. Reddy subsequently stent of the RCA. Postprocedure patient reported ICU. Tired. Patient is daughter Liana at the bedside. June 30: Laying in bed. A bit tired. Some shortness of breath. On oxygen. No chest pain. Encouraged to be out of bed. UA negative. Stopped antibiotic. July 01: Reclining in bed, tired. A bit short of breath. 2 L of oxygen. Did eat some. No chest pain. Some increase in creatinine. Cardiology did decrease to Lasix. LFTs slowly coming down. It has been up to the bathroom Review of systems: Was done for constitutional, cardiovascular, GI, pulmonary. relevant finding as above Active Medications Al Hydroxide/Mg Hydroxide (Mag Hydrox/Al Hydrox/Simeth 30 Ml Cup) 30 ml PO Q4HR PRN PRN Reason: Heartburn Aspirin (Aspirin 81 Mg) 81 mg PO DAILY [facility] Last Admin: 07/01/21 07:45 Dose: 81 mg Documented by: Atorvastatin Calcium (Atorvastatin 40 Mg Tab) 40 mg PO HS [facility] Last Admin: 06/30/21 20:19 Dose: 40 mg Documented by: Atropine Sulfate (Atropine Sulfate 0.1 Mg/Ml 10ml Syringe) 0.5 mg IV ONCE PRN PRN Reason: Symptomatic Bradycardia Clopidogrel Bisulfate (Clopidogrel 75 Mg Tab) 75 mg PO DAILY [facility] Last Admin: 07/01/21 07:46 Dose: 75 mg Documented by: Furosemide (Furosemide 10 Mg/Ml 4 Ml Vial) 40 mg IV DAILY [facility] Levothyroxine Sodium (Levothyroxine 50 Mcg Tab) 50 mcg PO QAM@0630 [facility] Last Admin: 07/01/21 05:31 Dose: 50 mcg Documented by: Lisinopril (Lisinopril 5 Mg Tab) 5 mg PO DAILY [facility] Last Admin: 07/01/21 14:28 Dose: 5 mg Documented by: Magnesium Oxide (Magnesium Oxide 400 Mg Tab) 400 mg PO BID [facility] Last Admin: 07/01/21 07:46 Dose: 400 mg Documented by: Metoprolol Succinate (Metoprolol Succinate (Er) 25 Mg Tab.Er.24h) 12.5 mg PO DAILY [facility] Last Admin: 07/01/21 07:46 Dose: 12.5 mg Documented by: Multivitamins (Multivitamins, Thera 1 Each Tab) 1 each PO DAILY [facility] Last Admin: 07/01/21 07:46 Dose: 1 each Documented by: Nitroglycerin (Nitroglycerin Sl Tabs 0.4 Mg Tab) 0.4 mg SUBLINGUAL Q5M PRN PRN Reason: Chest Pain Last Admin: 06/29/21 13:50 Dose: 0.4 mg Documented by: Nitroglycerin (Nitroglycerin Oint 1 Inch/Gm Packet) 1 inch TOPICAL Q8HR [facility] Last Admin: 07/01/21 07:45 Dose: 1 inch Documented by: Ondansetron HCl (Ondansetron 4 Mg/2 Ml Vial) 4 mg IVP Q8HR PRN PRN Reason: Nausea And Vomiting Last Admin: 06/29/21 13:45 Dose: 4 mg Documented by: Zolpidem Tartrate (Zolpidem 5 Mg Tab) 5 mg PO HS PRN PRN Reason: Insomnia Past medical history to include: Hypertension, urinary incontinence, chronic diverticulosis, polyps, arthritis 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 No smoking alcohol occasionally. Family history: Congestive heart failure Physical examination: VITAL SIGNS: 97.3, 93, 20, 132/64, 94% room air GENERAL: reclining in bed, awake, tired. EYES: Pupils equal. Conjunctiva normal. HEENT: External appearance of nose and ears normal, oral cavity grossly normal. NECK: JVD possibility raised; masses not palpable. HEART: First and second heart sounds are normal; no edema. LUNGS: Respiratory rate normal; left basal crackles ABDOMEN: Soft, nontender, liver spleen not palpable, no masses palpable. PSYCH: Alert and oriented x3; mood and affect normal. MUSCULOSKELETAL:No Clubbing/cyanosis;muscles-grossly intact. Evidence of OA NEUROLOGICAL: Cranial nerves grossly intact; no facial asymmetry, power and sensation grossly intact. INVESTIGATIONS, reviewed in the clinical context: Liver ultrasound: Some cortical thinning of the kidney. Liver: hyperechoic appearance. July 01: White count 14 hemoglobin 13.6 platelets 206 potassium 3.2 BUN 23 creatinine 1.35 AST 120 ALT 41 LDL 50 June 30: White count 15.2 hemoglobin 14.2 potassium 3.6 BUN 19 creatinine 1.17 total bilirubin 2.4 AST 294 ALT 61 2-D echocardiogram: Multiple wall motion up to 90. EF 35-40%. Moderate to severe mitral regurgitation. UA: Negative White count 15.6 hemoglobin 16.2 platelets 254 sodium 138 potassium 4.6 BUN 21 creatinine 1.06 total bilirubin 1.5 AST 241 ALT 47 Troponin I 26.2, 161, 188 Coronavirus [PCR]: Not detected Chest x-ray film personally reviewed by me-venous prominence. Mild cardiomegaly EKG tracing personally reviewed by me-ST elevation inferior leads and ST depr ession in lateral leads sinus rhythm, intraventricular block Assessment and plan: -Acute inferior wall myocardial infarction Cardiac catheterization showed lesions in RCA and LAD. Stenting done to RCA Aspirin 81 mg daily, Lipitor 40 mg daily at bedtime, Toprol-XL 12.5 mg day, Brilinta 90 mg twice a day -Acute congestive heart failure exacerbation from acute myocardial infarction. Systolic dysfunction EF 35-40% Reduce Lasix 40 mg a day. Toprol-XL 12.5 mg. -Essential hypertension Norvasc -discontinued, Toprol-XL 12.5 mg a day -Hypothyroid Synthroid 50 g a day -Acute UTI with cystitis doxycycline 100 mg twice a day. Repeat UA negative. Doxycycline discontinued -Acute hepatitis, possible ischemic from low blood pressure: Started to improve Repeat LFTs. Patient on Lipitor. -Hypomagnesemia Replace magnesium -Possible chronic kidney disease, stage III likely from nephrosclerosis In view of cardiac cath clear to keep a close eye, also patient is on Lasix. -Hypokalemia Replace potassium -Primary osteoarthritis multiple joints Tylenol as needed Aspirin, Proventil, Toprol-XL, Lipitor, decreased Lasix 40 mg a day . LFT started to come down. Repeat again tomorrow. Activity as tolerated. Repeat LFTs, BMP.
[2021-07-01] MEDS: ATORVASTATIN 40 MG TAB PO SCH (20:41)
[2021-07-02] MEDS: LEVOTHYROXINE 50 MCG TAB PO SCH (06:24)
[2021-07-02] MEDS ORDERED: FUROSEMIDE 10 MG/ML 4 ML VIAL IV SCH (09:00)
[2021-07-02] MEDS: NITROGLYCERIN OINT 1 INCH/GM PACKET TOPICAL SCH (09:00)
[2021-07-02] MEDS: METOPROLOL SUCCINATE (ER) 25 MG TAB.ER.24H PO SCH (09:01)
[2021-07-02] MEDS: lisinopriL 5 MG TAB PO SCH (09:01)
[2021-07-02] MEDS: CLOPIDOGREL 75 MG TAB PO SCH (09:01)
[2021-07-02] MEDS: ASPIRIN 81 MG PO SCH (09:01)
[2021-07-02] MEDS: MULTIVITAMINS, THERA 1 EACH TAB PO SCH (09:01)
[2021-07-02] MEDS: MAGNESIUM OXIDE 400 MG TAB PO SCH ×2 (09:01→21:28)
[2021-07-02 10:07] LABS: Albumin 3.2 g/dL (3.5-5.0); Calcium 9.5 mg/dL (8.4-10.2); Potassium 3.6 mmol/L (3.5-5.1); Total Bilirubin 1.7 mg/dL (0.2-1.3); Total Protein 6.6 g/dL (6.3-8.2)
--- NOTE | 2021-07-02 10:15 | P.PN ---
Subjective Progress Note Date: 07/02/21 Principal diagnosis: Acute inferior wall myocardial infarction Patient is chest pain-free ambulating without any problems has some shortness of breath currently in IV Lasix which I'm going to switch to by mouth Objective - Vital Signs Vital signs: Vital Signs Temp 97.9 F 07/02/21 08:00 Pulse 88 07/02/21 08:00 Resp 16 07/02/21 08:00 BP 99/63 07/02/21 08:00 Pulse Ox 97 07/02/21 08:00 Intake & Output 07/01/21 07/02/21 07/02/21 18:59 06:59 18:59 Intake Total 480 180 Balance 480 180 Intake: Oral 480 180 Other: Voiding Method Toilet Toilet Toilet Diaper Diaper Diaper # Voids 3 0 - Exam General: The patient is awake and alert, in no distress, and does not appear acutely ill. Skin: Skin is warm and dry and no rashes or lesions are noted. Eye: Pupils are equal, round and reactive to light, extra-ocular movements are intact; there is normal conjunctiva bilaterally. Ears, nose, mouth and throat: There are moist mucous membranes and no oral lesions. Neck: The neck is supple, there is no tenderness or JVD. Cardiovascular: Irregular No murmur, rub or gallop is appreciated. Respiratory: Lungs are clear to auscultation, respirations are non-labored, breath sounds are equal. Gastrointestinal: Soft, non-distended, non-tender abdomen without masses or organomegaly noted. There is no rebound or guarding present. Bowel sounds are unremarkable. Back: There is no tenderness to palpation in the midline. There is no obvious deformity. Musculoskeletal: Normal ROM, no tenderness, There is no pedal edema. There is no calf tenderness or swelling. Extremities: No edema. Vascular: Femoral pulse is normal. Posterior tibial pulses are normal .Dorsalis pedis is palpable. Neurological: CN II-XII intact. There are no obvious motor or sensory deficits. Speech is normal. Psychiatric: Cooperative, appropriate mood & affect, normal judgment. - Labs CBC & Chem 7: 07/01/21 06:22 07/02/21 09:16 Labs: Abnormal Lab Results - Last 24 Hours (Table) 07/02/21 Range/Units 09:16 Sodium 132 L (137-145) mmol/L Chloride 97 L (98-107) mmol/L BUN 27 H (7-17) mg/dL Creatinine 1.40 H (0.52-1.04) mg/dL Glucose 236 H (74-99) mg/dL Total Bilirubin 1.7 H (0.2-1.3) mg/dL AST 66 H (14-36) U/L Albumin 3.2 L (3.5-5.0) g/dL Assessment and Plan Assessment: Acute inferior wall myocardial infarction Plan: Patient underwent angioplasty with stent placement of right coronary artery has evidence of inferior wall myocardial infarction with LV systolic dysfunction and severe mitral regurgitation she developed congestive heart failure which has improved I will switch her Lasix to by mouth ambulate her and hopefully home rahat orrow she has a significant stenosis involving mid LAD Will continue current medications
[2021-07-02] MEDS: ISOSORBIDE MONONITRATE ER 60 MG TAB.ER.24H PO SCH (10:41)
--- NOTE | 2021-07-02 18:00 | P.PN ---
Progress Note - Text Progress Note Date: 07/02/21 Chief Complaint: Chest pain This is a pleasant 89-year-old patient of Dr. Fernandez. Chronic stable medical conditions include hypertension, hypothyroid, osteoarthritis, urinary incontinence, arthritis in the back and hands. Last Sunday patient had gone to her family doctor and when she left she felt really weak and tired. Over the weekend she continued to feel tired decreased appetite just rundown. Yesterday patient started becoming short of breath and also noticed a heaviness in the chest like a dock sitting there. No radiation. Some worsening with activity. [place] also it could be a gas discomfort. Finally decided to come to the ER. Patient initial troponin was 26. Ruled in for an acute ST elevation [place]. Dr. Evelyne Torrez did the diagnostic cardiac catheterization and lesions in the RCA and LAD. Dr. Reddy subsequently stent of the RCA. Postprocedure patient reported ICU. Tired. Patient is daughter Liana at the bedside. June 30: Laying in bed. A bit tired. Some shortness of breath. On oxygen. No chest pain. Encouraged to be out of bed. UA negative. Stopped antibiotic. July 01: Reclining in bed, tired. A bit short of breath. 2 L of oxygen. Did eat some. No chest pain. Some increase in creatinine. Cardiology did decrease to Lasix. LFTs slowly coming down. It has been up to the bathroom July 02: Patient does get short of breath. No chest pain. On nasal cannula. Tired. Eating fair. Review of systems: Was done for constitutional, cardiovascular, GI, pulmonary. relevant finding as above Active Medications Al Hydroxide/Mg Hydroxide (Mag Hydrox/Al Hydrox/Simeth 30 Ml Cup) 30 ml PO Q4HR PRN PRN Reason: Heartburn Aspirin (Aspirin 81 Mg) 81 mg PO DAILY [facility] Last Admin: 07/02/21 09:01 Dose: 81 mg Documented by: Atorvastatin Calcium (Atorvastatin 40 Mg Tab) 40 mg PO HS [facility] Last Admin: 07/01/21 20:41 Dose: 40 mg Documented by: Atropine Sulfate (Atropine Sulfate 0.1 Mg/Ml 10ml Syringe) 0.5 mg IV ONCE PRN PRN Reason: Symptomatic Bradycardia Clopidogrel Bisulfate (Clopidogrel 75 Mg Tab) 75 mg PO DAILY [facility] Last Admin: 07/02/21 09:01 Dose: 75 mg Documented by: Furosemide (Furosemide 40 Mg Tab) 40 mg PO DAILY [facility] Isosorbide Mononitrate (Isosorbide Mononitrate Er 60 Mg Tab.Er.24h) 60 mg PO DAILY [facility] Last Admin: 07/02/21 10:41 Dose: 60 mg Documented by: Levothyroxine Sodium (Levothyroxine 50 Mcg Tab) 50 mcg PO QAM@0630 [facility] Last Admin: 07/02/21 06:24 Dose: 50 mcg Documented by: Lisinopril (Lisinopril 5 Mg Tab) 5 mg PO DAILY [facility] Last Admin: 07/02/21 09:01 Dose: 5 mg Documented by: Magnesium Oxide (Magnesium Oxide 400 Mg Tab) 400 mg PO BID [facility] Last Admin: 07/02/21 09:01 Dose: 400 mg Documented by: Metoprolol Succinate (Metoprolol Succinate (Er) 25 Mg Tab.Er.24h) 12.5 mg PO DAILY [facility] Last Admin: 07/02/21 09:01 Dose: 12.5 mg Documented by: Multivitamins (Multivitamins, Thera 1 Each Tab) 1 each PO DAILY [facility] Last Admin: 07/02/21 09:01 Dose: 1 each Documented by: Nitroglycerin (Nitroglycerin Sl Tabs 0.4 Mg Tab) 0.4 mg SUBLINGUAL Q5M PRN PRN Reason: Chest Pain Last Admin: 06/29/21 13:50 Dose: 0.4 mg Documented by: Ondansetron HCl (Ondansetron 4 Mg/2 Ml Vial) 4 mg IVP Q8HR PRN PRN Reason: Nausea And Vomiting Last Admin: 06/29/21 13:45 Dose: 4 mg Documented by: Zolpidem Tartrate (Zolpidem 5 Mg Tab) 5 mg PO HS PRN PRN Reason: Insomnia Past medical history to include: Hypertension, urinary incontinence, chronic diverticulosis, polyps, arthritis 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 No smoking alcohol occasionally. Family history: Congestive heart failure Physical examination: VITAL SIGNS: 98.1, 78, 16, 99/54, 94% on 2 L GENERAL: reclining in bed, awake, tired. EYES: Pupils equal. Conjunctiva normal. HEENT: External appearance of nose and ears normal, oral cavity grossly normal. NECK: JVD possibility raised; masses not palpable. HEART: First and second heart sounds are normal; no edema. LUNGS: Respiratory rate normal; lungs clear ABDOMEN: Soft, nontender, liver spleen not palpable, no masses palpable. PSYCH: Alert and oriented x3; mood and affect normal. MUSCULOSKELETAL:No Clubbing/cyanosis;muscles-grossly intact. Evidence of OA NEUROLOGICAL: Cranial nerves grossly intact; no facial asymmetry, power and sensation grossly intact. INVESTIGATIONS, reviewed in the clinical context: July 02: Potassium 3.6 BUN 27 creatinine 1.4 bilirubin 1.7 AST 66 Liver ultrasound: Some cortical thinning of the kidney. Liver: hyperechoic appearance. July 01: White count 14 hemoglobin 13.6 platelets 206 potassium 3.2 BUN 23 creatinine 1.35 AST 120 ALT 41 LDL 50 June 30: White count 15.2 hemoglobin 14.2 potassium 3.6 BUN 19 creatinine 1.17 total bilirubin 2.4 AST 294 ALT 61 2-D echocardiogram: Multiple wall motion up to 90. EF 35-40%. Moderate to severe mitral regurgitation. UA: Negative White count 15.6 hemoglobin 16.2 platelets 254 sodium 138 potassium 4.6 BUN 21 creatinine 1.06 total bilirubin 1.5 AST 241 ALT 47 Troponin I 26.2, 161, 188 Coronavirus [PCR]: Not detected Chest x-ray film personally reviewed by me-venous prominence. Mild cardiomegaly EKG tracing personally reviewed by me-ST elevation inferior leads and ST depression in lateral leads sinus rhythm, intraventricular block Assessment and plan: -Acute inferior wall myocardial infarction Cardiac catheterization showed lesions in RCA and LAD. Stenting done to RCA Aspirin 81 mg daily, Lipitor 40 mg daily at bedtime, Toprol-XL 12.5 mg day, Brilinta 90 mg twice a day -Acute congestive heart failure exacerbation from acute myocardial infarction. Systolic dysfunction EF 35-40% Lasix 40 mg a day. Toprol-XL 12.5 mg. Zestril 5 mg daily at bedtime added -Essential hypertension Norvasc -discontinued, Toprol-XL 12.5 mg a day -Hypothyroid Synthroid 50 g a day -Acute UTI with cystitis doxycycline 100 mg twice a day. Repeat UA negative. Doxycycline discontinued -Acute hepatitis, possible ischemic from low blood pressure: Improving Repeat LFTs. Continue Lipitor -Hypomagnesemia Replace magnesium -Possible chronic kidney disease, stage III likely from nephrosclerosis In view of cardiac cath clear to keep a close eye, also patient is on Lasix. -Acute kidney injury, cardiorenal from hypotension. Follow renal function -Hypokalemia Replace potassium -Primary osteoarthritis multiple joints Tylenol as needed Aspirin, Proventil, Toprol-XL, Lipitor, Lasix. . 12.5 mg. . LFT coming down.. Activity as tolerated. Repeat CMP. Zestril 5 mg daily at bedtime added.
[2021-07-02] MEDS: ATORVASTATIN 40 MG TAB PO SCH (21:28)
[2021-07-03 00:38] VITALS: RESP 16
[2021-07-03] MEDS: LEVOTHYROXINE 50 MCG TAB PO SCH (05:53)
[2021-07-03] MEDS: MAGNESIUM OXIDE 400 MG TAB PO SCH (08:06)
[2021-07-03] MEDS: ISOSORBIDE MONONITRATE ER 60 MG TAB.ER.24H PO SCH (08:06)
[2021-07-03] MEDS: MULTIVITAMINS, THERA 1 EACH TAB PO SCH (08:06)
[2021-07-03] MEDS: ASPIRIN 81 MG PO SCH (08:06)
[2021-07-03] MEDS: METOPROLOL SUCCINATE (ER) 25 MG TAB.ER.24H PO SCH (08:06)
[2021-07-03] MEDS: CLOPIDOGREL 75 MG TAB PO SCH (08:06)
[2021-07-03] MEDS ORDERED: FUROSEMIDE 40 MG TAB PO SCH (09:00)
[2021-07-03 09:06] LABS: Albumin 3.4 g/dL (3.5-5.0); Calcium 9.8 mg/dL (8.4-10.2); Potassium 4.2 mmol/L (3.5-5.1); Total Bilirubin 1.3 mg/dL (0.2-1.3); Total Protein 6.9 g/dL (6.3-8.2)
[2021-07-03 09:36] VITALS: BP 126/61; PULSE 82; TEMP 97.5
--- NOTE | 2021-07-03 12:01 | P.PN ---
Subjective Progress Note Date: 07/03/21 This is an 89-year-old female past medical history of pre-diabetes, hypertension, dyslipidemia. 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 Patient presented to the hospital with chest pain and was found to have inferior STEMI. She underwent diagnostic catheterization by Dr. Bonilla from a right femoral appr [facility] which showed 100% RCA stenosis, mid LAD with focal 7080% stenosis, elevated left sided filling pressures. Patient underwent successful PCI of RCA with 3 stents. Echocardiogram revealed an EF of 3540 percent, with basal lateral, inferior, inferoseptal, mid lateral, inferior and apical inferior wall motion abnormalities, moderate to severe mitral regurgitation. Patient is examined resting in bed comfortably, with no signs of acute distress. Patient complains she is doing much better today. She denies chest pain, palpitations, dyspnea, dizziness, or syncope. She denies shortness of breath with activity. Patient's been up walking around in the halls doing well. Patient is ready to go home today. Objective - Vital Signs Vital signs: Vital Signs Temp 97.5 F L 07/03/21 08:05 Pulse 82 07/03/21 08:05 Resp 16 07/03/21 08:05 BP 126/61 07/03/21 08:05 Pulse Ox 94 L 07/03/21 08:05 Intake & Output 07/02/21 07/03/21 07/03/21 18:59 06:59 18:59 Intake Total 360 Balance 360 Weight 65.3 kg Intake: Oral 360 Other: Voiding Method Toilet Toilet Toilet Diaper Diaper Diaper # Voids 1 # Bowel Movements 0 - Exam PHYSICAL EXAM: VITAL SIGNS: Reviewed. GENERAL: Well-developed in no acute distress. HEENT: Head is normocephalic. Pupils are equal, round. Sclerae anicteric. Mucous membranes of the mouth are moist. NECK: Supple. No JVD or thyromegaly RESPIRATORY: Respirations even and unlabored. Lungs diminished to auscultation bilaterally. CARDIO: Regular rate and rhythm. S1 and S2 heard. No murmur or gallops. EXTREMITIES: Normal range of motion. No clubbing or cyanosis. Peripheral pulses intact. Negative for bilateral lower extremity edema NEURO: Orientated to person, time, mood is appropriate - Labs CBC & Chem 7: 07/01/21 06:22 07/03/21 07:52 Labs: Abnormal Lab Results - Last 24 Hours (Table) 07/03/21 Range/Units 07:52 Sodium 133 L (137-145) mmol/L Chloride 96 L (98-107) mmol/L BUN 31 H (7-17) mg/dL Creatinine 1.30 H (0.52-1.04) mg/dL Glucose 151 H (74-99) mg/dL AST 62 H (14-36) U/L ALT 40 H (4-34) U/L Albumin 3.4 L (3.5-5.0) g/dL Assessment and Plan Assessment: Acute inferior wall STEMI Status post PCI to mid RCA x3 on 06/29/21 History of hypertension Dyslipidemia Ischemic cardiomyopathy EF 35-40% Elevated LFTs Plan: Continue lisinopril Continue with Plavix Continue aspirin and statin Continue with beta jerry Continue lasix We will monitor patient's BP Monitor renal function, electrolytes and LFTs Continue cardiac telemetry Patient cleared for discharge The above impression and plan of care have been discussed and directed by the signing physician. Angie Alexander, nurse practitioner, acting as scribe for signing physician.
--- NOTE | 2021-07-03 20:07 | P.DS ---
Providers Date of admission: 06/29/21 08:37 Expected date of discharge: 07/03/21 Attending physician: Torres Warren Consults: 06/29/21 08:39 Consult Physician Urgent Consulting Provider: Alex Bonilla Consult Reason/Comments: STEMI Do you want consulting provider notified?: Already Contacted 06/29/21 10:58 Consult Physician Routine Consulting Provider: [facility] Consult Reason/Comments: Post Interventional patient Do you want consulting provider notified?: Already Contacted Primary care physician: Dwaine [facility] Course: Chief Complaint: Chest pain This is a pleasant 89-year-old patient of Dr. Fernandez. Chronic stable medical conditions include hypertension, hypothyroid, osteoarthritis, urinary incontinence, arthritis in the back and hands. Last Sunday patient had gone to her family doctor and when she left she felt really weak and tired. Over the weekend she continued to feel tired decreased appetite just rundown. Yesterday patient started becoming short of breath and also noticed a heaviness in the chest like a dock sitting there. No radiation. Some worsening with activity. [place] also it could be a gas discomfort. Finally decided to come to the ER. Patient initial troponin was 26. Ruled in for an acute ST elevation [place]. Dr. Evelyne Torrez did the diagnostic cardiac catheterization and lesions in the RCA and LAD. Dr. Reddy subsequently stent of the RCA. Postprocedure patient reported ICU. Tired. Patient is daughter Liana at the bedside. June 30: Laying in bed. A bit tired. Some shortness of breath. On oxygen. No chest pain. Encouraged to be out of bed. UA negative. Stopped antibiotic. July 01: Reclining in bed, tired. A bit short of breath. 2 L of oxygen. Did eat some. No chest pain. Some increase in creatinine. Cardiology did decrease to Lasix. LFTs slowly coming down. It has been up to the bathroom July 02: Patient does get short of breath. No chest pain. On nasal cannula. Tired. Eating fair. July 03:. Sitting up. Did walk today. Breathing much improved. Pulse ox 94% room air. Discussed with cardiology. 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 No smoking alcohol occasionally. Family history: Congestive heart failure Physical examination: VITAL SIGNS: 97.5, 82, 16, 126/61, 94% room air GENERAL: reclining in bed, awake, tired. EYES: Pupils equal. Conjunctiva normal. HEENT: External appearance of nose and ears normal, oral cavity grossly normal. NECK: JVD possibility raised; masses not palpable. HEART: First and second heart sounds are normal; no edema. LUNGS: Respiratory rate normal; lungs clear ABDOMEN: Soft, nontender, liver spleen not palpable, no masses palpable. PSYCH: Alert and oriented x3; mood and affect normal. MUSCULOSKELETAL:No Clubbing/cyanosis;muscles-grossly intact. Evidence of OA NEUROLOGICAL: Cranial nerves grossly intact; no facial asymmetry, power and sensation grossly intact. INVESTIGATIONS, reviewed in the clinical context: July 03: Potassium 4.2 BUN 31 and creatinine 1.30. AST 62. ALT 40 July 02: Potassium 3.6 BUN 27 creatinine 1.4 bilirubin 1.7 AST 66 Liver ultrasound: Some cortical thinning of the kidney. Liver: hyperechoic appearance. July 01: White count 14 hemoglobin 13.6 platelets 206 potassium 3.2 BUN 23 creatinine 1.35 AST 120 ALT 41 LDL 50 June 30: White count 15.2 hemoglobin 14.2 potassium 3.6 BUN 19 creatinine 1.17 total bilirubin 2.4 AST 294 ALT 61 2-D echocardiogram: Multiple wall motion up to 90. EF 35-40%. Moderate to severe mitral regurgitation. UA: Negative White count 15.6 hemoglobin 16.2 platelets 254 sodium 138 potassium 4.6 BUN 21 creatinine 1.06 total bilirubin 1.5 AST 241 ALT 47 Troponin I 26.2, 161, 188 Coronavirus [PCR]: Not detected Chest x-ray film personally reviewed by me-venous prominence. Mild cardiomegaly EKG tracing personally reviewed by me-ST elevation inferior leads and ST depression in lateral leads sinus rhythm, intraventricular block Assessment and plan: -Acute inferior wall myocardial infarction Cardiac catheterization showed lesions in RCA and LAD. Stenting done to RCA Aspirin 81 mg daily, Lipitor 40 mg daily at bedtime, Toprol-XL 12.5 mg day, Brilinta 90 mg twice a day -Acute congestive heart failure exacerbation from acute myocardial infarction. Systolic dysfunction EF 35-40% Lasix 40 mg a day. Toprol-XL 12.5 mg. Zestril 5 mg daily at bedtime added -Essential hypertension Norvasc -discontinued, Toprol-XL 12.5 mg a day -Hypothyroid Synthroid 50 g a day -Acute UTI with cystitis doxycycline 100 mg twice a day. Repeat UA negative. Doxycycline discontinued -Acute hepatitis, possible ischemic from low blood pressure: Improving Continue Lipitor. Repeat LFTs in 1 weeks upon discharge. -Hypomagnesemia Replace magnesium -Possible chronic kidney disease, stage III likely from nephrosclerosis In view of cardiac cath clear to keep a close eye, also patient is on Lasix. -Acute kidney injury, cardiorenal from hypotension.: Stabilized Follow renal function -Hypokalemia Replace potassium -Primary osteoarthritis multiple joints Tylenol as needed Disposition: Home Labs: CMP: 1 week Plan - Discharge Summary Discharge Rx Participant: No New Discharge Prescriptions: New Aspirin 81 mg PO DAILY #30 tab Furosemide [Lasix] 40 mg PO DAILY@1300 #30 tab Atorvastatin [Lipitor] 40 mg PO HS #30 tab Nitroglycerin Sl Tabs [Nitrostat] 0.4 mg SUBLINGUAL Q5M PRN #30 tab PRN Reason: Chest Pain Clopidogrel [Plavix] 75 mg PO DAILY #30 tab Metoprolol Succinate (ER) [Toprol XL] 12.5 mg PO DAILY #30 Isosorbide Mononitrate ER [Imdur] 60 mg PO DAILY #30 tablet lisinopriL [Zestril] 5 mg PO HS #30 tab Continue Levothyroxine Sodium [Synthroid] 50 mcg PO QAM Multivitamins, Thera [Multivitamin (formulary)] 1 tab PO DAILY [place]-3 Fatty Acids/Fish Oil [Fish Oil 1,000 mg Softgel] 1 cap PO DAILY Discontinued Niacin 1 tab PO DAILY amLODIPine [Norvasc] 10 mg PO DAILY Doxycycline Hyclate 100 mg PO BID Discharge Medication List Levothyroxine Sodium [Synthroid] 50 mcg PO QAM 08/26/18 [History] Multivitamins, Thera [Multivitamin (formulary)] 1 tab PO DAILY 06/29/21 [History] [place]-3 Fatty Acids/Fish Oil [Fish Oil 1,000 mg Softgel] 1 cap PO DAILY 06/29/21 [History] Aspirin 81 mg PO DAILY #30 tab 07/03/21 [Rx] Atorvastatin [Lipitor] 40 mg PO HS #30 tab 07/03/21 [Rx] Clopidogrel [Plavix] 75 mg PO DAILY #30 tab 07/03/21 [Rx] Furosemide [Lasix] 40 mg PO DAILY@1300 #30 tab 07/03/21 [Rx] Isosorbide Mononitrate ER [Imdur] 60 mg PO DAILY #30 tablet 07/03/21 [Rx] Metoprolol Succinate (ER) [Toprol XL] 12.5 mg PO DAILY #30 07/03/21 [Rx] Nitroglycerin Sl Tabs [Nitrostat] 0.4 mg SUBLINGUAL Q5M PRN #30 tab 07/03/21 [Rx] lisinopriL [Zestril] 5 mg PO HS #30 tab 07/03/21 [Rx] Follow up Appointment(s)/Referral(s): Dwaine Fernandez DO [Primary Care Provider] - 1-2 days Alex Bonilla MD [STAFF PHYSICIAN] - 1 Week Patient Instructions/Handouts: Heart Attack (DC) Discharge Disposition: HOME WITH HOME HEALTH SERVICES
[2021-07-03] MEDS ORDERED: lisinopriL 5 MG TAB PO SCH (21:00)
== END 2021-07-03 14:14 | disposition home health service (06) | DRG 270 ==
LOC: EC 08:05 → 2SICU 08:37 → 3SCARD 18:08
PROVIDERS: ADMIT Hospitalist; ATTEND Hospitalist
PROC: B2111ZZ Fluoroscopy of Multiple Coronary Arteries using Low Osmolar Contrast (ICD-10-PCS; 2021-06-29)
PROC: B2151ZZ Fluoroscopy of Left Heart using Low Osmolar Contrast (ICD-10-PCS; 2021-06-29)
PROC: 027034Z Dilation of Coronary Artery, One Artery with Drug-eluting Intraluminal Device, Percutaneous Approach (ICD-10-PCS; principal; 2021-06-29 08:43)
PROC: X2CY3T7 Extirpation of Matter from Great Vessel using Computer-aided Mechanical Aspiration, Percutaneous Approach, New Technology Group 7 (ICD-10-PCS; 2021-06-29 08:43)
PROC: 4A023N7 Measurement of Cardiac Sampling and Pressure, Left Heart, Percutaneous Approach (ICD-10-PCS; 2021-06-29 08:43)
DX: I21.19 ST elevation (STEMI) myocardial infarction involving other coronary artery of inferior wall (principal); I50.23 Acute on chronic systolic (congestive) heart failure; N17.9 Acute kidney failure, unspecified; B17.9 Acute viral hepatitis, unspecified; N30.00 Acute cystitis without hematuria; Z20.822 Contact with and (suspected) exposure to COVID-19; E03.9 Hypothyroidism, unspecified; E11.9 Type 2 diabetes mellitus without complications; E78.5 Hyperlipidemia, unspecified; E83.42 Hypomagnesemia; E87.6 Hypokalemia; I11.0 Hypertensive heart disease with heart failure; I25.10 Atherosclerotic heart disease of native coronary artery without angina pectoris; I25.5 Ischemic cardiomyopathy; I34.0 Nonrheumatic mitral (valve) insufficiency; M19.041 Primary osteoarthritis, right hand; M47.9 Spondylosis, unspecified; I95.9 Hypotension, unspecified; R79.89 Other specified abnormal findings of blood chemistry; Z79.02 Long term (current) use of antithrombotics/antiplatelets; Z79.82 Long term (current) use of aspirin; Z98.61 Coronary angioplasty status; Z87.891 Personal history of nicotine dependence; Z87.19 Personal history of other diseases of the digestive system; Z82.49 Family history of ischemic heart disease and other diseases of the circulatory system; Z79.899 Other long term (current) drug therapy; Z79.890 Hormone replacement therapy
CPT/HCPCS: 36415; 71045; 76705; 80053; 80061; 81003; 83690; 83735; 84484; 85025; 85379; 85610; 85730; 87635; 92973; 93005; 93306; 93458; 94760; 99285

== ENCOUNTER 2021-11-04 01:01 | Inpatient (IN) | payer MEDICARE ==
[2021-11-04 03:25] LABS: Calcium 9.1 mg/dL (8.4-10.2); Total Bilirubin 1.8 mg/dL (0.2-1.3); Total Protein 7.3 g/dL (6.3-8.2)
--- NOTE | 2021-11-04 03:27 | XR ---
EXAMINATION TYPE: XR chest 2V DATE OF EXAM: 11/04/2021 COMPARISON: 06/29/2021 HISTORY: Chest pain short of breath TECHNIQUE: FINDINGS: There is moderate pulmonary interstitial edema. There are chest leads. Heart size is fairly normal. Thoracic ureter is atheromatous. No definite pleural effusion. Bony thorax is intact. IMPRESSION: Increased pulmonary edema compared to old exam could be acute heart failure. Worsening i nterstitial chronic pneumonia also possible.
[2021-11-04 03:28] LABS: INR 0.9 (<1.2); Partial Thromboplastin Time 24.8 sec (22.0-30.0); Prothrombin Time 10.4 sec (9.0-12.0)
[2021-11-04 03:34] LABS: Anisocytosis Slight; Basophils # (A) 0.1 k/uL (0-0.2); Basophils % (A) 1 %; Eosinophils # (A) 0.2 k/uL (0-0.7); Eosinophils % (A) 1 %; Lymphocytes # (A) 2.3 k/uL (1.0-4.8); Lymphocytes % (A) 21 %; MCH 30.8 pg (25.0-35.0); MCHC 33.4 g/dL (31.0-37.0); MCV 92.2 fL (80.0-100.0); Mean Platelet Volume 9.4; Monocytes # (A) 0.4 k/uL (0-1.0); Monocytes % (A) 4 %; Neutrophils # (A) 8.1 k/uL (1.3-7.7); Neutrophils % (A) 73 %; Platelet Count 218 k/uL (150-450); RBC 4.55 m/uL (3.80-5.40); RDW 16.8 % (11.5-15.5); WBC 11.2 k/uL (3.8-10.6)
[2021-11-04] MEDS ORDERED: FUROSEMIDE 10 MG/ML 4 ML VIAL IV STA (04:06)
[2021-11-04] MEDS ORDERED: NITROGLYCERIN OINT 1 INCH/GM PACKET TOPICAL STA (04:06)
--- NOTE | 2021-11-04 05:00 | ED ---
SOB HPI - General Chief Complaint: Shortness of Breath Stated Complaint: SOB Time Seen by Provider: 11/04/21 02:17 Source: patient Mode of arrival: wheelchair Limitations: no limitations - History of Present Illness Initial Comments: This patient is an 89-year-old woman who presents to be evaluated for dyspnea. Patient states that there may have been a little bit of it yesterday but she really noticed it becoming prominent after she had tried to go to bed. The breathing is a little worse lying flat. She does have history of congestive heart failure this feels similar. She has not noted fever or chills. No productive cough. No change in urination or bowel movements. No leg pain or swelling. MD Complaint: shortness of breath -: hour(s) Severity: mild Quality: dull Consistency: constant Improves With: nothing Worsens With: lying flat Known History Of: congestive heart failure Associated Symptoms: denies other symptoms - Related Data Home Oxygen Therapy: No Home Medications Medication Instructions Recorded Confirmed Levothyroxine Sodium [Synthroid] 50 mcg PO DAILY 08/26/18 11/04/21 Aspirin 81 mg PO DAILY 11/04/21 11/04/21 Furosemide [Lasix] 40 mg PO DAILY 11/04/21 11/04/21 lisinopriL [Zestril] 5 mg PO DAILY 11/04/21 11/04/21 Previous Rx's Medication Instructions Recorded Atorvastatin [Lipitor] 40 mg PO HS #30 tab 07/03/21 Clopidogrel [Plavix] 75 mg PO DAILY #30 tab 07/03/21 Isosorbide Mononitrate ER [Imdur] 60 mg PO DAILY #30 tablet 07/03/21 Metoprolol Succinate (ER) [Toprol 12.5 mg PO DAILY #30 07/03/21 XL] Nitroglycerin Sl Tabs [Nitrostat] 0.4 mg SUBLINGUAL Q5M PRN #30 tab 07/03/21 Allergies Allergy/AdvReac Type Severity Reaction Status Date / Time acetaminophen [From Lortab] AdvReac Rash/Hives Verified 11/04/21 07:24 amoxicillin AdvReac Nausea & Verified 11/04/21 07:24 Vomiting ciprofloxacin AdvReac Rash/Hives Verified 11/04/21 07:24 hydrocodone [From Lortab] AdvReac Rash/Hives Verified 11/04/21 07:24 NSAIDS (Non-Steroidal AdvReac KIDNEY Verified 11/04/21 07:24 Anti-Inflamma PROBLEMS Review of Systems ROS Statement: Those systems with pertinent positive or pertinent negative responses have been documented in the HPI. ROS Other: All systems not noted in ROS Statement are negative. Constitutional: Denies: fever, chills Respiratory: Reports: dyspnea. Denies: cough, wheezes Cardiovascular: Reports: orthopnea. Denies: chest pain, palpitations, edema, syncope Gastrointestinal: Denies: abdominal pain, vomiting, diarrhea Genitourinary: Denies: dysuria, hematuria Musculoskeletal: Denies: back pain Skin: Denies: rash Neurological: Denies: headache, weakness Past Medical History Past Medical History: Diabetes Mellitus, Hypertension, Osteoarthritis (OA), Thyroid Disorder Additional Past Medical History / Comment(s): Currently being treated for UTI/abx, diabetes/diet controlled/"pre", arthritis R hand and in back, back pain, hypothyroid, diverticular disease/benign colon polyp, urinary i ncontinence. History of Any Multi-Drug Resistant Organisms: None Reported Past Surgical History: Adenoidectomy, Cholecystectomy, Heart Catheterization With Stent, Orthopedic Surgery, Tonsillectomy Additional Past Surgical History / Comment(s): 06/29/21 PCI with 2 stents to RCA, R rotator cuff repair, L carpal tunnel release, R foot bone spur removed, R thumb trigger finger surgery, colonoscopies/polypectomies, D&Cs, bilateral cataract removals. Past Anesthesia/Blood Transfusion Reactions: No Reported Reaction Date of Last Stent Placement:: 06/29/21 Past Psychological History: No Psychological Hx Reported Smoking Status: Former smoker Past Alcohol Use History: None Reported Past Drug Use History: None Reported - Past Family History Father Additional Family Medical History / Comment(s): Father had back surgery Mother Family Medical History: Congestive Heart Failure (CHF) Additional Family Medical History / Comment(s): Mother from chf. General Exam Limitations: no limitations General appearance: alert, in no apparent distress Head exam: Present: atraumatic, normocephalic Eye exam: Present: normal appearance. Absent: scleral icterus, conjunctival injection Respiratory exam: Present: rales. Absent: respiratory distress, wheezes, rhonchi, stridor Cardiovascular Exam: Present: regular rate, normal rhythm, normal heart sounds. Absent: systolic murmur, diastolic murmur, rubs, gallop GI/Abdominal exam: Present: soft. Absent: distended, tenderness, guarding, rebound, rigid, mass Extremities exam: Present: normal inspection, normal capillary refill. Absent: pedal edema, calf tenderness Back exam: Present: normal inspection. Absent: CVA tenderness (R), CVA tenderness (L) Neurological exam: Present: alert Skin exam: Present: warm, dry, intact, normal color. Absent: rash Course Vital Signs 11/04/21 11/04/21 11/04/21 01:08 02:33 05:05 Temperature 97.5 F L 98.1 F Pulse Rate 91 81 87 Respiratory 18 22 18 Rate Blood Pressure 161/92 153/132 168/94 O2 Sat by Pulse 95 97 94 L Oximetry Medical Decision Making - Lab Data Result diagrams: 11/04/21 03:00 11/04/21 03:00 Lab Results 11/04/21 11/04/21 11/04/21 Range/Units 03:00 03:00 03:00 WBC 11.2 H (3.8-10.6) k/uL RBC 4.55 (3.80-5.40) m/uL Hgb 14.0 (11.4-16.0) gm/dL Hct 42.0 (34.0-46.0) % MCV 92.2 (80.0-100.0) fL MCH 30.8 (25.0-35.0) pg MCHC 33.4 (31.0-37.0) g/dL RDW 16.8 H (11.5-15.5) % Plt Count 218 (150-450) k/uL MPV 9.4 Neutrophils % 73 % Lymphocytes % 21 % Monocytes % 4 % Eosinophils % 1 % Basophils % 1 % Neutrophils # 8.1 H (1.3-7.7) k/uL Lymphocytes # 2.3 (1.0-4.8) k/uL Monocytes # 0.4 (0-1.0) k/uL Eosinophils # 0.2 (0-0.7) k/uL Basophils # 0.1 (0-0.2) k/uL Anisocytosis Slight PT 10.4 (9.0-12.0) sec INR 0.9 (<1.2) APTT 24.8 (22.0-30.0) sec D-Dimer 1.38 H (<0.60) mg/L FEU Sodium 141 (137-145) mmol/L Potassium 4.0 (3.5-5.1) mmol/L Chloride 108 H (98-107) mmol/L Carbon Dioxide 23 (22-30) mmol/L Anion Gap 10 mmol/L BUN 16 (7-17) mg/dL Creatinine 1.10 H (0.52-1.04) mg/dL Est GFR (CKD-EPI)AfAm 51 (>60 ml/min/1.73 sqM) Est GFR (CKD-EPI)NonAf 45 (>60 ml/min/1.73 sqM) Glucose 128 H (74-99) mg/dL Plasma Lactic Acid Abdoulaye (0.7-2.0) mmol/L Calcium 9.1 (8.4-10.2) mg/dL Total Bilirubin 1.8 H (0.2-1.3) mg/dL AST 22 (14-36) U/L ALT 18 (4-34) U/L Alkaline Phosphatase 109 (38-126) U/L Troponin I (0.000-0.034) ng/mL NT-Pro-B Natriuret Pep pg/mL Total Protein 7.3 (6.3-8.2) g/dL Albumin 4.0 (3.5-5.0) g/dL 11/04/21 11/04/21 11/04/21 Range/Units 03:00 03:00 03:00 WBC (3.8-10.6) k/uL RBC (3.80-5.40) m/uL Hgb (11.4-16.0) gm/dL Hct (34.0-46.0) % MCV (80.0-100.0) fL MCH (25.0-35.0) pg MCHC (31.0-37.0) g/dL RDW (11.5-15.5) % Plt Count (150-450) k/uL MPV Neutrophils % % Lymphocytes % % Monocytes % % Eosinophils % % Basophils % % Neutrophils # (1.3-7.7) k/uL Lymphocytes # (1.0-4.8) k/uL Monocytes # (0-1.0) k/uL Eosinophils # (0-0.7) k/uL Basophils # (0-0.2) k/uL Anisocytosis PT (9.0-12.0) sec INR (<1.2) APTT (22.0-30.0) sec D-Dimer (<0.60) mg/L FEU Sodium (137-145) mmol/L Potassium (3.5-5.1) mmol/L Chloride (98-107) mmol/L Carbon Dioxide (22-30) mmol/L Anion Gap mmol/L BUN (7-17) mg/dL Creatinine (0.52-1.04) mg/dL Est GFR (CKD-EPI)AfAm (>60 ml/min/1.73 sqM) Est GFR (CKD-EPI)NonAf (>60 ml/min/1.73 sqM) Glucose (74-99) mg/dL Plasma Lactic Acid Abdoulaye 1.0 (0.7-2.0) mmol/L Calcium (8.4-10.2) mg/dL Total Bilirubin (0.2-1.3) mg/dL AST (14-36) U/L ALT (4-34) U/L Alkaline Phosphatase (38-126) U/L Troponin I 0.021 (0.000-0.034) ng/mL NT-Pro-B Natriuret Pep 3970 pg/mL Total Protein (6.3-8.2) g/dL Albumin (3.5-5.0) g/dL - EKG Data -: EKG Interpreted by Vt EKG shows normal: sinus rhythm, intervals (Prolonged QRS consistent with left bundle branch block.), QRS complexes ((Bundle-branch block) Rate: normal (Rate 81 bpm) Disposition Clinical Impression: Acute exacerbation of CHF (congestive heart failure) Disposition: ADMITTED IP TO THIS HOSP Condition: Fair Is patient prescribed a controlled substance at d/c from ED?: No
[2021-11-04] MEDS: FUROSEMIDE 10 MG/ML 4 ML VIAL IV SCH ×2 (05:06→18:22)
[2021-11-04] MEDS: MORPHINE SULFATE 4 MG/ML SYRINGE IV STA ×2 (05:07→05:32)
[2021-11-04] MEDS: NITROGLYCERIN OINT 1 INCH/GM PACKET TOPICAL SCH ×4 (11:59→19:49)
[2021-11-04] MEDS: METOPROLOL SUCCINATE (ER) 25 MG TAB.ER.24H PO SCH (12:00)
[2021-11-04] MEDS: ISOSORBIDE MONONITRATE ER 60 MG TAB.ER.24H PO SCH (12:00)
[2021-11-04] MEDS: CLOPIDOGREL 75 MG TAB PO SCH (12:00)
[2021-11-04] MEDS: ASPIRIN 81 MG PO SCH (12:00)
[2021-11-04] MEDS: LEVOTHYROXINE 50 MCG TAB PO SCH (15:05)
[2021-11-04] MEDS: ATORVASTATIN 40 MG TAB PO SCH (19:49)
[2021-11-04] MEDS: lisinopriL 5 MG TAB PO SCH (19:49)
[2021-11-05] MEDS: FUROSEMIDE 10 MG/ML 4 ML VIAL IV SCH ×2 (05:48→18:04)
[2021-11-05] MEDS: LEVOTHYROXINE 50 MCG TAB PO SCH (05:50)
[2021-11-05] MEDS ORDERED: ASPIRIN 81 MG PO SCH (09:00)
[2021-11-05] MEDS: ASPIRIN 81 MG PO SCH (09:06)
[2021-11-05] MEDS: METOPROLOL SUCCINATE (ER) 25 MG TAB.ER.24H PO SCH (09:06)
[2021-11-05] MEDS: CLOPIDOGREL 75 MG TAB PO SCH (09:06)
[2021-11-05] MEDS: ISOSORBIDE MONONITRATE ER 60 MG TAB.ER.24H PO SCH (09:06)
[2021-11-05] MEDS: NITROGLYCERIN OINT 1 INCH/GM PACKET TOPICAL SCH ×4 (09:09→20:10)
[2021-11-05] MEDS ORDERED: diphenhydrAMINE 50 MG/ML 1 ML VIAL ONE (09:48)
--- NOTE | 2021-11-05 09:54 | P.HPIM ---
History of Present Illness H&P Date: 11/04/21 Chief Complaint: Shortness of breath 89-year-old woman who presents to be evaluated for dyspnea. Patient states that there may have been a little bit of it yesterday but she really noticed it becoming prominent after she had tried to go to bed. The breathing is a little worse lying flat. She does have history of congestive heart failure this feels similar. She has not noted fever or chills. No productive cough. No change in urination or bowel movements. No leg pain or swelling. Blood work completed in ED reveals a WBC of 11.2, hemoglobin 14.0 and platelet count of 218, sodium 141, potassium 4.0, BUN/creatinine of 16/1.10 and blood glucose of 128; total bilirubin is elevated at 1.8; d-dimer of 1.38; troponin of 0.021 and BNP of 3970 EKG shows normal: sinus rhythm, intervals (Prolonged QRS consistent with left bundle branch block.), QRS complexes ((Bundle-branch block) Chest x-ray reveals increased pulmonary edema compared to old exam likely related to acute CHF worsening interstitial chronic pneumonia also possibility; Review of Systems REVIEW OF SYSTEMS: CONSTITUTIONAL: No fever, no malaise, no fatigue. HEENT: No recent visual problems or hearing problems. Denied any sore throat. CARDIOVASCULAR: No chest pain, orthopnea, PND, no palpitations, no syncope. PULMONARY: No shortness of breath, no cough, no hemoptysis. GASTROINTESTINAL: No diarrhea, no nausea, no vomiting, no abdominal pain. NEUROLOGICAL: No headaches, no weakness, no numbness. HEMATOLOGICAL: Denies any bleeding or petechiae. GENITOURINARY: Denies any burning micturition, frequency, or urgency. MUSCULOSKELETAL/RHEUMATOLOGICAL: Denies any joint pain, swelling, or any muscle pain. ENDOCRINE: Denies any polyuria or polydipsia. The rest of the 14-point review of systems is negative. Past Medical History Past Medical History: Diabetes Mellitus, Hypertension, Osteoarthritis (OA), Thyroid Disorder Additional Past Medical History / Comment(s): Currently being treated for UTI/abx, diabetes/diet controlled/"pre", arthritis R hand and in back, back pain, hypothyroid, diverticular disease/benign colon polyp, urinary i ncontinence. History of Any Multi-Drug Resistant Organisms: None Reported Past Surgical History: Adenoidectomy, Cholecystectomy, Heart Catheterization With Stent, Orthopedic Surgery, Tonsillectomy Additional Past Surgical History / Comment(s): 06/29/21 PCI with 2 stents to RCA, R rotator cuff repair, L carpal tunnel release, R foot bone spur removed, R thumb trigger finger surgery, colonoscopies/polypectomies, D&Cs, bilateral cataract removals. Past Anesthesia/Blood Transfusion Reactions: No Reported Reaction Date of Last Stent Placement:: 06/29/21 Past Psychological History: No Psychological Hx Reported Smoking Status: Former smoker Past Alcohol Use History: None Reported Past Drug Use History: None Reported - Past Family History Father Additional Family Medical History / Comment(s): Father had back surgery Mother Family Medical History: Congestive Heart Failure (CHF) Additional Family Medical History / Comment(s): Mother from chf. Medications and Allergies Home Medications Medication Instructions Recorded Confirmed Type Levothyroxine Sodium [Synthroid] 50 mcg PO DAILY 08/26/18 11/04/21 History Atorvastatin [Lipitor] 40 mg PO HS #30 tab 07/03/21 11/04/21 Rx Clopidogrel [Plavix] 75 mg PO DAILY #30 tab 07/03/21 11/04/21 Rx Isosorbide Mononitrate ER [Imdur] 60 mg PO DAILY #30 tablet 07/03/21 11/04/21 Rx Metoprolol Succinate (ER) [Toprol 12.5 mg PO DAILY #30 07/03/21 11/04/21 Rx XL] Nitroglycerin Sl Tabs [Nitrostat] 0.4 mg SUBLINGUAL Q5M PRN #30 tab 07/03/21 11/04/21 Rx Aspirin 81 mg PO DAILY 11/04/21 11/04/21 History Furosemide [Lasix] 40 mg PO DAILY 11/04/21 11/04/21 History lisinopriL [Zestril] 5 mg PO DAILY 11/04/21 11/04/21 History Allergies Allergy/AdvReac Type Severity Reaction Status Date / Time acetaminophen [From Lortab] AdvReac Rash/Hives Verified 11/04/21 07:24 amoxicillin AdvReac Nausea & Verified 11/04/21 07:24 Vomiting ciprofloxacin AdvReac Rash/Hives Verified 11/04/21 07:24 hydrocodone [From Lortab] AdvReac Rash/Hives Verified 11/04/21 07:24 NSAIDS (Non-Steroidal AdvReac KIDNEY Verified 11/04/21 07:24 Anti-Inflamma PROBLEMS Physical Exam Vitals: Vital Signs Temp Pulse Resp BP Pulse Ox 11/04/21 05:05 98.1 F 87 18 168/94 94 L 11/04/21 02:33 81 22 153/132 97 11/04/21 01:08 97.5 F L 91 18 161/92 95 Intake and Output 11/03/21 11/04/21 11/04/21 22:59 06:59 14:59 Other: Weight 61.235 kg PHYSICAL EXAMINATION: GENERAL: The patient is alert and oriented x3, not in any acute distress. Well developed, well nourished. HEENT: Pupils are round and equally reacting to light. EOMI. No scleral icterus. No conjunctival pallor. Normocephalic, atraumatic. No pharyngeal erythema. No thyromegaly. CARDIOVASCULAR: S1 and S2 present. No murmurs, rubs, or gallops. PULMONARY: Chest is clear to auscultation, no wheezing or crackles. ABDOMEN: Soft, nontender, nondistended, normoactive bowel sounds. No palpable organomegaly. MUSCULOSKELETAL: No joint swelling or deformity. EXTREMITIES: No cyanosis, clubbing, or pedal edema. NEUROLOGICAL: Gross neurological examination did not reveal any focal deficits. SKIN: No rashes. Results CBC & Chem 7: 11/04/21 03:00 11/04/21 03:00 Labs: Abnormal Lab Results - Last 24 Hours (Table) 11/04/21 11/04/21 11/04/21 Range/Units 03:00 03:00 03:00 WBC 11.2 H (3.8-10.6) k/uL RDW 16.8 H (11.5-15.5) % Neutrophils # 8.1 H (1.3-7.7) k/uL D-Dimer 1.38 H (<0.60) mg/L FEU Chloride 108 H (98-107) mmol/L Creatinine 1.10 H (0.52-1.04) mg/dL Glucose 128 H (74-99) mg/dL Total Bilirubin 1.8 H (0.2-1.3) mg/dL Assessment and Plan Assessment: 1. Acute exacerbation CHF - Patient has been placed on Lasix 40 mg IV every 12 hours; we will monitor strict KAMERON's, daily weights; low-salt and fluid restricted diet - Recommend 2-D echo; consult cardiology 2. Mild renal injury; we will hold off on fluid hydration secondary to CHF exacerbation; we will monitor renal function and electrolytes closely; we will avoid hypotension and nephrotoxins; patient has been restarted on home dose of lisinopril 5 mg daily which will be placed on hold if renal function deteriorates 3. Hypertension; stable on home dose of Imdur 60 mg daily, lisinopril 5 mg by mouth daily at bedtime, metoprolol 12.5 mg daily 4. Hyperlipidemia; Lipitor 40 mg by mouth daily at bedtime 5. Hypothyroidism; levothyroxine 50 MCG daily 6. CAD/CHF; continue with aspirin, statins, Plavix and Imdur; Lasix has been switched to IV DVT prophylaxis; SCDs CODE STATUS; full code
[2021-11-05] MEDS ORDERED: diphenhydrAMINE 50 MG/ML 1 ML VIAL IVP STA (09:55)
[2021-11-05] MEDS ORDERED: MORPHINE SULFATE 2 MG/ML SYRINGE IVP STA (09:56)
[2021-11-05] MEDS ORDERED: methylPREDNISolone SOD SUCCI 125 MG/2 ML VIAL IVP ONE (10:00)
[2021-11-05] MEDS ORDERED: HEPARIN SODIUM 1,000 UN/ML (10ML VL) IV PRN (10:35)
[2021-11-05] MEDS ORDERED: HEPARIN SODIUM 1,000 UN/ML (10ML VL) IV ONE (10:35)
--- NOTE | 2021-11-05 10:38 | P.EN ---
Rapid response was called on patient due to complaints of chest pain. Patient was receiving echocardiogram and had received IV dye medication following this administration patient started to report complaints of chest pain and patient became hypotensive. She was also complaining of itchy and erythema was noted around patient's face. Patient was given stat doses of IV Benadryl and IV Solu- Medrol as well as IV morphine 2 mg due to patient's complaint of pain. Cardiology team was also at bedside. Stat EKG was ordered which was reviewed. IV fluid bolus was ordered. Patient blood pressure did improve following ongoing IV fluid administration. Nursing staff notified to place IV dye as ALLERGY. Nursing staff notified to follow-up with attending provider for patient for further orders.
[2021-11-05] MEDS ORDERED: HEPARIN SOD,PORK IN 0.45% NACL 25,000 UNIT in 0.45% NACL 1 250ML.BAG IV SCH (10:45)
--- NOTE | 2021-11-05 11:17 | CA ---
Transthoracic Echo Report Name: Danya Bennett Age: 89 Gender: F : 1930 Exam Date: 11/05/2021 09:27 Exam Location: [facility] Ht (in): 62 Wt (lb): 123 Ordering Physician: Angie Alexander Attending/Referring Phys: [employer] Sulma Hoffman RDCS Procedure CPT: Indications: chf Cardiac Hx: Technical Quality: Fair Contrast 1: Lumason Total Dose (mL): 0.5 Contrast 2: Total Dose (mL): MEASUREMENTS (Male / Female) Normal Values 2D ECHO LV Diastolic Diameter PLAX 2.7 cm 4.2 - 5.9 / 3.9 - 5.3 cm LV Systolic Diameter PLAX 2.2 cm IVS Diastolic Thickness 1.2 cm 0.6 - 1.0 / 0.6 - 0.9 cm LVPW Diastolic Thickness 1.0 cm 0.6 - 1.0 / 0.6 - 0.9 cm LV Relative Wall Thickness 0.8 M-MODE Aortic Root Diameter MM 3.2 cm LA Systolic Diameter MM 2.1 cm LA Ao Ratio MM 0.7 MV E Point Septal Separation 2.9 cm AV Cusp Separation MM 1.8 cm DOPPLER AV Peak Velocity 81.0 cm/s AV Peak Gradient 2.6 mmHg MV Area PHT 4.6 cm??? MR Peak Velocity 251.4 cm/s MR Peak Gradient 25.3 mmHg Mitral E Point Velocity 47.5 cm/s Mitral A Point Velocity 76.3 cm/s Mitral E to A Ratio 0.6 MV Deceleration Time 166.7 ms MV E' Velocity 2.8 cm/s Mitral E to MV E' Ratio 17.0 TR Peak Velocity 173.2 cm/s TR Peak Gradient 12.0 mmHg Right Ventricular Systolic Press 15.9 mmHg FINDINGS Left Ventricle Mildly increased septal wall thickness. Left ventricular ejection fraction is estimated at 20-25_ %. Global hypokinesis Right Ventricle Right Atrium Left Atrium Mitral Valve Aortic Valve Tricuspid Valve Pulmonic Valve Pericardium No pericardial effusion. 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 Alex Bonilla MD (Electronically Signed) Final Date: 05 Nov 2021 11:16
[2021-11-05 11:46] LABS: Anisocytosis Slight; Basophils % (A) 0 %; Eosinophils # (A) 0.1 k/uL (0-0.7); Eosinophils % (A) 1 %; HCT 50.5 % (34.0-46.0); Lymphocytes % (A) 14 %; MCH 29.9 pg (25.0-35.0); MCHC 31.6 g/dL (31.0-37.0); MCV 94.6 fL (80.0-100.0); Mean Platelet Volume 9.8; Monocytes # (A) 0.4 k/uL (0-1.0); Monocytes % (A) 2 %; Neutrophils # (A) 12.1 k/uL (1.3-7.7); Neutrophils % (A) 83 %; Platelet Count 252 k/uL (150-450); RBC 5.34 m/uL (3.80-5.40); RDW 16.6 % (11.5-15.5); WBC 14.6 k/uL (3.8-10.6)
[2021-11-05 11:55] LABS: African American GFR (CKD) 38 (>60 ml/min/1.73 sqM); Anion Gap 12 mmol/L; Blood Urea Nitrogen 21 mg/dL (7-17); Calcium 8.5 mg/dL (8.4-10.2); Carbon Dioxide 23 mmol/L (22-30); Chloride 105 mmol/L (98-107); Glucose 202 mg/dL (74-99); Non-African American GFR(CKD) 33 (>60 ml/min/1.73 sqM); Potassium 3.5 mmol/L (3.5-5.1); Sodium 140 mmol/L (137-145)
--- NOTE | 2021-11-05 11:58 | CONS ---
LIBBY Hagan is an 89-year-old lady with history of coronary artery disease, status post inferior wall myocardial infarction, ischemic cardiomyopathy, hypertension and dyslipidemia who presents to hospital with shortness of breath. She was found to be in congestive heart failure with pulmonary congestion on chest x-ray and elevated BNP. She is being treated with IV Lasix. She also has a mildly elevated D-dimer. The primary has started her on IV heparin and is currently doing a V/Q scan to rule out pulmonary embolism. The patient had an echocardiogram this morning and received a contrast agent to enhance endocardial visualization, to which she had a reaction. The patient became hypotensive, diaphoretic and had urticaria. She was treated with intravenous Benadryl, Solu-Medrol and IV fluids, with which she has recovered. Subsequently her blood pressure has normalized and her symptoms have improved. She had an echocardiogram this morning. I am going to review the results. Will treat her for the heart failure and make a decision on her further workup and treatment. Patient prior to coming to hospital was actually in [place] for two weeks. She went on a trip through her congregational. She tells me that while coming back from [facility] she had an episode of syncope. She was in the airport and then suddenly she passed out, fell on her face. She has extensive ecchymosis on her face and on the left forearm. She apparently had been investigated, including CT scan of the brain, and was told her workup is negative. At the time of my evaluation she appears comfortable at rest. She is not in respiratory distress. PAST MEDICAL HISTORY: Significant for coronary artery disease, status post inferior wall myocardial infarction, catheterization and angioplasty, cardiomyopathy, hypertension, dyslipidemia. MEDICATIONS: Medications at home included lisinopril 5 daily, sublingual nitroglycerine on p.r.n. basis, Toprol XL, Synthroid, Imdur, Lasix, Plavix, Lipitor and aspirin. ALLERGIES: NSAIDS, CIPRO, AMOXACILLIN, LORTAB AND SULFA. FAMILY HISTORY: Negative for premature coronary artery disease. SOCIAL HISTORY: Negative for smoking, EtOH abuse or drug abuse. REVIEW OF SYSTEMS: HEENT is unremarkable. CARDIAC: As described above. RESPIRATORY: As described above. GI: Negative. GENITOURINARY: Negative. ALLERGY/IMMUNOLOGY: Negative. SKIN: Negative. MUSCULOSKELETAL: Significant for arthritis. PSYCHOSOCIAL: Negative. DERMATOLOGY: Negative. CONSTITUTIONAL: Significant for fatigue, tiredness, not feeling well. Rest of the system review is not relevant. PHYSICAL EXAMINATION: She is comfortable at rest. Afebrile. Heart rate is 76 beats per minute. Blood pressure is 132/68, respiratory rate 18. Chest exam reveals good air entry bilaterally. Heart exam reveals first and second heart sounds and a systolic murmur at the apex. Abdomen is soft. Examination of extremities did not reveal any edema. Peripheral pulses are felt. She has ecchymosis involving her face. LABS: Lab show that the hemoglobin is normal at 14, platelet count is 218, potassium is 4, creatinine is 1.1, BUN is 16. BNP is elevated at 3970. AST, ALT are within normal limits. EKG shows sinus rhythm with left bundle branch block. Chest x-ray showed evidence of pulmonary congestion. ASSESSMENT: 1. Acute-onset systolic heart failure. 2. Ischemic cardiomyopathy. 3. Coronary artery disease, status post inferior wall myocardial infarction. 4. Recent history of syncope either due to an episode of ventricular tachycardia or could be related to orthostatic hypotension. 5. Allergic reaction to the contrast agent. PLAN: I will treat the patient with IV Lasix. Continue the aspirin, Plavix, Lipitor, Zestril and Toprol that she is currently on. I will stop the nitro paste, discontinue the Imdur that she is currently on. We will treat her, give her Claritin for the next 3 days and give her oral prednisone for the next 48 hours UA on her. MMODL / IJN: [id number] /
[2021-11-05] MEDS: MIDODRINE 5 MG TAB PO SCH ×2 (12:22→18:05)
[2021-11-05 12:25] LABS: Partial Thromboplastin Time 22.8 sec (22.0-30.0)
[2021-11-05] MEDS ORDERED: predniSONE 10 MG TAB PO STA (12:35)
[2021-11-05] MEDS: LORATADINE 10 MG TAB PO SCH (13:55)
--- NOTE | 2021-11-05 15:24 | NM ---
EXAMINATION TYPE: NM pul vent and perfuse DATE OF EXAM: 11/05/2021 COMPARISON: NONE HISTORY: TECHNIQUE: Utilizing inhalation of 69.1 mCi Tc 99m DTPA aerosol and intravenous injection of 5.1 mCi of Tc 99m MAA, ventilation and perfusion images are acquired post injection in multiple projections. FINDINGS: There are small matching subsegmental perfusion ventilation defect in the superior segment left lower lobe. Chest x-ray yesterday shows pulmonary interstitial edema. There is no ventilation/perfusion mi smatch. The Remaining lung patel show fairly normal Perfusion. IMPRESSION: There is low probability of pulmonary embolism.
--- NOTE | 2021-11-05 17:06 | P.PN ---
Subjective Progress Note Date: 11/05/21 89-year-old woman who presents to be evaluated for dyspnea. Patient states that there may have been a little bit of it yesterday but she really noticed it becoming prominent after she had tried to go to bed. The breathing is a little worse lying flat. She does have history of congestive heart failure this feels similar. She has not noted fever or chills. No productive cough. No change in urination or bowel movements. No leg pain or swelling. Blood work completed in ED reveals a WBC of 11.2, hemoglobin 14.0 and platelet count of 218, sodium 141, potassium 4.0, BUN/creatinine of 16/1.10 and blood glucose of 128; total bilirubin is elevated at 1.8; d-dimer of 1.38; troponin of 0.021 and BNP of 3970 EKG shows normal: sinus rhythm, intervals (Prolonged QRS consistent with left bundle branch block.), QRS complexes ((Bundle-branch block) Chest x-ray reveals increased pulmonary edema compared to old exam likely related to acute CHF worsening interstitial chronic pneumonia also possibility 11/05/2021 Patient had episode of hypotension which improved somewhat with fluid bolus; patient did complain of chest pain which started while patient was receiving IV dye during echocardiogram; patient was evaluated by cardiology and was recommended IV Benadryl and Solu-Medrol along with morphine 2 mg IV for chest pain - Stat EKG was completed which remained unchanged - We will transfer patient to PCU for further telemetry monitoring; d-dimer was found to be elevated yesterday; we will place patient on IV heparin per protocol and order a VQ scan Objective - Vital Signs Vital signs: Vital Signs Temp 97.9 F 11/05/21 05:00 Pulse 76 11/05/21 09:03 Resp 18 11/05/21 05:00 BP 154/63 11/05/21 09:03 Pulse Ox 96 11/05/21 09:03 FiO2 Intake & Output 11/04/21 11/05/21 11/05/21 18:59 06:59 18:59 Intake Total 200 Balance 200 Weight 60 kg 56 kg Intake: Oral 200 Other: # Voids 3 - Exam PHYSICAL EXAMINATION: GENERAL: The patient is alert and oriented x3, not in any acute distress. Well developed, well nourished. HEENT: Pupils are round and equally reacting to light. EOMI. No scleral icterus. No conjunctival pallor. Normocephalic, atraumatic. No pharyngeal erythema. No thyromegaly. CARDIOVASCULAR: S1 and S2 present. No murmurs, rubs, or gallops. PULMONARY: Chest is clear to auscultation, no wheezing or crackles. ABDOMEN: Soft, nontender, nondistended, normoactive bowel sounds. No palpable organomegaly. MUSCULOSKELETAL: No joint swelling or deformity. EXTREMITIES: No cyanosis, clubbing, or pedal edema. NEUROLOGICAL: Gross neurological examination did not reveal any focal deficits. SKIN: No rashes. - Labs CBC & Chem 7: 11/05/21 11:16 11/05/21 11:16 Assessment and Plan Assessment: 1. Acute exacerbation CHF - Patient has been placed on Lasix 40 mg IV every 12 hours; we will monitor strict KAMERON's, daily weights; low-salt and fluid restricted diet - Recommend 2-D echo; consult cardiology 2. Mild renal injury; we will hold off on fluid hydration secondary to CHF exacerbation; we will monitor renal function and electrolytes closely; we will avoid hypotension and nephrotoxins; patient has been restarted on home dose of lisinopril 5 mg daily which will be placed on hold if renal function deteriorates 3. Hypertension; stable on home dose of Imdur 60 mg daily, lisinopril 5 mg by mouth daily at bedtime, metoprolol 12.5 mg daily 4. Hyperlipidemia; Lipitor 40 mg by mouth daily at bedtime 5. Hypothyroidism; levothyroxine 50 MCG daily 6. CAD/CHF; continue with aspirin, statins, Plavix and Imdur; Lasix has been switched to IV DVT prophylaxis; SCDs CODE STATUS; full code
[2021-11-05] MEDS: ATORVASTATIN 40 MG TAB PO SCH (20:09)
[2021-11-05] MEDS: lisinopriL 5 MG TAB PO SCH (20:09)
[2021-11-06 04:59] LABS: Anisocytosis Slight; Basophils % (A) 0 %; Eosinophils # (A) 0.1 k/uL (0-0.7); Eosinophils % (A) 1 %; HCT 41.5 % (34.0-46.0); HGB 13.1 gm/dL (11.4-16.0); Lymphocytes # (A) 2.1 k/uL (1.0-4.8); Lymphocytes % (A) 11 %; MCH 29.7 pg (25.0-35.0); MCHC 31.6 g/dL (31.0-37.0); MCV 93.8 fL (80.0-100.0); Mean Platelet Volume 10.1; Monocytes # (A) 0.3 k/uL (0-1.0); Monocytes % (A) 2 %; Neutrophils # (A) 16.8 k/uL (1.3-7.7); Neutrophils % (A) 86 %; Platelet Count 229 k/uL (150-450); RBC 4.42 m/uL (3.80-5.40); RDW 16.5 % (11.5-15.5); WBC 19.5 k/uL (3.8-10.6)
[2021-11-06 05:33] LABS: Calcium 8.7 mg/dL (8.4-10.2); Potassium 4.4 mmol/L (3.5-5.1)
[2021-11-06] MEDS: LEVOTHYROXINE 50 MCG TAB PO SCH (06:52)
[2021-11-06] MEDS: FUROSEMIDE 10 MG/ML 4 ML VIAL IV SCH ×2 (06:52→15:58)
[2021-11-06] MEDS: MIDODRINE 5 MG TAB PO SCH ×3 (07:33→19:30)
[2021-11-06] MEDS: NITROGLYCERIN OINT 1 INCH/GM PACKET TOPICAL SCH ×4 (07:35→21:11)
[2021-11-06] MEDS: ISOSORBIDE MONONITRATE ER 60 MG TAB.ER.24H PO SCH (07:42)
[2021-11-06] MEDS: CLOPIDOGREL 75 MG TAB PO SCH (08:29)
[2021-11-06] MEDS: LORATADINE 10 MG TAB PO SCH (08:30)
[2021-11-06] MEDS: ASPIRIN 81 MG PO SCH (08:30)
[2021-11-06] MEDS: METOPROLOL SUCCINATE (ER) 25 MG TAB.ER.24H PO SCH (08:30)
[2021-11-06] MEDS ORDERED: predniSONE 20 MG TAB PO SCH (09:00)
--- NOTE | 2021-11-06 09:46 | P.PN ---
Subjective HISTORY OF PRESENTING ILLNESS Patient is pleasant 89-year-old female with history of CAD status post inferior wall [place], ischemic cardiopathy, hypertension, hyperlipidemia who presented with shortness breath. Chest x-ray showed pulmonary congestion and was found have elevated BNP and was started on IV Lasix. She did have a mildly elevated d-dimer and was started on heparin. She did have echocardiogram performed and received contrast with Lumason and had a reaction becoming hypotensive, diaphoretic with a rash. She was treated with Benadryl, steroids and IV fluids and appeared to improve. She states today she is feeling much better. She also had an episode of syncope while on a trip in [place] 2 weeks [place] at the airport and therefore has ecchymosis on her face. 11/06 Patient seen and examined. Patient feels much better. Blood pressure is normalized. Increased white blood cell count noted related to steroid use. She has been receiving diuretics and creatinine mildly increased to 1.47 may be related to hypotensive episode. VQ scan shows low probability of pulmonary mows him. Echocardiogram shows EF 20-25%. Findings may be related to Takotsubo's cardiomyopathy. PHYSICAL EXAMINATION Vital signs reviewed. CONSTITUTIONAL: No apparent distress. HEENT: Head is normocephalic. Pupils are equal, round. Sclerae anicteric. Mucous membranes of the mouth are moist. No JVD. No carotid bruit. CHEST EXAMINATION: Lungs are clear to auscultation. No chest wall tenderness is noted on palpation or with deep breathing. HEART EXAMINATION: Regular rate and rhythm. S1, S2 heard. No murmurs, gallops or rub. ABDOMEN: Soft, nontender. Positive bowel sounds. EXTREMITIES: 2+ peripheral pulses, no lower extremity edema and no calf tenderness. NEUROLOGIC EXAMINATION: Patient is awake, alert and oriented x3. ASSESSMENT 1. Acute on chronic systolic heart failure 2. 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 Coronary artery disease with prior history of inferior [place] 4. [place], rule out arrhythmogenic versus orthostatic versus vasovagal 5. ALLERGIC reaction to Lumason 6. Acute kidney injury PLAN Patient with ALLERGIC reaction to Lumason from echo contrast. Appears to be recovering. Mild increasing creatinine. Optimize heart failure regimen as able. No evidence of any acute coronary syndrome. Continue with diuretics and monitor response. Objective - Vital Signs Vital signs: Vital Signs Temp 97.4 F L 11/06/21 08:25 Pulse 63 11/06/21 08:25 Resp 12 11/06/21 08:25 BP 127/64 11/06/21 08:25 Pulse Ox 94 L 11/06/21 08:25 FiO2 Intake & Output 11/05/21 11/06/21 11/06/21 18:59 06:59 18:59 Intake Total 490 123.256 Balance 490 123.256 Intake: Intake, IV Titration 10 123.256 Amount Heparin Sod,Pork in 0.45% 10 123.256 NaCl 25,000 unit In 0.45 % NaCl 1 250ml.bag @ 18 UNITS/KG/HR 10.08 mls/hr IV .Q24H [facility] Rx#: [id number] Oral 480 Other: Voiding Method Toilet Diaper # Voids 1 - Labs CBC & Chem 7: 11/06/21 04:48 11/06/21 04:48 Labs: Abnormal Lab Results - Last 24 Hours (Table) 11/05/21 11/05/21 11/05/21 Range/Units 11:16 11:16 19:31 WBC 14.6 H (3.8-10.6) k/uL Hct 50.5 H (34.0-46.0) % RDW 16.6 H (11.5-15.5) % Neutrophils # 12.1 H (1.3-7.7) k/uL APTT >200.0 H* (22.0-30.0) sec Sodium (137-145) mmol/L Carbon Dioxide (22-30) mmol/L BUN 21 H (7-17) mg/dL Creatinine 1.43 H (0.52-1.04) mg/dL Glucose 202 H (74-99) mg/dL 11/06/21 11/06/21 11/06/21 Range/Units 04:48 04:48 04:48 WBC 19.5 H (3.8-10.6) k/uL Hct (34.0-46.0) % RDW 16.5 H (11.5-15.5) % Neutrophils # 16.8 H (1.3-7.7) k/uL APTT 97.0 H (22.0-30.0) sec Sodium 135 L (137-145) mmol/L Carbon Dioxide 21 L (22-30) mmol/L BUN 31 H (7-17) mg/dL Creatinine 1.47 H (0.52-1.04) mg/dL Glucose 197 H (74-99) mg/dL
[2021-11-06 17:54] VITALS: BMI 22.6
--- NOTE | 2021-11-06 18:31 | P.PN ---
Subjective Progress Note Date: 11/06/21 Principal diagnosis: Acute on chronic systolic heart failure Cardiomyopathy EF 25-30% 89-year-old woman who presents to be evaluated for dyspnea. Patient states that there may have been a little bit of it yesterday but she really noticed it becoming prominent after she had tried to go to bed. The breathing is a little worse lying flat. She does have history of congestive heart failure this feels similar. She has not noted fever or chills. No productive cough. No change in urination or bowel movements. No leg pain or swelling. Blood work completed in ED reveals a WBC of 11.2, hemoglobin 14.0 and platelet count of 218, sodium 141, potassium 4.0, BUN/creatinine of 16/1.10 and blood glucose of 128; total bilirubin is elevated at 1.8; d-dimer of 1.38; troponin of 0.021 and BNP of 3970 EKG shows normal: sinus rhythm, intervals (Prolonged QRS consistent with left bundle branch block.), QRS complexes ((Bundle-branch block) Chest x-ray reveals increased pulmonary edema compared to old exam likely related to acute CHF worsening interstitial chronic pneumonia also possibility 11/05/2021 Patient had episode of hypotension which improved somewhat with fluid bolus; patient did complain of chest pain which started while patient was receiving IV dye during echocardiogram; patient was evaluated by cardiology and was recommended IV Benadryl and Solu-Medrol along with morphine 2 mg IV for chest pain - Stat EKG was completed which remained unchanged - We will transfer patient to PCU for further telemetry monitoring; d-dimer was found to be elevated yesterday; we will place patient on IV heparin per protocol and order a VQ scan 11/06/2021 Patient is seen and evaluated in room with daughter at bedside; reports feeling markedly improved Echocardiogram is completed and reveals an EF of 20-25%; findings might be related to Takotsubo's cardiomyopathy; cardiology on board and recommending to continue with IV diuretic therapy as indicated; no concern about any acute coronary syndrome VQ scan is completed and is low probability for PE; we will discontinue IV hep tatianna Objective - Vital Signs Vital signs: Vital Signs Temp 98.0 F 11/06/21 11:27 Pulse 66 11/06/21 11:27 Resp 14 11/06/21 11:27 BP 130/68 11/06/21 11:27 Pulse Ox 99 05/29/22 11:27 FiO2 Intake & Output 11/05/21 11/06/21 11/06/21 18:59 06:59 18:59 Intake Total 490 123.256 Balance 490 123.256 Intake: Intake, IV Titration 10 123.256 Amount Heparin Sod,Pork in 0.45% 10 123.256 NaCl 25,000 unit In 0.45 % NaCl 1 250ml.bag @ 18 UNITS/KG/HR 10.08 mls/hr IV .[facility]H [facility] Rx#: [id number] Oral 480 Other: Voiding Method Toilet Diaper # Voids 1 - Exam PHYSICAL EXAMINATION: GENERAL: The patient is alert and oriented x3, not in any acute distress. Well developed, well nourished. HEENT: Pupils are round and equally reacting to light. EOMI. No scleral icterus. No conjunctival pallor. Normocephalic, atraumatic. No pharyngeal erythema. No thyromegaly. CARDIOVASCULAR: S1 and S2 present. No murmurs, rubs, or gallops. PULMONARY: Chest is clear to auscultation, no wheezing or crackles. ABDOMEN: Soft, nontender, nondistended, normoactive bowel sounds. No palpable organomegaly. MUSCULOSKELETAL: No joint swelling or deformity. EXTREMITIES: No cyanosis, clubbing, or pedal edema. NEUROLOGICAL: Gross neurological examination did not reveal any focal deficits. SKIN: No rashes. - Labs CBC & Chem 7: 11/06/21 04:48 11/06/21 04:48 Labs: Abnormal Lab Results - Last 24 Hours (Table) 11/05/21 11/06/21 11/06/21 Range/Units 19:31 04:48 04:48 WBC 19.5 H (3.8-10.6) k/uL RDW 16.5 H (11.5-15.5) % Neutrophils # 16.8 H (1.3-7.7) k/uL APTT >200.0 H* (22.0-30.0) sec Sodium 135 L (137-145) mmol/L Carbon Dioxide 21 L (22-30) mmol/L BUN 31 H (7-17) mg/dL Creatinine 1.47 H (0.52-1.04) mg/dL Glucose 197 H (74-99) mg/dL 11/06/21 Range/Units 04:48 WBC (3.8-10.6) k/uL RDW (11.5-15.5) % Neutrophils # (1.3-7.7) k/uL APTT 97.0 H (22.0-30.0) sec Sodium (137-145) mmol/L Carbon Dioxide (22-30) mmol/L BUN (7-17) mg/dL Creatinine (0.52-1.04) mg/dL Glucose (74-99) mg/dL Assessment and Plan Assessment: 1. Acute exacerbation CHF - Patient has been placed on Lasix 40 mg IV every 12 hours; we will monitor strict KAMERON's, daily weights; low-salt and fluid restricted diet - Recommend 2-D echo; consult cardiology 2. Mild renal injury; we will hold off on fluid hydration secondary to CHF exacerbation; we will monitor renal function and electrolytes closely; we will avoid hypotension and nephrotoxins; patient has been restarted on home dose of lisinopril 5 mg daily which will be placed on hold if renal function deteriorates 3. Hypertension; stable on home dose of Imdur 60 mg daily, lisinopril 5 mg by mouth daily at bedtime, metoprolol 12.5 mg daily 4. Hyperlipidemia; Lipitor 40 mg by mouth daily at bedtime 5. Hypothyroidism; levothyroxine 50 MCG daily 6. CAD/CHF; continue with aspirin, statins, Plavix and Imdur; Lasix has been switched to IV DVT prophylaxis; SCDs CODE STATUS; full code
[2021-11-06] MEDS: ATORVASTATIN 40 MG TAB PO SCH (21:17)
[2021-11-06] MEDS: lisinopriL 5 MG TAB PO SCH (21:17)
[2021-11-07] MEDS: MIDODRINE 5 MG TAB PO SCH (06:26)
[2021-11-07] MEDS: LEVOTHYROXINE 50 MCG TAB PO SCH (06:26)
[2021-11-07] MEDS: FUROSEMIDE 10 MG/ML 4 ML VIAL IV SCH (06:26)
--- NOTE | 2021-11-07 08:23 | P.PN ---
Subjective HISTORY OF PRESENTING ILLNESS Patient is pleasant 89-year-old female with history of CAD status post inferior wall [place], ischemic cardiopathy, hypertension, hyperlipidemia who presented with shortness breath. Chest x-ray showed pulmonary congestion and was found have elevated BNP and was started on IV Lasix. She did have a mildly elevated d-dime r and was started on heparin. She did have echocardiogram performed and received contrast with Lumason and had a reaction becoming hypotensive, diaphoretic with a rash. She was treated with Benadryl, steroids and IV fluids and appeared to improve. She states today she is feeling much better. She also had an episode of syncope while on a trip in [place] for 2 weeks while at the airport and therefore has ecchymosis on her face. 11/06 Patient seen and examined. Patient feels much better. Blood pressure is normalized. Increased white blood cell count noted related to steroid use. She has been receiving diuretics and creatinine mildly increased to 1.47 may be related to hypotensive episode. VQ scan shows low probability of pulmonary mows him. Echocardiogram shows EF 20-25%. Findings may be related to Takotsubo's cardiomyopathy. 11/07 Patient seen and examined. Patient has been receiving diuretics with mild increase in creatinine up to 1.47 yesterday which may been related to hy potensive episode. Blood work from this morning not resulted yet. PHYSICAL EXAMINATION Vital signs reviewed. CONSTITUTIONAL: No apparent distress. HEENT: Head is normocephalic. Pupils are equal, round. Sclerae anicteric. Mucous membranes of the mouth are moist. No JVD. No carotid bruit. CHEST EXAMINATION: Lungs are clear to auscultation. No chest wall tenderness is noted on palpation or with deep breathing. HEART EXAMINATION: Regular rate and rhythm. S1, S2 heard. No murmurs, gallops or rub. ABDOMEN: Soft, nontender. Positive bowel sounds. EXTREMITIES: 2+ peripheral pulses, no lower extremity edema and no calf tenderness. NEUROLOGIC EXAMINATION: Patient is awake, alert and oriented x3. ASSESSMENT 1. Acute on chronic systolic heart failure 2. 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 Coronary artery disease with prior history of inferior CA, residual 75% LAD 4. [place], rule out arrhythmogenic versus orthostatic versus vasovagal 5. ALLERGIC reaction to Lumason 6. Acute kidney injury PLAN Patient with ALLERGIC reaction to Lumason from echo contrast. Appears to be recovering. Changed to oral diuretics today. Follow-up with creatinine. Optimize heart failure regimen as able. Hopeful discharge in next 24 hours. Objective - Vital Signs Vital signs: Vital Signs Temp 97.7 F 11/07/21 03:10 Pulse 64 11/07/21 03:10 Resp 18 11/07/21 03:10 BP 134/70 11/07/21 06:25 Pulse Ox 97 11/07/21 03:10 FiO2 Intake & Output 11/06/21 11/07/21 11/07/21 18:59 06:59 18:59 Intake Total 120 Output Total 400 Balance -400 120 Weight 56 kg 62.5 kg Intake: Oral 120 Output: Urine 400 Other: Voiding Method Toilet Toilet Diaper Diaper # Voids 1 - Labs CBC & Chem 7: 11/06/21 04:48 11/06/21 04:48
[2021-11-07] MEDS: ASPIRIN 81 MG PO SCH (08:54)
[2021-11-07] MEDS: CLOPIDOGREL 75 MG TAB PO SCH (08:54)
[2021-11-07] MEDS: LORATADINE 10 MG TAB PO SCH (08:54)
[2021-11-07] MEDS: METOPROLOL SUCCINATE (ER) 25 MG TAB.ER.24H PO SCH (08:57)
[2021-11-07] MEDS ORDERED: predniSONE 10 MG TAB PO SCH (09:00)
[2021-11-07] MEDS ORDERED: ISOSORBIDE MONONITRATE ER 60 MG TAB.ER.24H PO SCH (09:00)
[2021-11-07 09:57] LABS: Anisocytosis Slight; Basophils % (A) 0 %; Eosinophils # (A) 0.1 k/uL (0-0.7); Eosinophils % (A) 0 %; HCT 40.8 % (34.0-46.0); HGB 12.8 gm/dL (11.4-16.0); Lymphocytes # (A) 2.4 k/uL (1.0-4.8); Lymphocytes % (A) 18 %; MCH 29.4 pg (25.0-35.0); MCHC 31.2 g/dL (31.0-37.0); MCV 94.1 fL (80.0-100.0); Mean Platelet Volume 10.9; Monocytes # (A) 0.5 k/uL (0-1.0); Monocytes % (A) 4 %; Neutrophils # (A) 9.8 k/uL (1.3-7.7); Neutrophils % (A) 76 %; Platelet Count 212 k/uL (150-450); RBC 4.34 m/uL (3.80-5.40); RDW 16.1 % (11.5-15.5); WBC 12.9 k/uL (3.8-10.6)
[2021-11-07 10:09] LABS: Albumin 3.9 g/dL (3.5-5.0); Calcium 8.8 mg/dL (8.4-10.2); Magnesium 1.7 mg/dL (1.6-2.3); Phosphorus 2.4 mg/dL (2.5-4.5); Potassium 3.4 mmol/L (3.5-5.1)
--- NOTE | 2021-11-07 10:53 | P.PN ---
Subjective 89-year-old woman who presents to be evaluated for dyspnea. Patient states that there may have been a little bit of it yesterday but she really noticed it becoming prominent after she had tried to go to bed. The breathing is a little worse lying flat. She does have history of congestive heart failure this feels similar. She has not noted fever or chills. No productive cough. No change in urination or bowel movements. No leg pain or swelling. Blood work completed in ED reveals a WBC of 11.2, hemoglobin 14.0 and platelet count of 218, sodium 141, potassium 4.0, BUN/creatinine of 16/1.10 and blood glucose of 128; total bilirubin is elevated at 1.8; d-dimer of 1.38; troponin of 0.021 and BNP of 3970 EKG shows normal: sinus rhythm, intervals (Prolonged QRS consistent with left bundle branch block.), QRS complexes ((Bundle-branch block) Chest x-ray reveals increased pulmonary edema compared to old exam likely related to acute CHF worsening interstitial chronic pneumonia also possibility 11/05/2021 Patient had episode of hypotension which improved somewhat with fluid bolus; patient did complain of chest pain which started while patient was receiving IV dye during echocardiogram; patient was evaluated by cardiology and was recommended IV Benadryl and Solu-Medrol along with morphine 2 mg IV for chest pain - Stat EKG was completed which remained unchanged - We will transfer patient to PCU for further telemetry monitoring; d-dimer was found to be elevated yesterday; we will place patient on IV heparin per protocol and order a VQ scan 11/06/2021 Patient is seen and evaluated in room with daughter at bedside; reports feeling markedly improved Echocardiogram is completed and reveals an EF of 20-25%; findings might be related to Takotsubo's cardiomyopathy; cardiology on board and recommending to continue with IV diuretic therapy as indicated; no concern about any acute coronary syndrome VQ scan is completed and is low probability for PE; we will discontinue IV heparin 11/07/2021, this is the first day I started taking care of the patient This is a pleasant 89 years old female with multiple medical problems presents with signs symptoms of acute systolic CHF, she has a low ejection fraction at 25-30%. Also with evidence of coronary artery disease and previous myocardial infarction. She was kept on IV Lasix and switched to oral Lasix 40 mg once daily today. She has minimal basilar crepitation and like edema and she is not dyspneic at rest or with exertion. No significant coughing or chest pain. No diarrhea. Patient denies any specific urinary symptoms. Patient also noticed to be on prednisone 10 mg daily. She is also on aspirin Plavix. Chest mild leukocytosis which may be due to steroid effect. However we need to rule out UTI, therefore we ordered urinalysis and bladder scan. Objective - Vital Signs Vital signs: Vital Signs Temp 97.4 F L 11/07/21 08:00 Pulse 69 11/07/21 08:00 Resp 18 11/07/21 08:00 BP 151/67 11/07/21 08:00 Pulse Ox 99 11/07/21 08:00 FiO2 Intake & Output 11/06/21 11/07/21 11/07/21 18:59 06:59 18:59 Intake Total 360 Output Total 400 Balance -400 360 Weight 56 kg 62.5 kg Intake: Oral 360 Output: Urine 400 Other: Voiding Method Toilet Toilet Toilet Diaper Diaper Diaper # Voids 1 1 - Exam GENERAL: The patient is alert and oriented x3, not in any acute distress. Well developed, well nourished. HEENT: Pupils are round and equally reacting to light. EOMI. No scleral icterus. No conjunctival pallor. Normocephalic, atraumatic. No pharyngeal erythema. No thyromegaly. CARDIOVASCULAR: S1 and S2 present. No murmurs, rubs, or gallops. -PULMONARY: Chest is clear to auscultation, no wheezing. Bilateral mild basal crepitation ABDOMEN: Soft, nontender, nondistended, normoactive bowel sounds. No palpable organomegaly. MUSCULOSKELETAL: No joint swelling or deformity. -EXTREMITIES: No cyanosis, clubbing,. Mild bilateral pitting leg edema NEUROLOGICAL: Gross neurological examination did not reveal any focal deficits. SKIN: No rashes. no petechiae. - Labs CBC & Chem 7: 11/07/21 09:46 11/07/21 09:46 Labs: Abnormal Lab Results - Last 24 Hours (Table) 11/07/21 11/07/21 Range/Units 09:46 09:46 WBC 12.9 H (3.8-10.6) k/uL RDW 16.1 H (11.5-15.5) % Neutrophils # 9.8 H (1.3-7.7) k/uL Potassium 3.4 L (3.5-5.1) mmol/L BUN 34 H (7-17) mg/dL Creatinine 1.31 H (0.52-1.04) mg/dL Glucose 211 H (74-99) mg/dL Phosphorus 2.4 L (2.5-4.5) mg/dL Assessment and Plan Assessment: Acute on chronic systolic CHF with ejection fraction of 25-30% Acute kidney injury secondary to diuresis Chronic kidney disease, stage III Recent history of syncope about 2 weeks prior to admission with perfusion scan showed low probability for PE. Leukocytosis, could be secondary to steroid effect causing redistribution of leukocytes, however we need to rule out UTI. Plan: This is a pleasant 89 years old female who presents with CHF and a KCI and leukocytosis. Continue with oral Lasix Founder [employer] Chief Executive Officer on the case. Check urinalysis and bladder scan. Labs and medication were reviewed.. Continue same treatment. Continue with symptomatic treatment. Resume home medication. Monitor lytes and vitals. DVT and GI prophylaxis. Further recommendationsas per clinical course of the patient DVT prophylaxis: Subcutaneous heparin GI Prophylaxis: Pepcid PT/OT: Pending Prognosis is guarded
[2021-11-07] MEDS ORDERED: POTASSIUM CHLORIDE ER 20 MEQ TAB.ER PO STA (14:04)
[2021-11-07] MEDS: ATORVASTATIN 40 MG TAB PO SCH (20:18)
[2021-11-07] MEDS: lisinopriL 5 MG TAB PO SCH (20:18)
[2021-11-08 05:14] LABS: Appearance,Urine Clear (Clear); Bacteria,Urine Moderate /hpf; Bilirubin,Urine Negative (Negative); Blood,Urine Negative (Negative); Color,Urine Light Yellow; Glucose,Urine (UA) Negative (Negative); Ketones,Urine Negative (Negative); Leukocyte Esterase,Urine Trace (Negative); Mucus,Urine Rare /hpf; Nitrite,Urine Negative (Negative); PH, Urine 5.5 (5.0-8.0); Protein,Urine Negative (Negative); RBC,Urine <1 /hpf (0-5); Specific Gravity,Urine 1.013 (1.001-1.035); Squamous Epithelial Cell,Urine 1 /hpf (0-4); Urobilinogen,Urine <2.0 mg/dL (<2.0); WBC,Urine 6 /hpf (0-5)
[2021-11-08] MEDS: LEVOTHYROXINE 50 MCG TAB PO SCH (06:29)
[2021-11-08 08:08] LABS: Anisocytosis Slight; Basophils # (A) 0.1 k/uL (0-0.2); Basophils % (A) 1 %; Eosinophils # (A) 0.2 k/uL (0-0.7); Eosinophils % (A) 1 %; HCT 39.8 % (34.0-46.0); HGB 12.3 gm/dL (11.4-16.0); Lymphocytes # (A) 3.9 k/uL (1.0-4.8); Lymphocytes % (A) 31 %; MCH 28.9 pg (25.0-35.0); MCV 93.2 fL (80.0-100.0); Mean Platelet Volume 10.6; Monocytes # (A) 0.7 k/uL (0-1.0); Monocytes % (A) 5 %; Neutrophils # (A) 7.7 k/uL (1.3-7.7); Neutrophils % (A) 61 %; Platelet Count 225 k/uL (150-450); RBC 4.27 m/uL (3.80-5.40); RDW 16.1 % (11.5-15.5); WBC 12.6 k/uL (3.8-10.6)
[2021-11-08 08:53] LABS: Calcium 8.7 mg/dL (8.4-10.2); Magnesium 1.8 mg/dL (1.6-2.3); Potassium 4.1 mmol/L (3.5-5.1)
[2021-11-08] MEDS ORDERED: FUROSEMIDE 40 MG TAB PO SCH (09:00)
[2021-11-08] MEDS: ASPIRIN 81 MG PO SCH (10:15)
[2021-11-08] MEDS: CLOPIDOGREL 75 MG TAB PO SCH (10:15)
[2021-11-08] MEDS: METOPROLOL SUCCINATE (ER) 25 MG TAB.ER.24H PO SCH (10:16)
[2021-11-08] MEDS: LORATADINE 10 MG TAB PO SCH (10:20)
--- NOTE | 2021-11-08 12:53 | P.PN ---
Subjective HISTORY OF PRESENTING ILLNESS Patient is pleasant 89-year-old female with history of CAD status post inferior wall KS, ischemic cardiopathy, hypertension, hyperlipidemia. She follows with Dr. Bonilla. She presented with shortness breath. Chest x-ray showed pulmonary congestion and was found have elevated BNP and was started on IV Lasix. She did have a mildly elevated d-dimer and was started on heparin. She did have echocardiogram performed and received contrast with Lumason and had a reaction becoming hypotensive, diaphoretic with a rash. She was treated with Benadryl, steroids and IV fluids and appeared to improve. VQ scan shows low probability of pulmonary mows him. Echocardiogram shows EF 20-25%. Findings may be related to Takotsubo's cardiomyopathy. 11/08/2021 Patient seen and examined. Patient feels much better. Blood pressure is normalized. She has been transitioned to PO Lasix. Renal function has improved. sCr 1.12. She is currently maintained on Lasix 40 mg daily, aspirin 80 mg daily, atorvastatin 40 mg nightly, lisinopril 5 mg nightly, metoprolol succinate 12.5 mg daily PHYSICAL EXAMINATION Vital signs reviewed. CONSTITUTIONAL: No apparent distress. HEENT: Neck Supple. No JVD. No carotid bruit. CHEST EXAMINATION: Lungs are clear to auscultation. No chest wall tenderness is noted on palpation or with deep breathing. HEART EXAMINATION: Regular rate and rhythm. S1, S2 heard. No murmurs, gallops or rub. ABDOMEN: Soft, nontender. Positive bowel sounds. EXTREMITIES: 2+ peripheral pulses, no lower extremity edema and no calf tenderness. NEUROLOGIC EXAMINATION: Patient is awake, alert and oriented x3. ASSESSMENT Acute on chronic heart failure with reduced ejection fraction Cardiomyopathy EF 20-25%, echo findings possibly consistent with Takotsubo's cardiomyopathy, previous EF 35% after recent STEMI 07/02 Coronary artery disease with prior history of inferior KS, residual 75% LAD ALLERGIC reaction to Lumason Acute kidney injury, improved. PLAN Patient with ALLERGIC reaction to Lumason from echo contrast. Appears to be recovering. Continue with oral diuretics Continue current medication regimen Patient is stable from a cardiology perspective for discharge. Follow up outpatient with Dr. Bonilla. Nurse practitioner note has been reviewed by physician. Signing provider agrees with the documented findings, assessment, and plan of care. Objective - Vital Signs Vital signs: Vital Signs Temp 97.8 F 05/31/22 12:00 Pulse 97 11/08/21 12:00 Resp 15 11/08/21 12:00 BP 137/78 11/08/21 12:00 Pulse Ox 97 11/08/21 12:00 FiO2 Intake & Output 11/07/21 11/08/21 11/08/21 18:59 06:59 18:59 Intake Total 598 360 Output Total 150 Balance 598 -150 360 Weight 62.6 kg Intake: Oral 598 360 Output: Urine 150 Other: Voiding Method Toilet Toilet Toilet Diaper Diaper Diaper # Voids 1 1 2 # Bowel Movements 0 - Labs CBC & Chem 7: 11/08/21 06:49 11/08/21 06:49 Labs: Abnormal Lab Results - Last 24 Hours (Table) 11/08/21 11/08/21 11/08/21 Range/Units 04:45 06:49 06:49 WBC 12.6 H (3.8-10.6) k/uL RDW 16.1 H (11.5-15.5) % BUN 31 H (7-17) mg/dL Creatinine 1.12 H (0.52-1.04) mg/dL Glucose 115 H (74-99) mg/dL Ur Leukocyte Esterase Trace H (Negative) Urine WBC 6 H (0-5) /hpf Urine WBC Clumps Rare H (None) /hpf Urine Bacteria Moderate H (None) /hpf Urine Mucus Rare H (None) /hpf
[2021-11-08 15:52] VITALS: BP 151/77; PULSE 66; RESP 14; TEMP 98.1
--- NOTE | 2021-11-09 10:28 | P.DS ---
Providers Date of admission: 11/04/21 05:00 Expected date of discharge: 11/08/21 Attending physician: Torres Warren Consults: 11/04/21 09:50 Consult Physician Urgent Consulting Provider: To Mariscal Consult Reason/Comments: chf Do you want consulting provider notified?: Yes Primary care physician: [facility] Course: 89-year-old woman who presents to be evaluated for dyspnea. Patient states that there may have been a little bit of it yesterday but she really noticed it becoming prominent after she had tried to go to bed. The breathing is a little worse lying flat. She does have history of congestive heart failure this feels similar. She has not noted fever or chills. No productive cough. No change in urination or bowel movements. No leg pain or swelling. Blood work completed in ED reveals a WBC of 11.2, hemoglobin 14.0 and platelet count of 218, sodium 141, potassium 4.0, BUN/creatinine of 16/1.10 and blood glucose of 128; total bilirubin is elevated at 1.8; d-dimer of 1.38; troponin of 0.021 and BNP of 3970 EKG shows normal: sinus rhythm, intervals (Prolonged QRS consistent with left bundle branch block.), QRS complexes ((Bundle-branch block) Chest x-ray reveals increased pulmonary edema compared to old exam likely related to acute CHF worsening interstitial chronic pneumonia also possibility 11/05/2021 Patient had episode of hypotension which improved somewhat with fluid bolus; patient did complain of chest pain which started while patient was receiving IV dye during echocardiogram; patient was evaluated by cardiology and was recommended IV Benadryl and Solu-Medrol along with morphine 2 mg IV for chest pain - Stat EKG was completed which remained unchanged - We will transfer patient to PCU for further telemetry monitoring; d-dimer was found to be elevated yesterday; we will place patient on IV heparin per protocol and order a VQ scan 11/06/2021 Patient is seen and evaluated in room with daughter at bedside; reports feeling markedly improved Echocardiogram is completed and reveals an EF of 20-25%; findings might be related to Takotsubo's cardiomyopathy; cardiology on board and recommending to continue with IV diuretic therapy as indicated; no concern about any acute coronary syndrome VQ scan is completed and is low probability for PE; we will discontinue IV heparin 11/07/2021, this is the first day I started taking care of the patient This is a pleasant 89 years old female with multiple medical problems presents with signs symptoms of acute systolic CHF, she has a low ejection fraction at 25-30%. Also with evidence of coronary artery disease and previous myocardial infarction. She was kept on IV Lasix and switched to oral Lasix 40 mg once daily today. She has minimal basilar crepitation and like edema and she is not dyspneic at rest or with exertion. No significant coughing or chest pain. No diarrhea. Patient denies any specific urinary symptoms. Patient also noticed to be on prednisone 10 mg daily. She is also on aspirin Plavix. Chest mild leukocytosis which may be due to steroid effect. However we need to rule out UTI, therefore we ordered urinalysis and bladder scan. November 08: I assumed care of patient today. Patient eating well. Breathing stable. Continue to go home. Has been up to the bathroom. Feels well. Changed over to oral Lasix. Care was discussed with the patient. Questions answered. Discussion and discharge planning more than 35 minutes On examination: VITAL SIGNS: [97.8, 97, 15, 1 3778, 97% room air] GENERAL APPEARANCE: Sitting up in bed, awake, comfortable HEENT: Normal external appearance of nose and ear. Oral cavity normal EYES: Pupils equal. Conjunctiva normal. NECK: JVD not raised. Mass not palpable. RESPIRATORY: Respiratory effort normal. Lungs clear to auscultation. CARDIOVASCULAR: First and second sounds normal. No edema. ABDOMEN: Soft. Liver and spleen not palpable. No tenderness. No mass palpable. PSYCHIATRY: Alert and oriented x3. Mood and affect normal. INVESTIGATIONS, reviewed in the clinical context: White count 12.6 hemoglobin 12.3 platelets 225 potassium 4.1 BUN 31 creatinine 1.12 VQ scan: Low probability 2-D echocardiogram: EF 20-25%. Global hypokinesis. Assessment and plan: -Acute on chronic systolic CHF with ejection fraction of 25-30%: Better Zestril 5 mg daily at bedtime. Lasix 40 mg a day. Toprol-XL -Acute kidney injury secondary to diuresis/prerenal: Better -Chronic kidney disease, stage III, likely from nephrosclerosis Follow BMP outpatient -Hypothyroid Synthroid 50 g a day -Essential hypertension Toprol-XL 12.5 mg a day. Zestril 5 mg by mouth daily at bedtime -Primary osteoarthritis Pain medications as needed -CAD with stent Aspirin. Cystoscopy. Toprol-XL. Lipitor. Disposition: Home Plan - Discharge Summary Discharge Rx Participant: No New Discharge Prescriptions: Continue Levothyroxine Sodium [Synthroid] 50 mcg PO DAILY Atorvastatin [Lipitor] 40 mg PO HS #30 tab Nitroglycerin Sl Tabs [Nitrostat] 0.4 mg SUBLINGUAL Q5M PRN #30 tab PRN Reason: Chest Pain Clopidogrel [Plavix] 75 mg PO DAILY #30 tab Metoprolol Succinate (ER) [Toprol XL] 12.5 mg PO DAILY #30 Isosorbide Mononitrate ER [Imdur] 60 mg PO DAILY #30 tablet Aspirin 81 mg PO DAILY Furosemide [Lasix] 40 mg PO DAILY Changed lisinopriL [Zestril] 5 mg PO HS #0 Discharge Medication List Levothyroxine Sodium [Synthroid] 50 mcg PO DAILY 08/26/18 [History] Atorvastatin [Lipitor] 40 mg PO HS #30 tab 07/03/21 [Rx] Clopidogrel [Plavix] 75 mg PO DAILY #30 tab 07/03/21 [Rx] Isosorbide Mononitrate ER [Imdur] 60 mg PO DAILY #30 tablet 07/03/21 [Rx] Metoprolol Succinate (ER) [Toprol XL] 12.5 mg PO DAILY #30 07/03/21 [Rx] Nitroglycerin Sl Tabs [Nitrostat] 0.4 mg SUBLINGUAL Q5M PRN #30 tab 07/03/21 [Rx] Aspirin 81 mg PO DAILY 11/04/21 [History] Furosemide [Lasix] 40 mg PO DAILY 11/04/21 [History] lisinopriL [Zestril] 5 mg PO HS #0 11/08/21 [Rx] Follow up Appointment(s)/Referral(s): Dwaine Fernandez DO [Primary Care Provider] - 1-2 days Alex Bonilla MD [STAFF PHYSICIAN] - 1 Week Patient Instructions/Handouts: Heart Failure (DC) Discharge Disposition: HOME SELF-CARE
== END 2021-11-08 19:04 | disposition home or self-care (01) | DRG 291 ==
LOC: EC 01:01 → 4SSUR 05:00 → 5NMEDONC 13:43 → 3SCARD 11-05 12:35
PROVIDERS: ADMIT Hospitalist; ATTEND Hospitalist
DX: I13.0 Hypertensive heart and chronic kidney disease with heart failure and stage 1 through stage 4 chronic kidney disease, or unspecified chronic kidney disease (principal); I50.23 Acute on chronic systolic (congestive) heart failure; N17.9 Acute kidney failure, unspecified; Z20.822 Contact with and (suspected) exposure to COVID-19; E03.9 Hypothyroidism, unspecified; E11.22 Type 2 diabetes mellitus with diabetic chronic kidney disease; N18.30 Chronic kidney disease, stage 3 unspecified; E78.5 Hyperlipidemia, unspecified; I25.10 Atherosclerotic heart disease of native coronary artery without angina pectoris; I25.5 Ischemic cardiomyopathy; I44.7 Left bundle-branch block, unspecified; M19.041 Primary osteoarthritis, right hand; T50.2X5A Adverse effect of carbonic-anhydrase inhibitors, benzothiadiazides and other diuretics, initial encounter; T38.0X5A Adverse effect of glucocorticoids and synthetic analogues, initial encounter; L50.9 Urticaria, unspecified; D72.829 Elevated white blood cell count, unspecified; I25.2 Old myocardial infarction; Z95.5 Presence of coronary angioplasty implant and graft; Z87.891 Personal history of nicotine dependence; Z86.010 Personal history of colon polyps; Z79.02 Long term (current) use of antithrombotics/antiplatelets; Z79.82 Long term (current) use of aspirin; Z79.890 Hormone replacement therapy; Z79.899 Other long term (current) drug therapy; Z82.49 Family history of ischemic heart disease and other diseases of the circulatory system
CPT/HCPCS: 36415; 71046; 78582; 80048; 80053; 80069; 81001; 83605; 83735; 83880; 84484; 85025; 85379; 85610; 85730; 87502; 87635; 93005; 93308; 96374; 99285

== ENCOUNTER 2022-01-22 14:58 | Observation (INO) | payer MEDICARE ==
[2022-01-22 15:36] LABS: Basophils # (A) 0.2 k/uL (0-0.2); Basophils % (A) 2 %; Eosinophils # (A) 0.3 k/uL (0-0.7); Eosinophils % (A) 3 %; HCT 46.4 % (34.0-46.0); HGB 14.8 gm/dL (11.4-16.0); Lymphocytes # (A) 4.1 k/uL (1.0-4.8); Lymphocytes % (A) 39 %; MCH 28.5 pg (25.0-35.0); MCHC 31.9 g/dL (31.0-37.0); MCV 89.5 fL (80.0-100.0); Mean Platelet Volume 9.5; Monocytes # (A) 0.6 k/uL (0-1.0); Monocytes % (A) 6 %; Neutrophils # (A) 5.1 k/uL (1.3-7.7); Neutrophils % (A) 49 %; Platelet Count 247 k/uL (150-450); RBC 5.18 m/uL (3.80-5.40); RDW 15.3 % (11.5-15.5); WBC 10.5 k/uL (3.8-10.6)
[2022-01-22 15:47] LABS: Albumin 4.3 g/dL (3.5-5.0); Calcium 9.5 mg/dL (8.4-10.2); Magnesium 1.7 mg/dL (1.6-2.3); Potassium 3.8 mmol/L (3.5-5.1); Total Bilirubin 1.2 mg/dL (0.2-1.3); Total Protein 7.7 g/dL (6.3-8.2)
[2022-01-22 15:51] LABS: INR 0.9 (<1.2); Partial Thromboplastin Time 24.5 sec (22.0-30.0); Prothrombin Time 10.3 sec (9.0-12.0)
--- NOTE | 2022-01-22 15:55 | XR ---
EXAMINATION TYPE: XR chest 2V DATE OF EXAM: 01/22/2022 3:47 PM COMPARISON: Chest radiographs from 11/04/2021 TECHNIQUE: XR chest 2V Frontal and lateral views of the chest. CLINICAL INDICATION:Female, 89 years old with history of Chest Pain; FINDINGS: Lungs/Pleura: There is no evidence of pleural effusion, focal consolidation, or pneumothorax. Pulmonary vascularity: Unremarkable. Heart/mediastinum: Cardiomediastinal silhouette is prominent in size. Musculoskeletal: No acute osseous pathology. Right rotator cuff surgical changes. IMPRESSION: 1. No acute cardiopulmonary disease/process. 2. Increased interstitial lung markings which have improved from prior on 11/04/2021.
--- NOTE | 2022-01-22 17:46 | ED ---
Chest Pain HPI - General Chief Complaint: Chest Pain Stated Complaint: Chest pain Time Seen by Provider: 01/22/22 17:30 Source: patient, RN notes reviewed Mode of arrival: ambulatory Limitations: no limitations - History of Present Illness Initial Comments: This is a pleasant 89-year-old female with a history of diabetes mellitus, hypertension, myocardial infarction, congestive heart failure. She presents to the emergency room today after developing sharp chest pain at rest at about 2:45 PM. She states this lasted about 45 minutes. Actually resolved in the waiting room. Patient has taken her 81 mg aspirin today. Patient denied any alleviating or exacerbating factors other than time. States she did have some nausea and diaphoresis at the beginning of pain. Patient also states she had a similar pain last night and took nitroglycerin which relieved the pain. Patient currently pain-free and symptom-free. No headache, no fever or chills, no changes in vision or hearing, no sore throat or difficulty with speech, no neck pain, no shortness of breath, no abdominal pain, no vomiting, no changes in urination or bowel movements, no numbness or tingling, no extremity pain, no skin rashes or lesions. Past medical, surgical, social, and family history reviewed. - Related Data Home Medications Medication Instructions Recorded Confirmed Levothyroxine Sodium [Synthroid] 50 mcg PO DAILY 08/26/18 11/04/21 Aspirin 81 mg PO DAILY 11/04/21 11/04/21 Furosemide [Lasix] 40 mg PO DAILY 11/04/21 11/04/21 Previous Rx's Medication Instructions Recorded Atorvastatin [Lipitor] 40 mg PO HS #30 tab 07/03/21 Clopidogrel [Plavix] 75 mg PO DAILY #30 tab 07/03/21 Isosorbide Mononitrate ER [Imdur] 60 mg PO DAILY #30 tablet 07/03/21 Metoprolol Succinate (ER) [Toprol 12.5 mg PO DAILY #30 07/03/21 XL] Nitroglycerin Sl Tabs [Nitrostat] 0.4 mg SUBLINGUAL Q5M PRN #30 tab 07/03/21 lisinopriL [Zestril] 5 mg PO HS #0 11/08/21 Allergies Allergy/AdvReac Type Severity Reaction Status Date / Time sulfur hexafluoride Allergy Chest Pain Verified 01/22/22 15:11 microspheres [From Lumason] acetaminophen [From Lortab] AdvReac Rash/Hives Verified 01/22/22 15:11 amoxicillin AdvReac Nausea & Verified 01/22/22 15:11 Vomiting ciprofloxacin AdvReac Rash/Hives Verified 01/22/22 15:11 hydrocodone [From Lortab] AdvReac Rash/Hives Verified 01/22/22 15:11 NSAIDS (Non-Steroidal AdvReac KIDNEY Verified 01/22/22 15:11 Anti-Inflamma PROBLEMS Review of Systems ROS Statement: Those systems with pertinent positive or pertinent negative responses have been documented in the HPI. ROS Other: All systems not noted in ROS Statement are negative. EKG Findings - EKG Comments: EKG Findings:: EKG done at 1512 and read by the ED attending physician reveals left bundle branch block with a rate of 58. QRS duration is 163 ms. Patient does have appropriate R-wave and T-wave in V6 which is changed from the previous study from October 2021. No other areas of significant change. Note that V6 on this tracing looks very similar to V5 on the tracing from October. Past Medical History Past Medical History: Chest Pain / Angina, Heart Failure, Diabetes Mellitus, Hypertension, Myocardial Infarction (KS), Osteoarthritis (OA), Thyroid Disorder Additional Past Medical History / Comment(s): Currently being treated for UTI/abx, diabetes/diet controlled/"pre", arthritis R hand and in back, back pain, hypothyroid, diverticular disease/benign colon polyp, urinary incontinence. CHF Last Myocardial Infarction Date:: 06/29/21 History of Any Multi-Drug Resistant Organisms: None Reported Past Surgical History: Adenoidectomy, Cholecystectomy, Heart Catheterization With Stent, Orthopedic Surgery, Tonsillectomy Additional Past Surgical History / Comment(s): 06/29/21 PCI with 2 stents to RCA, R rotator cuff repair, L carpal tunnel release, R foot bone spur removed, R thumb trigger finger surgery, colonoscopies/polypectomies, D&Cs, bilateral cataract removals. Past Anesthesia/Blood Transfusion Reactions: No Reported Reaction Date of Last Stent Placement:: 06/29/21 Past Psychological History: No Psychological Hx Reported Smoking Status: Former smoker Past Alcohol Use History: None Reported Past Drug Use History: None Reported - Past Family History Father Additional Family Medical History / Comment(s): Father had back surgery Mother Family Medical History: Congestive Heart Failure (CHF) Additional Family Medical History / Comment(s): Mother from chf. General Exam Limitations: no limitations General appearance: alert, in no apparent distress Head exam: Present: atraumatic, normocephalic, normal inspection Eye exam: Present: normal appearance, PERRL, EOMI. Absent: scleral icterus, conjunctival injection, periorbital swelling ENT exam: Present: normal exam, normal oropharynx, mucous membranes moist, normal external ear exam. Absent: mucous membranes dry Neck exam: Present: normal inspection, full ROM. Absent: tenderness, meningismus, lymphadenopathy Respiratory exam: Present: normal lung sounds bilaterally. Absent: respiratory distress, wheezes, rales, rhonchi, stridor, chest wall tenderness, accessory muscle use Cardiovascular Exam: Present: regular rate, normal rhythm, normal heart sounds. Absent: systolic murmur, diastolic murmur, rubs, gallop, clicks GI/Abdominal exam: Present: soft, normal bowel sounds. Absent: distended, tenderness, guarding, rebound, rigid Extremities exam: Present: normal inspection, full ROM, normal capillary refill. Absent: tenderness, pedal edema, joint swelling, calf tenderness Back exam: Present: normal inspection Neurological exam: Present: alert, oriented X3, CN II-XII intact Psychiatric exam: Present: normal affect, normal mood Skin exam: Present: warm, dry, intact, normal color. Absent: rash Course Vital Signs 01/22/22 01/22/22 15:08 17:35 Temperature 98 F Pulse Rate 69 Pulse Rate [ 78 Short Story Writer ] Respiratory 18 Rate Blood Pressure 152/77 O2 Sat by Pulse 99 Oximetry - Consultations Consultation #1: This discussed with in detail. Cardiology consult Chest Pain MDM - MDM Patient will be admitted for chest pain rule out. Appears to be no significant change on EKG. 324 mg aspirin given. Nitroglycerin. Patient started on an REGINA inhibitor and beta jerry. Patient sees Dr. Bonilla for cardiac care. Patient had stent placement in June. Patient had a bout of congestive heart. The spring and is actually scheduled to have a stress test coming. Given the patient's relief with nitroglycerin last night as well as her pain today going to treat this as unstable angina/acute coronary syndrome. Case discussed with Dr. Warren would setups admission. The case was discussed in detail with ED attending physician. Presentation, findings, treatment plan discussed in detail. Supervising Dr. Mahoney Disposition Clinical Impression: Acute coronary syndrome without high troponin Disposition: ADMITTED IP TO THIS HOSP Condition: Good Is patient prescribed a controlled substance at d/c from ED?: No Referrals: Dwaine Fernandez DO [Primary Care Provider] - 1-2 days Time of Disposition: 17:52 Decision to Admit Reason: Admit from EC Decision Time: 18:01
[2022-01-22] MEDS ORDERED: ASPIRIN 81 MG PO STA (17:48)
[2022-01-22] MEDS ORDERED: NITROGLYCERIN OINT 1 INCH/GM PACKET TOPICAL STA (17:48)
[2022-01-22] MEDS ORDERED: HEPARIN SODIUM 1,000 UN/ML (10ML VL) IV ONE (18:02)
[2022-01-22] MEDS ORDERED: NITROGLYCERIN SL TABS 0.4 MG TAB SUBLINGUAL PRN ×2 (18:02→18:05)
[2022-01-22] MEDS ORDERED: HEPARIN SOD,PORK IN 0.45% NACL 25,000 UNIT in 0.45% NACL 1 250ML.BAG IV SCH (18:15)
[2022-01-22] MEDS ORDERED: lisinopriL 5 MG TAB PO SCH (21:00)
[2022-01-22] MEDS ORDERED: ATORVASTATIN 40 MG TAB PO SCH (21:00)
[2022-01-23] MEDS ORDERED: LEVOTHYROXINE 50 MCG TAB PO SCH (07:30)
--- NOTE | 2022-01-23 07:32 | P.CRDCN ---
History of Present Illness Consult date: 01/23/22 Chief complaint: Chest discomfort History of present illness: Patient is a pleasant 89-year-old female patient with a past medical history significant for CAD with stenting of the RCA was performed in June 2021 in the setting of acute coronary syndrome as well as ischemic cardiomyopathy with EF around 25% and also hypertension and dyslipidemia presented to the hospital complaining of chest discomfort. The patient was seen in the emergency department. She was in her usual state of ill yesterday when she was at home watching TV and she started experiencing discomfort in the middle of the chest as a sharp/dull kind of discomfort with no radiation to the arms or neck or shoulders or back and no associated symptoms of shortness of breath or dizziness or lightheadedness or any feeling of heart racing or fluttering or presyncope or syncope. The symptoms lasted for about half an hour and resolved completely after that and since then she has been chest pain-free. The patient states clearly that the discomfort this time is totally different from what she had when she had her heart attack back in June 2021. This time the patient underwent a workup including EKG showing sinus rhythm with LBBB. Her troponin came in to be within normal limits. Her chest x-ray did not show any acute abnormalities. I advised the patient to be admitted and monitored for 24 hours. The patient would like to go home which seems to be okay from the cardiovascular standpoint of view as far as she is staying asymptomatic in terms of chest pain or chest discomfort and as far as we can get her up and around without being symptomatic as well. She has been compliant with all of her medication according to her Past Medical History Past Medical History: Chest Pain / Angina, Heart Failure, Diabetes Mellitus, Hypertension, Myocardial Infarction (MD), Osteoarthritis (OA), Thyroid Disorder Additional Past Medical History / Comment(s): Currently being treated for UTI/abx, diabetes/diet controlled/"pre", arthritis R hand and in back, back pain, hypothyroid, diverticular disease/benign colon polyp, urinary incontinence. CHF Last Myocardial Infarction Date:: 06/29/21 History of Any Multi-Drug Resistant Organisms: None Reported Past Surgical History: Adenoidectomy, Cholecystectomy, Heart Catheterization With Stent, Orthopedic Surgery, Tonsillectomy Additional Past Surgical History / Comment(s): 06/29/21 PCI with 2 stents to RCA, R rotator cuff repair, L carpal tunnel release, R foot bone spur removed, R thumb trigger finger surgery, colonoscopies/polypectomies, D&Cs, bilateral cataract removals. Past Anesthesia/Blood Transfusion Reactions: No Reported Reaction Date of Last Stent Placement:: 06/29/21 Past Psychological History: No Psychological Hx Reported Smoking Status: Former smoker Past Alcohol Use History: None Reported Past Drug Use History: None Reported - Past Family History Father Additional Family Medical History / Comment(s): Father had back surgery Mother Family Medical History: Congestive Heart Failure (CHF) Additional Family Medical History / Comment(s): Mother from chf. Medications and Allergies Home Medications Medication Instructions Recorded Confirmed Type Levothyroxine Sodium [Synthroid] 50 mcg PO DAILY 08/26/18 01/22/22 History Clopidogrel [Plavix] 75 mg PO DAILY #30 tab 07/03/21 01/22/22 Rx Isosorbide Mononitrate ER [Imdur] 60 mg PO DAILY #30 tablet 07/03/21 01/22/22 Rx Metoprolol Succinate (ER) [Toprol 12.5 mg PO DAILY #30 07/03/21 01/22/22 Rx XL] Nitroglycerin Sl Tabs [Nitrostat] 0.4 mg SUBLINGUAL Q5M PRN #30 tab 07/03/21 01/22/22 Rx Furosemide [Lasix] 40 mg PO DAILY 11/04/21 01/22/22 History Atorvastatin [Lipitor] 40 mg PO DAILY 01/22/22 01/22/22 History lisinopriL [Zestril] 5 mg PO DAILY 01/22/22 01/22/22 History Allergies Allergy/AdvReac Type Severity Reaction Status Date / Time sulfur hexafluoride Allergy Chest Pain Verified 01/22/22 19:15 microspheres [From Lumason] acetaminophen [From Lortab] AdvReac Rash/Hives Verified 01/22/22 19:15 amoxicillin AdvReac Nausea & Verified 01/22/22 19:15 Vomiting ciprofloxacin AdvReac Rash/Hives Verified 01/22/22 19:15 hydrocodone [From Lortab] AdvReac Rash/Hives Verified 01/22/22 19:15 NSAIDS (Non-Steroidal AdvReac KIDNEY Verified 01/22/22 19:15 Anti-Inflamma PROBLEMS Physical Exam Vitals: Vital Signs Temp Pulse Pulse Resp BP Pulse Ox 01/23/22 07:18 88 20 133/83 97 01/23/22 06:00 53 L 22 150/75 95 01/23/22 05:00 54 L 20 153/86 95 01/23/22 04:00 51 L 20 154/79 97 01/23/22 03:22 58 L 20 159/80 97 01/23/22 01:00 61 20 154/84 97 01/22/22 22:00 82 20 169/89 94 L 01/22/22 21:00 62 20 161/87 97 01/22/22 19:00 98.4 F 57 L 16 171/83 98 01/22/22 17:35 78 01/22/22 15:08 98 F 69 18 152/77 99 Intake and Output 01/22/22 01/23/22 01/23/22 22:59 06:59 14:59 Intake Total 8.889 17.267 Balance 8.889 17.267 Intake: Intake, IV Titration 8.889 17.267 Amount Heparin Sod,Pork in 0.45% 8.889 17.267 NaCl 25,000 unit In 0.45 % NaCl 1 250ml.bag @ 12 UNITS/KG/HR 7.512 mls/hr IV .Q24H [facility] Rx#: [id number] Other: Weight 62.596 kg - Constitutional General appearance: no acute distress - Respiratory Respiratory: bilateral: CTA - Cardiovascular Rhythm: regular Heart sounds: normal: S1, S2 Results 01/22/22 15:12 01/22/22 15:12 Cardiac Enzymes 01/22/22 01/22/22 01/22/22 Range/Units 15:12 15:12 19:02 AST 138 H (14-36) U/L Troponin I 0.016 0.018 (0.000-0.034) ng/mL 01/22/22 Range/Units 20:40 AST (14-36) U/L Troponin I 0.016 (0.000-0.034) ng/mL Coagulation 01/22/22 01/22/22 01/22/22 Range/Units 15:12 19:02 23:38 PT 10.3 (9.0-12.0) sec APTT 24.5 >200.0 H* 35.1 H (22.0-30.0) sec CBC 01/22/22 Range/Units 15:12 WBC 10.5 (3.8-10.6) k/uL RBC 5.18 (3.80-5.40) m/uL Hgb 14.8 (11.4-16.0) gm/dL Hct 46.4 H (34.0-46.0) % Plt Count 247 (150-450) k/uL Comprehensive Metabolic Panel 01/22/22 Range/Units 15:12 Sodium 139 (137-145) mmol/L Potassium 3.8 (3.5-5.1) mmol/L Chloride 102 (98-107) mmol/L Carbon Dioxide 22 (22-30) mmol/L BUN 22 H (7-17) mg/dL Creatinine 1.30 H (0.52-1.04) mg/dL Glucose 124 H (74-99) mg/dL Calcium 9.5 (8.4-10.2) mg/dL AST 138 H (14-36) U/L ALT 77 H (4-34) U/L Alkaline Phosphatase 104 (38-126) U/L Total Protein 7.7 (6.3-8.2) g/dL Albumin 4.3 (3.5-5.0) g/dL Current Medications Generic Name Dose Route Start Last Admin Trade Name Freq PRN Reason Stop Dose Admin Aspirin 325 mg 01/23/22 09:00 Aspirin 325 Mg Tab PO DAILY [facility] Atorvastatin Calcium 40 mg 01/22/22 21:00 01/22/22 20:42 Atorvastatin 40 Mg Tab PO Not Given HS [facility] Clopidogrel Bisulfate 75 mg 01/23/22 09:00 Clopidogrel 75 Mg Tab PO DAILY [facility] Furosemide 40 mg 01/23/22 09:00 Furosemide 40 Mg Tab PO DAILY [facility] Heparin Sodium/Sodium Chloride 250 mls @ 7.512 mls/hr 01/22/22 18:15 01/23/22 03:27 25,000 unit/ Sodium Chloride IV 8 units/kg/hr .Q24H [facility] 5.008 mls/hr Titration Protocol 12 UNITS/KG/HR Isosorbide Mononitrate 60 mg 01/23/22 09:00 Isosorbide Mononitrate Er 60 Mg Tab.Er.24h PO DAILY [facility] Levothyroxine Sodium 50 mcg 01/23/22 07:30 Levothyroxine 50 Mcg Tab PO DAILY@0730 [facility] Lisinopril 5 mg 01/22/22 21:00 01/22/22 20:43 Lisinopril 5 Mg Tab PO 5 mg HS [facility]RIAN Administration Metoprolol Succinate 12.5 mg 01/23/22 09:00 Metoprolol Succinate (Er) 25 Mg Tab.Er.24h PO DAILY [facility] Nitroglycerin 0.4 mg 01/22/22 18:02 Nitroglycerin Sl Tabs 0.4 Mg Tab SUBLINGUAL Q5M PRN Chest Pain Intake and Output 01/22/22 01/23/22 01/23/22 22:59 06:59 14:59 Intake Total 8.889 17.267 Balance 8.889 17.267 Intake: Intake, IV Titration 8.889 17.267 Amount Heparin Sod,Pork in 0.45% 8.889 17.267 NaCl 25,000 unit In 0.45 % NaCl 1 250ml.bag @ 12 UNITS/KG/HR 7.512 mls/hr IV .Q24H [facility] Rx#: [id number] Other: Weight 62.596 kg 01/22/22 15:12 01/22/22 15:12 Assessment and Plan Assessment: Assessment #1 chest discomfort which has resolved appeared to be atypical #2 CAD was prior stenting of the RCA in the setting of acute coronary syndrome #3 ischemic cardiomyopathy was EF of 25% on echocardiogram from this year #4 multiple comorbid conditions Plan #1 DC heparin #2 increase the dose of lisinopril in the light of elevated blood pressure #3 the patient potentially can be discharged
[2022-01-23 08:11] VITALS: BP 175/74; PULSE 59; RESP 12; TEMP 98.5
[2022-01-23] MEDS ORDERED: CLOPIDOGREL 75 MG TAB PO SCH (09:00)
[2022-01-23] MEDS ORDERED: FUROSEMIDE 40 MG TAB PO SCH (09:00)
[2022-01-23] MEDS ORDERED: METOPROLOL SUCCINATE (ER) 25 MG TAB.ER.24H PO SCH (09:00)
[2022-01-23] MEDS ORDERED: ISOSORBIDE MONONITRATE ER 60 MG TAB.ER.24H PO SCH (09:00)
[2022-01-23] MEDS ORDERED: ASPIRIN 325 MG TAB PO SCH (09:00)
[2022-01-23 10:48] LABS: Platelet Count 219 X 10*3/uL (140-440)
[2022-01-23 11:24] LABS: Chol/HDL Ratio 3.16 Ratio; LDL Cholesterol,Calculated 49.2 mg/dL (0.0-131.0)
[2022-01-23] MEDS ORDERED: ATORVASTATIN 40 MG TAB PO SCH (12:45)
--- NOTE | 2022-01-23 18:39 | P.HPIM ---
History of Present Illness H&P Date: 01/23/22 Chief Complaint: Chest pain This is a pleasant 89-year-old patient who follows with Dr. Fernandez and patroller Dr. Torrez. Chronic stable medical conditions include CHF, diabetes, hypertension, osteoporosis, hypothyroid, arthritis, diverticulosis, urinary incontinence, CAD with stent. Generally of this year patient had 2 stents to the RCA. Patient presents with having central chest pain sharp in nature over the sternum. While sitting. No radiation. No dizziness no shortness of breath no perspiration. No lightheadedness. Lasted for about an hour. Decided to come in. Admitted unstable angina. Negative troponins. Review of systems: GEN.: None EYES: None HEENT: None NECK: None RESPIRATORY: None CARDIOVASCULAR: As above GASTROINTESTINAL: None GENITOURINARY: None MUSCULOSKELETAL: Joint pain LYMPHATICS: None HEMATOLOGICAL: None PSYCHIATRY: None NEUROLOGICAL: None Past medical history to include: CHF, diabetes, hypertension, osteoporosis, hypothyroid, arthritis, diverticulosis, urinary incontinence, CAD with stent. Generally of this year patient had 2 stents to the RCA. Social history: Daughter lives with her. No smoking. No alcohol. Family history: CHF Physical examination: VITAL SIGNS: 98.5, 59, 12, 1 75 x 74, 98% room air GENERAL: BMI 23.7, reclining in bed, awake, comfortable. EYES: Pupils equal. Conjunctiva normal. HEENT: External appearance of nose and ears normal, oral cavity grossly normal. NECK: JVD not raised; masses not palpable. HEART: First and second heart sounds are normal; no edema. LUNGS: Respiratory rate normal; clear to auscultation. ABDOMEN: Soft, nontender, liver spleen not palpable, no masses palpable. PSYCH: Alert and oriented x3; mood and affect normal. MUSCULOSKELETAL:No Clubbing/cyanosis;muscles-grossly intact, OA NEUROLOGICAL: Cranial nerves grossly intact; no facial asymmetry, power and sensation grossly intact. LYMPHATICS: No lymph nodes palpable in the axilla and neck INVESTIGATIONS, reviewed in the clinical context: White count 10.5 hemoglobin 14.8 platelets 247 sodium 139 potassium 3.8 BUN 22 creatinine 1.30 Troponin I 0.016, 0.018, 0.016 LDL 49.2 EKG tracing personally reviewed by me-sinus rhythm. Left bundle-branch block. Chest x-ray film personally reviewed by me-no infiltrates Assessment and plan -Anterior chest wall pain. Questionable unstable angina. Could be muscular skeletal. IV heparin. Cardiology consulted. Troponins are negative. -chronic systolic CHF with ejection fraction of 25-30%: From ischemic cardiomyopathy Zestril Lasix 40 mg a day. Toprol-XL -Chronic kidney disease, stage III, likely from nephrosclerosis Follow BMP outpatient -Hypothyroid Synthroid 50 g a day -Essential hypertension: Controlled Toprol-XL 12.5 mg a day. Increase Zestril to 10 mg daily at bedtime -Primary osteoarthritis Pain medications as needed -CAD with stent 2 to RCA / June 2021 Aspirin. Toprol-XL. Lipitor. -Colonic diverticulosis Asymptomatic -Chronic urinary incontinence IV heparin. Home medications resumed. Adjust blood pressure medications. Discussed with the patient. Telemetry. Cardiology consulted. Past Medical History Past Medical History: Chest Pain / Angina, Heart Failure, Diabetes Mellitus, Hypertension, Myocardial Infarction (MS), Osteoarthritis (OA), Thyroid Disorder Additional Past Medical History / Comment(s): Currently being treated for UTI/abx, diabetes/diet controlled/"pre", arthritis R hand and in back, back pain, hypothyroid, diverticular disease/benign colon polyp, urinary incontinence. CHF Last Myocardial Infarction Date:: 06/29/21 History of Any Multi-Drug Resistant Organisms: None Reported Past Surgical History: Adenoidectomy, Cholecystectomy, Heart Catheterization With Stent, Orthopedic Surgery, Tonsillectomy Additional Past Surgical History / Comment(s): 06/29/21 PCI with 2 stents to RCA, R rotator cuff repair, L carpal tunnel release, R foot bone spur removed, R thumb trigger finger surgery, colonoscopies/polypectomies, D&Cs, bilateral cataract removals. Past Anesthesia/Blood Transfusion Reactions: No Reported Reaction Date of Last Stent Placement:: 06/29/21 Past Psychological History: No Psychological Hx Reported Smoking Status: Former smoker Past Alcohol Use History: None Reported Past Drug Use History: None Reported - Past Family History Father Additional Family Medical History / Comment(s): Father had back surgery Mother Family Medical History: Congestive Heart Failure (CHF) Additional Family Medical History / Comment(s): Mother from chf. Medications and Allergies Home Medications Medication Instructions Recorded Confirmed Type Levothyroxine Sodium [Synthroid] 50 mcg PO DAILY 08/26/18 01/22/22 History Clopidogrel [Plavix] 75 mg PO DAILY #30 tab 07/03/21 01/22/22 Rx Isosorbide Mononitrate ER [Imdur] 60 mg PO DAILY #30 tablet 07/03/21 01/22/22 Rx Metoprolol Succinate (ER) [Toprol 12.5 mg PO DAILY #30 07/03/21 01/22/22 Rx XL] Nitroglycerin Sl Tabs [Nitrostat] 0.4 mg SUBLINGUAL Q5M PRN #30 tab 07/03/21 01/22/22 Rx Furosemide [Lasix] 40 mg PO DAILY 11/04/21 01/22/22 History Atorvastatin [Lipitor] 40 mg PO DAILY 01/22/22 01/22/22 History Aspirin 81 mg PO DAILY #30 tab 01/23/22 Rx lisinopriL [Zestril] 10 mg PO HS #30 tab 01/23/22 Rx Allergies Allergy/AdvReac Type Severity Reaction Status Date / Time sulfur hexafluoride Allergy Chest Pain Verified 01/22/22 19:15 microspheres [From Lumason] acetaminophen [From Lortab] AdvReac Rash/Hives Verified 01/22/22 19:15 amoxicillin AdvReac Nausea & Verified 01/22/22 19:15 Vomiting ciprofloxacin AdvReac Rash/Hives Verified 01/22/22 19:15 hydrocodone [From Lortab] AdvReac Rash/Hives Verified 01/22/22 19:15 NSAIDS (Non-Steroidal AdvReac KIDNEY Verified 01/22/22 19:15 Anti-Inflamma PROBLEMS Physical Exam Vitals: Vital Signs Temp Pulse Pulse Resp BP BP Pulse Ox 01/23/22 08:00 98.5 F 59 L 12 175/74 98 01/23/22 07:18 88 20 133/83 97 01/23/22 06:00 53 L 22 150/75 95 01/23/22 05:00 54 L 20 153/86 95 01/23/22 04:00 51 L 20 154/79 97 01/23/22 03:22 58 L 20 159/80 97 01/23/22 01:00 61 20 154/84 97 01/22/22 22:00 82 20 169/89 94 L 01/22/22 21:00 62 20 161/87 97 01/22/22 19:00 98.4 F 57 L 16 171/83 98 01/22/22 17:35 78 01/22/22 15:08 98 F 69 18 152/77 99 Intake and Output 01/22/22 01/23/22 01/23/22 22:59 06:59 14:59 Intake Total 8.889 17.267 Balance 8.889 17.267 Intake: Intake, IV Titration 8.889 17.267 Amount Heparin Sod,Pork in 0.45% 8.889 17.267 NaCl 25,000 unit In 0.45 % NaCl 1 250ml.bag @ 12 UNITS/KG/HR 7.512 mls/hr IV .Q24H [facility] Rx#: [id number] Other: Weight 62.596 kg Results CBC & Chem 7: 01/23/22 07:14 01/22/22 15:12 Labs: Abnormal Lab Results - Last 24 Hours (Table) 01/22/22 01/22/22 01/22/22 Range/Units 15:12 15:12 19:02 Hct 46.4 H (34.0-46.0) % APTT >200.0 H* (22.0-30.0) sec BUN 22 H (7-17) mg/dL Creatinine 1.30 H (0.52-1.04) mg/dL Glucose 124 H (74-99) mg/dL AST 138 H (14-36) U/L ALT 77 H (4-34) U/L 01/22/22 01/23/22 Range/Units 23:38 07:14 Hct (34.0-46.0) % APTT 35.1 H 39.8 H (22.0-30.0) sec BUN (7-17) mg/dL Creatinine (0.52-1.04) mg/dL Glucose (74-99) mg/dL AST (14-36) U/L ALT (4-34) U/L
--- NOTE | 2022-01-23 19:16 | P.DS ---
Providers Date of admission: 01/22/22 18:09 Expected date of discharge: 01/23/22 Attending physician: Torres Warren Consults: 01/22/22 18:02 Consult Physician Urgent Consulting Provider: Alex Bonilla Consult Reason/Comments: Unstable angina Do you want consulting provider notified?: Yes Primary care physician: [facility] Course: Chief Complaint: Chest pain This is a pleasant 89-year-old patient who follows with Dr. Fernandez and music artist Dr. Torrez. Chronic stable medical conditions include CHF, diabetes, hypertension, osteoporosis, hypothyroid, arthritis, diverticulosis, urinary incontinence, CAD with stent. Generally of this year patient had 2 stents to the RCA. Patient presents with having central chest pain sharp in nature over the sternum. While sitting. No radiation. No dizziness no shortness of breath no perspiration. No lightheadedness. Lasted for about an hour. Decided to come in. Admitted unstable angina. Negative troponins. Patient seen by cardiology Dr. Joseph. Blood pressure medications lisinopril was increased to 10 mg daily at bedtime. Patient to follow-up with Dr. Torrez outpatient. Has a scheduled stress test. Discussed with patient. Past medical history to include: CHF, diabetes, hypertension, osteoporosis, hypothyroid, arthritis, diverticulosis, urinary incontinence, CAD with stent. Generally of this year patient had 2 stents to the RCA. Social history: Daughter lives with her. No smoking. No alcohol. Family history: CHF Physical examination: VITAL SIGNS: 98.5, 59, 12, 1 75 x 74, 98% room air GENERAL: BMI 23.7, reclining in bed, awake, comfortable. EYES: Pupils equal. Conjunctiva normal. HEENT: External appearance of nose and ears normal, oral cavity grossly normal. NECK: JVD not raised; masses not palpable. HEART: First and second heart sounds are normal; no edema. LUNGS: Respiratory rate normal; clear to auscultation. ABDOMEN: Soft, nontender, liver spleen not palpable, no masses palpable. PSYCH: Alert and oriented x3; mood and affect normal. MUSCULOSKELETAL:No Clubbing/cyanosis;muscles-grossly intact, OA NEUROLOGICAL: Cranial nerves grossly intact; no facial asymmetry, power and sensation grossly intact. LYMPHATICS: No lymph nodes palpable in the axilla and neck INVESTIGATIONS, reviewed in the clinical context: White count 10.5 hemoglobin 14.8 platelets 247 sodium 139 potassium 3.8 BUN 22 creatinine 1.30 Troponin I 0.016, 0.018, 0.016 LDL 49.2 EKG tracing personally reviewed by me-sinus rhythm. Left bundle-branch block. Chest x-ray film personally reviewed by me-no infiltrates Assessment and plan -Anterior chest wall pain. Questionable unstable angina. Could be muscular skeletal. IV heparin. Cardiology consulted. Troponins are negative. Outpatient stress test. -chronic systolic CHF with ejection fraction of 25-30%: From ischemic cardiomyopathy Zestril Lasix 40 mg a day. Toprol-XL -Chronic kidney disease, stage III, likely from nephrosclerosis Follow BMP outpatient -Hypothyroid Synthroid 50 g a day -Essential hypertension: Controlled Toprol-XL 12.5 mg a day. Increase Zestril to 10 mg daily at bedtime -Primary osteoarthritis Pain medications as needed -CAD with stent 2 to June 2021 Aspirin. Toprol-XL. Lipitor. -Colonic diverticulosis Asymptomatic -Chronic urinary incontinence Disposition: Home Patient Condition at Discharge: Good Plan - Discharge Summary New Discharge Prescriptions: New Aspirin 81 mg PO DAILY #30 tab lisinopriL [Zestril] 10 mg PO HS #30 tab Continue Levothyroxine Sodium [Synthroid] 50 mcg PO DAILY Nitroglycerin Sl Tabs [Nitrostat] 0.4 mg SUBLINGUAL Q5M PRN #30 tab PRN Reason: Chest Pain Clopidogrel [Plavix] 75 mg PO DAILY #30 tab Metoprolol Succinate (ER) [Toprol XL] 12.5 mg PO DAILY #30 Atorvastatin [Lipitor] 40 mg PO DAILY Isosorbide Mononitrate ER [Imdur] 60 mg PO DAILY #30 tablet Furosemide [Lasix] 40 mg PO DAILY Discontinued lisinopriL [Zestril] 5 mg PO DAILY Discharge Medication List Levothyroxine Sodium [Synthroid] 50 mcg PO DAILY 08/26/18 [History] Clopidogrel [Plavix] 75 mg PO DAILY #30 tab 07/03/21 [Rx] Isosorbide Mononitrate ER [Imdur] 60 mg PO DAILY #30 tablet 07/03/21 [Rx] Metoprolol Succinate (ER) [Toprol XL] 12.5 mg PO DAILY #30 07/03/21 [Rx] Nitroglycerin Sl Tabs [Nitrostat] 0.4 mg SUBLINGUAL Q5M PRN #30 tab 07/03/21 [Rx] Furosemide [Lasix] 40 mg PO DAILY 11/04/21 [History] Atorvastatin [Lipitor] 40 mg PO DAILY 01/22/22 [History] Aspirin 81 mg PO DAILY #30 tab 01/23/22 [Rx] lisinopriL [Zestril] 10 mg PO HS #30 tab 01/23/22 [Rx] Follow up Appointment(s)/Referral(s): Dwaine Fernandez DO [Primary Care Provider] - 1-2 days Alex Bonilla MD [STAFF PHYSICIAN] - 01/30/22 3:30 pm Patient Instructions/Handouts: Chest Pain (DC) Activity/Diet/Wound Care/Special Instructions: activity as tolerated regular diet Discharge Disposition: HOME SELF-CARE
[2022-01-23] MEDS ORDERED: lisinopriL 10 MG TAB PO SCH (21:00)
== END 2022-01-23 13:35 | disposition home or self-care (01) ==
LOC: EC 14:58 → 6NMEDSUR 18:09
PROVIDERS: ADMIT Hospitalist; ATTEND Hospitalist
DX: R07.89 Other chest pain (principal); I13.0 Hypertensive heart and chronic kidney disease with heart failure and stage 1 through stage 4 chronic kidney disease, or unspecified chronic kidney disease; I50.22 Chronic systolic (congestive) heart failure; I25.2 Old myocardial infarction; N18.30 Chronic kidney disease, stage 3 unspecified; I44.7 Left bundle-branch block, unspecified; E03.9 Hypothyroidism, unspecified; E78.5 Hyperlipidemia, unspecified; I25.5 Ischemic cardiomyopathy; M81.0 Age-related osteoporosis without current pathological fracture; K57.30 Diverticulosis of large intestine without perforation or abscess without bleeding; I25.10 Atherosclerotic heart disease of native coronary artery without angina pectoris; E11.22 Type 2 diabetes mellitus with diabetic chronic kidney disease; R32 Unspecified urinary incontinence; Z79.890 Hormone replacement therapy; Z79.82 Long term (current) use of aspirin; Z79.899 Other long term (current) drug therapy; Z90.49 Acquired absence of other specified parts of digestive tract; Z95.5 Presence of coronary angioplasty implant and graft; Z87.891 Personal history of nicotine dependence; Z82.49 Family history of ischemic heart disease and other diseases of the circulatory system; Z79.02 Long term (current) use of antithrombotics/antiplatelets
CPT/HCPCS: 96376; 96365; 96366 ×2; 99285; 36415; 93005 ×2; 80061; 80053; 83735; 84484; 85025; 85049; 85610; 85730 ×2; 71046; G0378 ×2; J1644 ×2

== ENCOUNTER 2022-05-28 06:28 | Inpatient (IN) | payer MEDICARE ==
[2022-05-28] MEDS ORDERED: IPRATROPIUM-ALBUTEROL 3 ML NEB INHALATION STA (06:42)
--- NOTE | 2022-05-28 06:46 | ED ---
SOB HPI - General Chief Complaint: Shortness of Breath Stated Complaint: DIMITRI Time Seen by Provider: 05/28/22 06:36 Source: patient, family, RN notes reviewed Mode of arrival: ambulatory Limitations: no limitations - History of Present Illness Initial Comments: This is an 89-year-old female who presents to the emergency department for difficulty breathing. States that around midnight, she woke up with wheezing. She has associated shortness of breath. Denies any chest pain. She is unsure if this is related to the CHF, but states that this feels different. Denies any chest pain. She does report mild associated coughing. Denies any leg swelling. She was around family members yesterday, but states that they were not sick. Prior to this, she is unsure of any sick contacts. She otherwise has no history of asthma or COPD and denies any smoking history. Denies any fevers, chills, sore throat, chest pain, palpitations, abdominal pa in, nausea, vomiting, diarrhea, back pain, or headaches. MD Complaint: shortness of breath, cough Known History Of: congestive heart failure, diabetes Treatments Prior to Arrival: none - Related Data Home Medications Medication Instructions Recorded Confirmed Levothyroxine Sodium [Synthroid] 50 mcg PO DAILY 08/26/18 01/22/22 Furosemide [Lasix] 40 mg PO DAILY 11/04/21 01/22/22 Atorvastatin [Lipitor] 40 mg PO DAILY 01/22/22 01/22/22 Previous Rx's Medication Instructions Recorded Clopidogrel [Plavix] 75 mg PO DAILY #30 tab 07/03/21 Isosorbide Mononitrate ER [Imdur] 60 mg PO DAILY #30 tablet 07/03/21 Metoprolol Succinate (ER) [Toprol 12.5 mg PO DAILY #30 07/03/21 XL] Nitroglycerin Sl Tabs [Nitrostat] 0.4 mg SUBLINGUAL Q5M PRN #30 tab 07/03/21 Aspirin 81 mg PO DAILY #30 tab 01/23/22 lisinopriL [Zestril] 10 mg PO HS #30 tab 01/23/22 Allergies Allergy/AdvReac Type Severity Reaction Status Date / Time sulfur hexafluoride Allergy Chest Pain Verified 05/28/22 06:35 microspheres [From Lumason] acetaminophen [From Lortab] AdvReac Rash/Hives Verified 05/28/22 06:35 amoxicillin AdvReac Nausea & Verified 05/28/22 06:35 Vomiting ciprofloxacin AdvReac Rash/Hives Verified 05/28/22 06:35 hydrocodone [From Lortab] AdvReac Rash/Hives Verified 05/28/22 06:35 NSAIDS (Non-Steroidal AdvReac KIDNEY Verified 05/28/22 06:35 Anti-Inflamma PROBLEMS Review of Systems ROS Statement: Those systems with pertinent positive or pertinent negative responses have been documented in the HPI. ROS Other: All systems not noted in ROS Statement are negative. Past Medical History Past Medical History: Chest Pain / Angina, Heart Failure, Diabetes Mellitus, H ypertension, Myocardial Infarction ([place]), Osteoarthritis (OA), Thyroid Disorder Additional Past Medical History / Comment(s): Currently being treated for UTI/abx, diabetes/diet controlled/"pre", arthritis R hand and in back, back pain, hypothyroid, diverticular disease/benign colon polyp, urinary incontinence. CHF Last Myocardial Infarction Date:: 06/29/21 History of Any Multi-Drug Resistant Organisms: None Reported Past Surgical History: Adenoidectomy, Cholecystectomy, Heart Catheterization With Stent, Orthopedic Surgery, Tonsillectomy Additional Past Surgical History / Comment(s): 06/29/21 PCI with 2 stents to RCA, R rotator cuff repair, L carpal tunnel release, R foot bone spur removed, R thumb trigger finger surgery, colonoscopies/polypectomies, D&Cs, bilateral cataract removals. Past Anesthesia/Blood Transfusion Reactions: No Reported Reaction Date of Last Stent Placement:: 06/29/21 Past Psychological History: No Psychological Hx Reported Smoking Status: Former smoker Past Alcohol Use History: None Reported Past Drug Use History: None Reported - Past Family History Father Additional Family Medical History / Comment(s): Father had back surgery Mother Family Medical History: Congestive Heart Failure (CHF) Additional Family Medical History / Comment(s): Mother from chf. General Exam Limitations: no limitations General appearance: alert, in no apparent distress Head exam: Present: atraumatic, normocephalic, normal inspection Respiratory exam: Present: decreased breath sounds, prolonged expiratory Cardiovascular Exam: Present: regular rate, normal rhythm, normal heart sounds, other (No pitting edema). Absent: systolic murmur, diastolic murmur, rubs, gallop, clicks Neurological exam: Present: alert, oriented X3, CN II-XII intact Psychiatric exam: Present: normal affect, normal mood Skin exam: Present: warm, dry, intact, normal color. Absent: rash Course Vital Signs 05/28/22 05/28/22 05/28/22 06:33 07:30 07:35 Temperature 97.9 F 98 F Pulse Rate 92 74 77 Respiratory 24 18 18 Rate Blood Pressure 160/98 165/80 O2 Sat by Pulse 96 95 Oximetry 05/28/22 05/28/22 05/28/22 07:39 08:00 09:00 Temperature Pulse Rate 76 76 80 Respiratory 16 18 18 Rate Blood Pressure 165/80 156/82 O2 Sat by Pulse 95 96 Oximetry 05/28/22 05/28/22 10:00 10:28 Temperature Pulse Rate 79 71 Respiratory 18 18 Rate Blood Pressure 177/85 O2 Sat by Pulse 97 97 Oximetry Medical Decision Making - Medical Decision Making This is an 89-year-old female who presents to the emergency department for wheezing and difficulty breathing. My interpretation of the chest x-ray reveals interstitial pulmonary edema. There is no evidence for localized consolidations or infiltrates. DuoNeb breathing treatment administered, however she states that this was not very beneficial. Patient is negative for Covid and influenza. BNP is elevated at 3030. Given that the patient is experiencing orthopnea, the BNP value, and the interstitial pulmonary edema, will admit to medicine for CHF exacerbation with cardiology consult. Patient given 40 mg of IV Lasix. This case was discussed in detail with the attending ED physician. Presentation, findings, and treatment plan discussed in detail as well. - Lab Data Result diagrams: 05/28/22 06:48 05/28/22 06:48 Lab Results 05/28/22 05/28/22 05/28/22 Range/Units 06:48 06:48 06:48 WBC 10.2 (3.8-10.6) k/uL RBC 5.20 (3.80-5.40) m/uL Hgb 16.1 H (11.4-16.0) gm/dL Hct 47.4 H (34.0-46.0) % MCV 91.2 (80.0-100.0) fL MCH 31.1 (25.0-35.0) pg MCHC 34.1 (31.0-37.0) g/dL RDW 15.5 (11.5-15.5) % Plt Count 221 (150-450) k/uL MPV 9.3 Neutrophils % 61 % Lymphocytes % 31 % Monocytes % 4 % Eosinophils % 2 % Basophils % 1 % Neutrophils # 6.2 (1.3-7.7) k/uL Lymphocytes # 3.2 (1.0-4.8) k/uL Monocytes # 0.4 (0-1.0) k/uL Eosinophils # 0.2 (0-0.7) k/uL Basophils # 0.1 (0-0.2) k/uL PT 10.0 (9.0-12.0) sec INR 0.9 (<1.2) APTT 24.4 (22.0-30.0) sec Sodium 139 (137-145) mmol/L Potassium 4.0 (3.5-5.1) mmol/L Chloride 109 H (98-107) mmol/L Carbon Dioxide 22 (22-30) mmol/L Anion Gap 8 mmol/L BUN 17 (7-17) mg/dL Creatinine 1.13 H (0.52-1.04) mg/dL Est GFR (CKD-EPI)AfAm 50 (>60 ml/min/1.73 sqM) Est GFR (CKD-EPI)NonAf 43 (>60 ml/min/1.73 sqM) Glucose 156 H (74-99) mg/dL Plasma Lactic Acid Abdoulaye (0.7-2.0) mmol/L Calcium 8.8 (8.4-10.2) mg/dL Total Bilirubin 1.8 H (0.2-1.3) mg/dL AST 27 (14-36) U/L ALT 18 (4-34) U/L Alkaline Phosphatase 85 (38-126) U/L Troponin I (0.000-0.034) ng/mL NT-Pro-B Natriuret Pep pg/mL Total Protein 7.7 (6.3-8.2) g/dL Albumin 4.1 (3.5-5.0) g/dL Coronavirus (PCR) (Not Detectd) Influenza Type A RNA (Not Detectd) Influenza Type B (PCR) (Not Detectd) 05/28/22 05/28/22 05/28/22 Range/Units 06:48 06:48 06:48 WBC (3.8-10.6) k/uL RBC (3.80-5.40) m/uL Hgb (11.4-16.0) gm/dL Hct (34.0-46.0) % MCV (80.0-100.0) fL MCH (25.0-35.0) pg MCHC (31.0-37.0) g/dL RDW (11.5-15.5) % Plt Count (150-450) k/uL MPV Neutrophils % % Lymphocytes % % Monocytes % % Eosinophils % % Basophils % % Neutrophils # (1.3-7.7) k/uL Lymphocytes # (1.0-4.8) k/uL Monocytes # (0-1.0) k/uL Eosinophils # (0-0.7) k/uL Basophils # (0-0.2) k/uL PT (9.0-12.0) sec INR (<1.2) APTT (22.0-30.0) sec Sodium (137-145) mmol/L Potassium (3.5-5.1) mmol/L Chloride (98-107) mmol/L Carbon Dioxide (22-30) mmol/L Anion Gap mmol/L BUN (7-17) mg/dL Creatinine (0.52-1.04) mg/dL Est GFR (CKD-EPI)AfAm (>60 ml/min/1.73 sqM) Est GFR (CKD-EPI)NonAf (>60 ml/min/1.73 sqM) Glucose (74-99) mg/dL Plasma Lactic Acid Abdoulaye 1.4 (0.7-2.0) mmol/L Calcium (8.4-10.2) mg/dL Total Bilirubin (0.2-1.3) mg/dL AST (14-36) U/L ALT (4-34) U/L Alkaline Phosphatase (38-126) U/L Troponin I 0.021 (0.000-0.034) ng/mL NT-Pro-B Natriuret Pep 3030 pg/mL Total Protein (6.3-8.2) g/dL Albumin (3.5-5.0) g/dL Coronavirus (PCR) (Not Detectd) Influenza Type A RNA (Not Detectd) Influenza Type B (PCR) (Not Detectd) 05/28/22 05/28/22 05/28/22 Range/Units 06:48 06:48 09:39 WBC (3.8-10.6) k/uL RBC (3.80-5.40) m/uL Hgb (11.4-16.0) gm/dL Hct (34.0-46.0) % MCV (80.0-100.0) fL MCH (25.0-35.0) pg MCHC (31.0-37.0) g/dL RDW (11.5-15.5) % Plt Count (150-450) k/uL MPV Neutrophils % % Lymphocytes % % Monocytes % % Eosinophils % % Basophils % % Neutrophils # (1.3-7.7) k/uL Lymphocytes # (1.0-4.8) k/uL Monocytes # (0-1.0) k/uL Eosinophils # (0-0.7) k/uL Basophils # (0-0.2) k/uL PT (9.0-12.0) sec INR (<1.2) APTT (22.0-30.0) sec Sodium (137-145) mmol/L Potassium (3.5-5.1) mmol/L Chloride (98-107) mmol/L Carbon Dioxide (22-30) mmol/L Anion Gap mmol/L BUN (7-17) mg/dL Creatinine (0.52-1.04) mg/dL Est GFR (CKD-EPI)AfAm (>60 ml/min/1.73 sqM) Est GFR (CKD-EPI)NonAf (>60 ml/min/1.73 sqM) Glucose (74-99) mg/dL Plasma Lactic Acid Abdoulaye (0.7-2.0) mmol/L Calcium (8.4-10.2) mg/dL Total Bilirubin (0.2-1.3) mg/dL AST (14-36) U/L ALT (4-34) U/L Alkaline Phosphatase (38-126) U/L Troponin I 0.118 H* (0.000-0.034) ng/mL NT-Pro-B Natriuret Pep pg/mL Total Protein (6.3-8.2) g/dL Albumin (3.5-5.0) g/dL Coronavirus (PCR) Not Detected (Not Detectd) Influenza Type A RNA Not Detected (Not Detectd) Influenza Type B (PCR) Not Detected (Not Detectd) - EKG Data EKG Comments: Sinus rhythm. Left bundle branch block. Ventricular rate 86 bpm, LA interval 174 ms, QRS duration 166 ms, QTC 480 ms. EKG interpreted by myself and ED attending. - Radiology Data Radiology results: report reviewed, image reviewed Disposition Clinical Impression: Acute exacerbation of CHF (congestive heart failure), Orthopnea Disposition: ADMITTED IP TO THIS HOSP
--- NOTE | 2022-05-28 07:11 | XR ---
EXAMINATION TYPE: XR chest 2V DATE OF EXAM: 05/28/2022 COMPARISON: 01/22/2022 HISTORY: Short of breath TECHNIQUE: FINDINGS: There is pulmonary interstitial edema. No pleural effusion. Heart size is normal. Thoracic aorta is atheromatous. IMPRESSION: There is moderate diffuse pulmonary interstitial edema that is new compared to old exam. This is possible acute congestive heart failure.
[2022-05-28 07:27] LABS: Basophils # (A) 0.1 k/uL (0-0.2); Basophils % (A) 1 %; Eosinophils # (A) 0.2 k/uL (0-0.7); Eosinophils % (A) 2 %; HCT 47.4 % (34.0-46.0); HGB 16.1 gm/dL (11.4-16.0); Lymphocytes # (A) 3.2 k/uL (1.0-4.8); Lymphocytes % (A) 31 %; MCH 31.1 pg (25.0-35.0); MCHC 34.1 g/dL (31.0-37.0); MCV 91.2 fL (80.0-100.0); Mean Platelet Volume 9.3; Monocytes # (A) 0.4 k/uL (0-1.0); Monocytes % (A) 4 %; Neutrophils # (A) 6.2 k/uL (1.3-7.7); Neutrophils % (A) 61 %; Platelet Count 221 k/uL (150-450); RDW 15.5 % (11.5-15.5); WBC 10.2 k/uL (3.8-10.6)
[2022-05-28 07:37] LABS: Albumin 4.1 g/dL (3.5-5.0); Calcium 8.8 mg/dL (8.4-10.2); Total Bilirubin 1.8 mg/dL (0.2-1.3); Total Protein 7.7 g/dL (6.3-8.2)
[2022-05-28 07:40] LABS: INR 0.9 (<1.2); Partial Thromboplastin Time 24.4 sec (22.0-30.0)
[2022-05-28] MEDS ORDERED: FUROSEMIDE 10 MG/ML 2 ML VIAL IV STA (09:06)
[2022-05-28] MEDS ORDERED: NALOXONE 0.4 MG/ML 1 ML VIAL IV PRN (09:56)
[2022-05-28] MEDS ORDERED: ONDANSETRON 4 MG/2 ML VIAL IVP PRN (09:56)
[2022-05-28] MEDS ORDERED: NITROGLYCERIN SL TABS 0.4 MG TAB SUBLINGUAL PRN (14:37)
--- NOTE | 2022-05-28 15:54 | P.CRDCN ---
History of Present Illness Consult date: 05/28/22 History of present illness: History of Present Illness: The patient is an 89-year-old female with known history of CAD, cardiomyopathy who presented with symptoms of acute dyspnea that occurred last night without any associated chest discomfort, dizziness or palpitations. She may have had an extra load of salt yesterday and became acutely dyspneic with wheezing. She has no peripheral edema, no clear PND nor orthopnea. She has no cough or fever at home. She had an echocardiogram in October that showed a severely impaired ejection fraction of 20-25%. She underwent cardiac catheterization and angioplasty and stenting of the RCA in June in ascending of an acute [place]. She was found at that time to have a 75% stenosis in the mid LAD that was treated medically. Her baseline EKG shows left bundle branch block. She has a history of hypertension, hyperlipidemia, she is a nonsmoker nondiabetic. Medications: Aspirin, Plavix 75 mg daily, Imdur 60 mg daily, Zestril 10 mg daily, metoprolol succinate 12-1/2 mg daily, Lasix 40 mg daily Review of Systems: Respiratory: She had the dyspnea and exertion but no cough. She has no prior history of documented COPD GI: No nausea or vomiting . No history of peptic ulcer disease. No recent GI bleed. : No hematuria or dysuria. Nervous System: No stroke or seizure. Physical Examination: 89-year-old female alert oriented no apparent distress ,Blood pressure 177/80, Heart rate 70 Head: Normocephalic. Eyes: Sclerae nonicteric. Neck: Good carotid upstroke, no bruit, no jugular venous distention. Lungs: Clear to auscultation. Heart: Regular rate and rhythm, S1-S2, no S3, no rub. Systolic ejection murmur. Abdomen: Soft nontender, positive bowel sounds no organomegaly. Extremities: No edema, intact distal pulses. Labs: Hemoglobin 16.1, BUN 17, creatinine 1.13, potassium 4.0. Troponin 0.021 and 0.118. NT proBNP 3030. Chest x-ray with evidence of CHF EKG: Sinus mechanism with left bundle branch block Impression: 1. Acute dyspnea with evidence of CHF in a patient with known severe cardiomyopathy 2. History of CAD with no evidence to suggest acute coronary syndrome 3. Mild troponin elevation, secondary to the CHF 4. History of hypertension 5. History of hyperlipidemia Plan: 1. IV diuretics for 24 hours 2. Add Aldactone and Farxiga 3. Continue beta jerry and REGINA inhibitor 4. Follow blood pressure 5. Follow her renal functions 6. Depending on her progress further recommendations will be made, thank you for this consult we will follow with you. Past Medical History Past Medical History: Chest Pain / Angina, Heart Failure, Diabetes Mellitus, Hypertension, Myocardial Infarction ([place]), Osteoarthritis (OA), Thyroid Disorder Additional Past Medical History / Comment(s): Currently being treated for UTI/abx, diabetes/diet controlled/"pre", arthritis R hand and in back, back pain, hypothyroid, diverticular disease/benign colon polyp, urinary incontinence. CHF Last Myocardial Infarction Date:: 06/29/21 History of Any Multi-Drug Resistant Organisms: None Reported Past Surgical History: Adenoidectomy, Cholecystectomy, Heart Catheterization With Stent, Orthopedic Surgery, Tonsillectomy Additional Past Surgical History / Comment(s): 06/29/21 PCI with 2 stents to RCA, R rotator cuff repair, L carpal tunnel release, R foot bone spur removed, R thumb trigger finger surgery, colonoscopies/polypectomies, D&Cs, bilateral gerardo ract removals. Past Anesthesia/Blood Transfusion Reactions: No Reported Reaction Date of Last Stent Placement:: 06/29/21 Past Psychological History: No Psychological Hx Reported Smoking Status: Former smoker Past Alcohol Use History: None Reported Past Drug Use History: None Reported - Past Family History Father Additional Family Medical History / Comment(s): Father had back surgery Mother Family Medical History: Congestive Heart Failure (CHF) Additional Family Medical History / Comment(s): Mother from chf. Medications and Allergies Home Medications Medication Instructions Recorded Confirmed Type Levothyroxine Sodium [Synthroid] 50 mcg PO DAILY 08/26/18 05/28/22 History Clopidogrel [Plavix] 75 mg PO DAILY #30 tab 07/03/21 05/28/22 Rx Isosorbide Mononitrate ER [Imdur] 60 mg PO DAILY #30 tablet 07/03/21 05/28/22 Rx Metoprolol Succinate (ER) [Toprol 12.5 mg PO DAILY #30 07/03/21 05/28/22 Rx XL] Nitroglycerin Sl Tabs [Nitrostat] 0.4 mg SUBLINGUAL Q5M PRN #30 tab 07/03/21 05/28/22 Rx Furosemide [Lasix] 40 mg PO DAILY 11/04/21 05/28/22 History Atorvastatin [Lipitor] 40 mg PO DAILY 01/22/22 05/28/22 History Aspirin 81 mg PO DAILY #30 tab 01/23/22 05/28/22 Rx lisinopriL [Zestril] 10 mg PO DIRECTED 05/28/22 05/28/22 History Allergies Allergy/AdvReac Type Severity Reaction Status Date / Time sulfur hexafluoride Allergy Chest Pain Verified 05/28/22 13:02 microspheres [From Lumason] acetaminophen [From Lortab] AdvReac Rash/Hives Verified 05/28/22 13:02 amoxicillin AdvReac Nausea & Verified 05/28/22 13:02 Vomiting ciprofloxacin AdvReac Rash/Hives Verified 05/28/22 13:02 hydrocodone [From Lortab] AdvReac Rash/Hives Verified 05/28/22 13:02 NSAIDS (Non-Steroidal AdvReac KIDNEY Verified 05/28/22 13:02 Anti-Inflamma PROBLEMS Physical Exam Vitals: Vital Signs Temp Pulse Resp BP Pulse Ox 05/28/22 12:54 80 18 149/86 98 05/28/22 10:28 71 18 177/85 97 05/28/22 10:00 79 18 97 05/28/22 09:00 80 18 156/82 96 05/28/22 08:00 76 18 165/80 95 05/28/22 07:39 76 16 05/28/22 07:35 98 F 77 18 165/80 95 05/28/22 07:30 74 18 05/28/22 06:33 97.9 F 92 24 160/98 96 Intake and Output 05/28/22 05/28/22 05/28/22 06:59 14:59 22:59 Output Total 200 Balance -200 Output: Urine 200 Other: Weight 58.967 kg Results 05/28/22 06:48 05/28/22 06:48 Cardiac Enzymes 05/28/22 05/28/22 05/28/22 Range/Units 06:48 06:48 09:39 AST 27 (14-36) U/L Troponin I 0.021 0.118 H* (0.000-0.034) ng/mL Coagulation 12/18/22 Range/Units 06:48 PT 10.0 (9.0-12.0) sec APTT 24.4 (22.0-30.0) sec CBC 05/28/22 Range/Units 06:48 WBC 10.2 (3.8-10.6) k/uL RBC 5.20 (3.80-5.40) m/uL Hgb 16.1 H (11.4-16.0) gm/dL Hct 47.4 H (34.0-46.0) % Plt Count 221 (150-450) k/uL Comprehensive Metabolic Panel 05/28/22 Range/Units 06:48 Sodium 139 (137-145) mmol/L Potassium 4.0 (3.5-5.1) mmol/L Chloride 109 H (98-107) mmol/L Carbon Dioxide 22 (22-30) mmol/L BUN 17 (7-17) mg/dL Creatinine 1.13 H (0.52-1.04) mg/dL Glucose 156 H (74-99) mg/dL Calcium 8.8 (8.4-10.2) mg/dL AST 27 (14-36) U/L ALT 18 (4-34) U/L Alkaline Phosphatase 85 (38-126) U/L Total Protein 7.7 (6.3-8.2) g/dL Albumin 4.1 (3.5-5.0) g/dL Current Medications Generic Name Dose Route Start Last Admin Trade Name Freq PRN Reason Stop Dose Admin Aspirin 81 mg 05/28/22 14:45 Aspirin 81 Mg PO DAILY [facility] Atorvastatin Calcium 40 mg 05/29/22 09:00 Atorvastatin 40 Mg Tab PO DAILY [facility] Clopidogrel Bisulfate 75 mg 05/28/22 14:45 Clopidogrel 75 Mg Tab PO DAILY [facility] Famotidine 10 mg 05/28/22 14:45 Famotidine 20 Mg/2 Ml Vial IV Q12HR BRIAN Heparin Sodium (Porcine) 5,000 unit 05/28/22 14:45 Heparin Sodium,Porcine/Pf 5,000 Unit/0.5 Ml Syringe SQ Q12HR BRIAN Isosorbide Mononitrate 60 mg 05/29/22 09:00 Isosorbide Mononitrate Er 60 Mg Tab.Er.24h PO DAILY [facility] Levothyroxine Sodium 50 mcg 05/29/22 06:30 Levothyroxine 50 Mcg Tab PO DAILY@0630 [facility] Lisinopril 10 mg 05/29/22 09:00 Lisinopril 10 Mg Tab PO DAILY [facility] Metoprolol Succinate 12.5 mg 05/29/22 09:00 Metoprolol Succinate (Er) 25 Mg Tab.Er.24h PO DAILY [facility] Naloxone HCl 0.2 mg 05/28/22 09:56 Naloxone 0.4 Mg/Ml 1 Ml Vial IV Q2M PRN Opioid Reversal Nitroglycerin 0.4 mg 05/28/22 14:37 Nitroglycerin Sl Tabs 0.4 Mg Tab SUBLINGUAL Q5M PRN Chest Pain Ondansetron HCl 4 mg 05/28/22 09:56 Ondansetron 4 Mg/2 Ml Vial IVP Q8HR PRN Nausea And Vomiting Intake and Output 05/28/22 05/28/22 05/28/22 06:59 14:59 22:59 Output Total 200 Balance -200 Output: Urine 200 Other: Weight 58.967 kg 05/28/22 06:48 05/28/22 06:48
[2022-05-28] MEDS: FAMOTIDINE 20 MG/2 ML VIAL IV SCH ×2 (16:19→20:16)
[2022-05-28] MEDS: SPIRONOLACTONE 25 MG TAB PO SCH (16:20)
[2022-05-28] MEDS: ASPIRIN 81 MG PO SCH (16:20)
[2022-05-28] MEDS: CLOPIDOGREL 75 MG TAB PO SCH (16:20)
[2022-05-28] MEDS: HEPARIN SODIUM,PORCINE/PF 5,000 UNIT/0.5 ML SYRINGE SQ SCH ×2 (16:20→20:17)
[2022-05-28] MEDS: DAPAGLIFLOZIN PROPANEDIOL 10 MG TABLET PO SCH (16:20)
--- NOTE | 2022-05-28 17:30 | P.HPIM ---
History of Present Illness This is a pleasant 89 result female with multiple medical problems as below Presents because of dyspnea of one-day duration with no chest pain or significant coughing, Other than that patient looks pleasant smile and comfortable, she denies any other complaints no abdominal pain, no nausea vomiting or diarrhea. No urinary complaints like no dysuria or urgency or change in frequency. No headache dizziness weakness or numbness Patient denies smoking alcohol or illicit drugs Vitals stable and patient saturating 90s on room air. CBC is unremarkable, hemoglobin 16.1, INR 0.9, creatinine 1.1 which is looks like baseline Liver enzymes and risks of BMP is unremarkable. ProBNP is 3030. Troponin first one is normal 0.0-1 second one is elevated 0.118. Viruses including avina and influenza not detected EKG showing sinus rhythm at 86 with left bundle branch block and QTC 480 Chest x-ray: Possible CHF with pulmonary interstitial edema that's new compared to old exam Patient is started on Lasix 20 mg 1 Review of Systems Review of systems CONSTITUTIONAL: No fever, no malaise, no fatigue. HEENT: No recent visual problems or hearing problems. Denied any sore throat. CARDIOVASCULAR: No orthopnea, PND, no palpitations, no syncope. PULMONARY: No chest wall tenderness, no vomiting, no abdominal pain. Normoactive bowel sounds. NEUROLOGICAL: No headaches, no weakness, no numbness. HEMATOLOGICAL: Denies any bleeding or petechiae. GENITOURINARY: Denies any burning micturition, frequency, or urgency. MUSCULOSKELETAL/RHEUMATOLOGICAL: Denies any joint pain, swelling, or any muscle pain. ENDOCRINE: Denies any polyuria or polydipsia. Past Medical History Past Medical History: Chest Pain / Angina, Heart Failure, Diabetes Mellitus, Hypertension, Myocardial Infarction (AR), Osteoarthritis (OA), Thyroid Disorder Additional Past Medical History / Comment(s): Currently being treated for UTI/abx, diabetes/diet controlled/"pre", arthritis R hand and in back, back pain, hypothyroid, diverticular disease/benign colon polyp, urinary incontinence. CHF Last Myocardial Infarction Date:: 06/29/21 History of Any Multi-Drug Resistant Organisms: None Reported Past Surgical History: Adenoidectomy, Cholecystectomy, Heart Catheterization With Stent, Orthopedic Surgery, Tonsillectomy Additional Past Surgical History / Comment(s): 06/29/21 PCI with 2 stents to RCA, R rotator cuff repair, L carpal tunnel release, R foot bone spur removed, R thumb trigger finger surgery, colonoscopies/polypectomies, D&Cs, bilateral cataract removals. Past Anesthesia/Blood Transfusion Reactions: No Reported Reaction Date of Last Stent Placement:: 06/29/21 Past Psychological History: No Psychological Hx Reported Smoking Status: Former smoker Past Alcohol Use History: None Reported Past Drug Use History: None Reported - Past Family History Father Additional Family Medical History / Comment(s): Father had back surgery Mother Family Medical History: Congestive Heart Failure (CHF) Additional Family Medical History / Comment(s): Mother from chf. Medications and Allergies Home Medications Medication Instructions Recorded Confirmed Type Levothyroxine Sodium [Synthroid] 50 mcg PO DAILY 08/26/18 05/28/22 History Clopidogrel [Plavix] 75 mg PO DAILY #30 tab 07/03/21 05/28/22 Rx Isosorbide Mononitrate ER [Imdur] 60 mg PO DAILY #30 tablet 07/03/21 05/28/22 Rx Metoprolol Succinate (ER) [Toprol 12.5 mg PO DAILY #30 07/03/21 05/28/22 Rx XL] Nitroglycerin Sl Tabs [Nitrostat] 0.4 mg SUBLINGUAL Q5M PRN #30 tab 07/03/21 05/28/22 Rx Furosemide [Lasix] 40 mg PO DAILY 11/04/21 05/28/22 History Atorvastatin [Lipitor] 40 mg PO DAILY 01/22/22 05/28/22 History Aspirin 81 mg PO DAILY #30 tab 01/23/22 05/28/22 Rx lisinopriL [Zestril] 10 mg PO DIRECTED 05/28/22 05/28/22 History Allergies Allergy/AdvReac Type Severity Reaction Status Date / Time sulfur hexafluoride Allergy Chest Pain Verified 05/28/22 13:02 microspheres [From Lumason] acetaminophen [From Lortab] AdvReac Rash/Hives Verified 05/28/22 13:02 amoxicillin AdvReac Nausea & Verified 05/28/22 13:02 Vomiting ciprofloxacin AdvReac Rash/Hives Verified 05/28/22 13:02 hydrocodone [From Lortab] AdvReac Rash/Hives Verified 05/28/22 13:02 NSAIDS (Non-Steroidal AdvReac KIDNEY Verified 05/28/22 13:02 Anti-Inflamma PROBLEMS Physical Exam Vitals: Vital Signs Temp Pulse Resp BP Pulse Ox 05/28/22 12:54 80 18 149/86 98 05/28/22 10:28 71 18 177/85 97 05/28/22 10:00 79 18 97 05/28/22 09:00 80 18 156/82 96 05/28/22 08:00 76 18 165/80 95 05/28/22 07:39 76 16 05/28/22 07:35 98 F 77 18 165/80 95 05/28/22 07:30 74 18 05/28/22 06:33 97.9 F 92 24 160/98 96 Intake and Output 05/27/22 05/28/22 05/28/22 22:59 06:59 14:59 Output Total 200 Balance -200 Output: Urine 200 Other: Weight 58.967 kg GENERAL: The patient is alert and oriented x3, not in any acute distress. Well developed, well nourished. HEENT: Pupils are round and equally reacting to light. EOMI. No scleral icterus. No conjunctival pallor. Normocephalic, atraumatic. No pharyngeal erythema. No thyromegaly. CARDIOVASCULAR: S1 and S2 present. No murmurs, rubs, or gallops. PULMONARY: Chest is clear to auscultation, no wheezing or crackles. ABDOMEN: Soft, nontender, nondistended, normoactive bowel sounds. No palpable organomegaly. MUSCULOSKELETAL: No joint swelling or deformity. EXTREMITIES: No cyanosis, clubbing, or pedal edema. NEUROLOGICAL: Gross neurological examination did not reveal any focal deficits. SKIN: No rashes. no petechiae. Results CBC & Chem 7: 05/28/22 06:48 05/28/22 06:48 Labs: Abnormal Lab Results - Last 24 Hours (Table) 05/28/22 05/28/22 05/28/22 Range/Units 06:48 06:48 09:39 Hgb 16.1 H (11.4-16.0) gm/dL Hct 47.4 H (34.0-46.0) % Chloride 109 H (98-107) mmol/L Creatinine 1.13 H (0.52-1.04) mg/dL Glucose 156 H (74-99) mg/dL Total Bilirubin 1.8 H (0.2-1.3) mg/dL Troponin I 0.118 H* (0.000-0.034) ng/mL Assessment and Plan Assessment: Acute CHF exacerbation Mildly elevated troponin rule out coronary artery disease. Doubt significant coronary artery disease Diabetes mellitus Hypertension Hypothyroidism History of osteoarthritis History of coronary artery disease status post stents 2 Plan: Continue with IV Lasix Monitor input and output and creatinine Cardiology consult continue with aspirin and Plavix Labs and medication were reviewed.. Continue same treatment. Continue with symptomatic treatment. Resume home medication. Monitor labs and vitals. DVT and GI prophylaxis. Further recommendations as per clinical course of the pat ient DVT prophylaxis: Subcutaneous heparin GI Prophylaxis: Pepcid PT/OT: Pending Prognosis is guarded
[2022-05-28] MEDS: FUROSEMIDE 10 MG/ML 4 ML VIAL IV SCH (20:16)
[2022-05-29 04:09] VITALS: RESP 16
[2022-05-29] MEDS ORDERED: LEVOTHYROXINE 50 MCG TAB PO SCH (06:30)
[2022-05-29 07:29] LABS: Glucose,Whole Blood 119 mg/dL (70-110)
[2022-05-29] MEDS: FAMOTIDINE 20 MG/2 ML VIAL IV SCH (07:42)
[2022-05-29] MEDS: FUROSEMIDE 10 MG/ML 4 ML VIAL IV SCH (07:42)
[2022-05-29] MEDS: ASPIRIN 81 MG PO SCH (07:42)
[2022-05-29] MEDS: CLOPIDOGREL 75 MG TAB PO SCH (07:42)
[2022-05-29] MEDS: HEPARIN SODIUM,PORCINE/PF 5,000 UNIT/0.5 ML SYRINGE SQ SCH (07:42)
[2022-05-29] MEDS: DAPAGLIFLOZIN PROPANEDIOL 10 MG TABLET PO SCH ×2 (07:42→07:48)
[2022-05-29] MEDS: SPIRONOLACTONE 25 MG TAB PO SCH (07:42)
[2022-05-29 07:54] VITALS: BP 135/72; PULSE 65; TEMP 97.8
[2022-05-29 08:10] LABS: Calcium 8.9 mg/dL (8.4-10.2)
[2022-05-29] MEDS ORDERED: METOPROLOL SUCCINATE (ER) 25 MG TAB.ER.24H PO SCH ×2 (09:00)
[2022-05-29] MEDS ORDERED: lisinopriL 10 MG TAB PO SCH (09:00)
[2022-05-29] MEDS ORDERED: ISOSORBIDE MONONITRATE ER 60 MG TAB.ER.24H PO SCH (09:00)
[2022-05-29] MEDS ORDERED: ATORVASTATIN 40 MG TAB PO SCH (09:00)
--- NOTE | 2022-05-29 09:06 | P.PN ---
Subjective History of Present Illness: The patient is an 89-year-old female with known history of CAD, cardiomyopathy who presented with symptoms of acute dyspnea that occurred last night without any associated chest discomfort, dizziness or palpitations. She may have had an extra load of salt yesterday and became acutely dyspneic with wheezing. She has no peripheral edema, no clear PND nor orthopnea. She has no cough or fever at home. She had an echocardiogram in October that showed a severely impaired ejection fraction of 20-25%. She underwent cardiac catheterization and angioplasty and stenting of the RCA in June in ascending of an acute RI. She was found at that time to have a 75% stenosis in the mid LAD that was treated medically. Her baseline EKG shows left bundle branch block. She has a history of hypertension, hyperlipidemia, she is a nonsmoker nondiabetic. Medications: Aspirin, Plavix 75 mg daily, Imdur 60 mg daily, Zestril 10 mg daily, metoprolol succinate 12-1/2 mg daily, Lasix 40 mg daily 05/29 Patient seen and examined. Patient states she feels back to normal. Her blood pressure on presentation was in the 150s to 160s however down to 120s to 130s systolics. She denies any chest pain or pressure. Aldactone was added. She was given IV Lasix with good response. Denies any orthopnea. Physical Examination: Vitals reviewed Head: Normocephalic. Eyes: Sclerae nonicteric. Neck: Good carotid upstroke, no bruit, no jugular venous distention. Lungs: Clear to auscultation. Heart: Regular rate and rhythm, S1-S2, no S3, no rub. Systolic ejection murmur. Abdomen: Soft nontender, positive bowel sounds no organomegaly. Extremities: No edema, intact distal pulses. Impression: 1. Acute dyspnea with evidence of CHF in a patient with known severe cardiomyopathy 2. History of CAD with no evidence to suggest acute coronary syndrome 3. Mild troponin elevation, secondary to the CHF 4. History of hypertension 5. History of hyperlipidemia 6. Acute on chronic systolic heart failure Plan: Patient appears back to normal. Heart a presentation likely exacerbated by hypertension and discuss checking blood pressure at home. Continue with Aldactone and remainder of heart failure regimen going home. Outpatient follow- up with Dr. Bonilla in 1 week. Objective - Vital Signs Vital signs: Vital Signs Temp 97.8 F 05/29/22 07:39 Pulse 65 05/29/22 07:39 Resp 16 05/29/22 07:39 BP 135/72 05/29/22 07:39 Pulse Ox 96 05/29/22 07:39 FiO2 Intake & Output 05/28/22 05/29/22 05/29/22 18:59 06:59 18:59 Output Total 200 Balance -200 Weight 58.967 kg Output: Urine 200 Other: # Voids 1 1 - Labs CBC & Chem 7: 05/28/22 06:48 05/29/22 06:58 Labs: Abnormal Lab Results - Last 24 Hours (Table) 05/28/22 05/29/22 05/29/22 Range/Units 09:39 06:58 07:27 BUN 23 H (7-17) mg/dL Creatinine 1.55 H (0.52-1.04) mg/dL Glucose 124 H (74-99) mg/dL POC Glucose (mg/dL) 119 H (70-110) mg/dL Troponin I 0.118 H* (0.000-0.034) ng/mL
--- NOTE | 2022-05-29 20:57 | P.DS ---
Providers Date of admission: 05/28/22 09:56 Attending physician: Junior Briseno MD Consults: 05/28/22 09:56 Consult Physician Urgent Consulting Provider: John Salamanca Consult Reason/Comments: CHF exacerbation Do you want consulting provider notified?: Yes Primary care physician: [facility] Course: Diagnoses Acute CHF exacerbation Mildly elevated troponin rule out coronary artery disease. Doubt significant coronary artery disease Diabetes mellitus Hypertension Hypothyroidism History of osteoarthritis History of coronary artery disease status post stents 2 Hospital course: This is a pleasant 89 result female with multiple medical problems Presents because of dyspnea of one-day duration with no chest pain or significant coughing,patient found to have acute CHF because of uncontrolled blood pressure, her metoprolol dose increased 12.5. To 25 a started and Aldactone, her blood pressure improved. She was treated with IV Lasix 1 day and then switched to oral Lasix. On the day of discharge she is pretty back to her baseline. No dyspnea or chest pain. No other GI or indirect complaint. Patient was fit for discharge by cardiology team. Problems and management plan were discussed with the patient and he verbalized understanding and acceptance Patient was found stable and can be discharged home in guarded prognosis however he needs follow-up as an outpatient. Patient was instructed to follow up with PCP Dr. Marino within one week and patient agrees patient also was instructed to follow up with her hog killer Dr. Bonilla in one week and she agrees to call and make her own appointment Physical exam Gen: patient is a AAOx3, no distress CVS: S1-S2, RRR, no murmur Lungs: B/L CTA, no wheezing Abdomen: soft, no distention, no tenderness, positive bowel sounds Extremity: no leg edema or induration Time spent more than 35 minutes Plan - Discharge Summary Discharge Rx Participant: No New Discharge Prescriptions: New Metoprolol Succinate (ER) [Toprol XL] 25 mg PO DAILY #30 tab Spironolactone [Aldactone] 25 mg PO DAILY #30 tab Dapagliflozin Propanediol [Farxiga] 10 mg PO DAILY #30 tab Continue Levothyroxine Sodium [Synthroid] 50 mcg PO DAILY Nitroglycerin Sl Tabs [Nitrostat] 0.4 mg SUBLINGUAL Q5M PRN #30 tab PRN Reason: Chest Pain Clopidogrel [Plavix] 75 mg PO DAILY #30 tab Atorvastatin [Lipitor] 40 mg PO DAILY Furosemide [Lasix] 40 mg PO DAILY #30 tab Isosorbide Mononitrate ER [Imdur] 60 mg PO DAILY #30 tablet Aspirin 81 mg PO DAILY #30 tab lisinopriL [Zestril] 10 mg PO DIRECTED Discontinued Metoprolol Succinate (ER) [Toprol XL] 12.5 mg PO DAILY #30 Discharge Medication List Levothyroxine Sodium [Synthroid] 50 mcg PO DAILY 08/26/18 [History] Clopidogrel [Plavix] 75 mg PO DAILY #30 tab 07/03/21 [Rx] Isosorbide Mononitrate ER [Imdur] 60 mg PO DAILY #30 tablet 07/03/21 [Rx] Nitroglycerin Sl Tabs [Nitrostat] 0.4 mg SUBLINGUAL Q5M PRN #30 tab 07/03/21 [Rx] Atorvastatin [Lipitor] 40 mg PO DAILY 01/22/22 [History] Aspirin 81 mg PO DAILY #30 tab 01/23/22 [Rx] lisinopriL [Zestril] 10 mg PO DIRECTED 05/28/22 [History] Dapagliflozin Propanediol [Farxiga] 10 mg PO DAILY #30 tab 05/29/22 [Rx] Furosemide [Lasix] 40 mg PO DAILY #30 tab 05/29/22 [Rx] Metoprolol Succinate (ER) [Toprol XL] 25 mg PO DAILY #30 tab 05/29/22 [Rx] Spironolactone [Aldactone] 25 mg PO DAILY #30 tab 05/29/22 [Rx] Follow up Appointment(s)/Referral(s): Dwaine Fernandez DO [Primary Care Provider] - 06/07/22 9:00 am Alex Bonilla MD [STAFF PHYSICIAN] - 06/15/22 2:15 pm Patient Instructions/Handouts: Heart Failure (DC) Activity/Diet/Wound Care/Special Instructions: heart healthy diet activity is restricted till you see your doctor Discharge Disposition: HOME SELF-CARE
[2022-05-29] MEDS ORDERED: FAMOTIDINE 20 MG TAB PO SCH (21:00)
== END 2022-05-29 10:45 | disposition home or self-care (01) | DRG 291 ==
LOC: EC 06:28 → 5NMEDONC 09:56 → 3SCARD 10:27
PROVIDERS: ADMIT Internal Medicine; ATTEND Internal Medicine
DX: I11.0 Hypertensive heart disease with heart failure (principal); I50.23 Acute on chronic systolic (congestive) heart failure; J84.9 Interstitial pulmonary disease, unspecified; E03.9 Hypothyroidism, unspecified; I25.10 Atherosclerotic heart disease of native coronary artery without angina pectoris; Z20.822 Contact with and (suspected) exposure to COVID-19; Z98.41 Cataract extraction status, right eye; R79.89 Other specified abnormal findings of blood chemistry; K57.90 Diverticulosis of intestine, part unspecified, without perforation or abscess without bleeding; E11.9 Type 2 diabetes mellitus without complications; M19.90 Unspecified osteoarthritis, unspecified site; E78.5 Hyperlipidemia, unspecified; M19.041 Primary osteoarthritis, right hand; I25.2 Old myocardial infarction; I42.9 Cardiomyopathy, unspecified; I44.7 Left bundle-branch block, unspecified; Z79.02 Long term (current) use of antithrombotics/antiplatelets; Z79.82 Long term (current) use of aspirin; Z79.890 Hormone replacement therapy; Z79.899 Other long term (current) drug therapy; Z87.19 Personal history of other diseases of the digestive system; Z87.891 Personal history of nicotine dependence; Z95.5 Presence of coronary angioplasty implant and graft; Z82.49 Family history of ischemic heart disease and other diseases of the circulatory system; Z88.8 Allergy status to other drugs, medicaments and biological substances; Z88.1 Allergy status to other antibiotic agents; Z88.6 Allergy status to analgesic agent; Z98.42 Cataract extraction status, left eye; Z86.010 Personal history of colon polyps; Z87.440 Personal history of urinary (tract) infections; Z90.49 Acquired absence of other specified parts of digestive tract; Z88.5 Allergy status to narcotic agent; Z88.2 Allergy status to sulfonamides
CPT/HCPCS: 36415; 71046; 80048; 80053; 83605; 83880; 84484; 85025; 85610; 85730; 87502; 87635; 93005; 94640; 96374; 99285